=== PATIENT | male | born 1935 | race Caucasian/White ===

== ENCOUNTER 2017-01-31 03:10 | Emergency (ER) | payer MEDICAID, MEDICARE ==
[2017-01-31] MEDS ORDERED: ONDANSETRON 4 MG TAB.RAPDIS PO ONE (03:44)
--- NOTE | 2017-01-31 03:48 | ER Document Report ---
ED Blood Sugar Problem - General Chief Complaint: Low Blood Sugar Stated Complaint: BLOOD SUGAR PROBLEM Notes: The patient is a 81-year-old male, past medical history diabetes, presents after his accidentally gave him 20 units of Humalog instead of his usual 4 units of Humalog at midnight. He started to feel nauseous. EMS checked his blood sugar and they were 151, 99 and 148 while transporting him. Patient denies chest pain, shortness of breath, vomiting, diarrhea, constipation, abdominal pain, fevers or urinary symptoms. TRAVEL OUTSIDE OF THE [place] IN LAST 30 DAYS: No - Related Data Allergies/Adverse Reactions: Sulfa (Sulfonamide Antibiotics) Allergy (Unknown, Verified 07/13/15 21:33) Unknown childhood reaction ciprofloxacin [From Cipro] Allergy (Verified 07/13/15 21:33) Vomiting Penicillins Allergy (Verified 07/13/15 21:33) Itch, rash fentanyl [Fentanyl] Adverse Reaction (Verified 07/13/15 21:33) agitation when given in conjunction with Versed midazolam HCl [From Versed] Adverse Reaction (Verified 07/13/15 21:33) agitation when given in conjunction with Fentanyl Past Medical History - General Information source: Patient - Social History Smoking Status: Unknown if Ever Smoked Family History: Reviewed & Not Pertinent - Past Medical History Cardiac Medical History: Reports: Hx Coronary Artery Disease, Hx Heart Attack - NSTEMI 10/25/14, Hx Hypercholesterolemia, Hx Hypertension Neurological Medical History: Reports: Hx Cerebrovascular Accident - x 2, 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, RIGHT sided weakness, Hx Seizures - r/t episodes of hypoglycemia only Endocrine Medical History: Reports: Hx Diabetes Mellitus Type 2, Hx Hypothyroidism Renal/ Medical History: Reports: Hx Benign Prostatic Hyperplasia - requires straight cath for all bladder emptying Malignancy Medical History: GI Medical History: Reports: Hx Gastroesophageal Reflux Disease Musculoskeltal Medical History: Reports Hx Arthritis Psychiatric Medical History: Reports: Hx Depression Traumatic Medical History: Reports: Hx Fractures - LT hip approx 6 years ago Infectious Medical History: Past Surgical History: Reports: Hx Appendectomy, Hx Cholecystectomy, Hx Orthopedic Surgery - x2 hip replacement. - Immunizations Hx Diphtheria, Pertussis, Tetanus Vaccination: Yes Hx Pneumococcal Vaccination: 10/14/14 Review of Systems - Review of Systems Notes: REVIEW OF SYSTEMS: CONSTITUTIONAL: -fevers, -chills EENT: -eye pain, -difficulty swallowing, -nasal congestion CARDIOVASCULAR:-chest pain, -syncope. RESPIRATORY: -cough, -SOB GASTROINTESTINAL: -abdominal pain, +nausea, -vomiting, -diarrhea GENITOURINARY: -dysuria, -hematuria MUSCULOSKELETAL: -back pain, -neck pain SKIN: -rash or skin lesions. HEMATOLOGIC: -easy bruising or bleeding. LYMPHATIC: -swollen, enlarged glands. NEUROLOGICAL: -altered mental status or loss of consciousness, -headache, - neurologic symptoms PSYCHIATRIC: -anxiety, -depression. ALL OTHER SYSTEMS REVIEWED AND NEGATIVE. Physical Exam - Notes Notes: PHYSICAL EXAMINATION: GENERAL: Well-appearing, well-nourished and in no acute distress. HEAD: Atraumatic, normocephalic. EYES: Pupils equal round and reactive to light, extraocular movements intact, sclera anicteric, conjunctiva are normal. ENT: nares patent, oropharynx clear without exudates. Moist mucous membranes. NECK: Normal range of motion, supple without lymphadenopathy LUNGS: Breath sounds clear to auscultation bilaterally and equal. No wheezes rales or rhonchi. HEART: Regular rate and rhythm without murmurs ABDOMEN: Soft, nontender, normoactive bowel sounds. No guarding, no rebound. No masses appreciated. EXTREMITIES: Normal range of motion, no pitting or edema. Left BKA. NEUROLOGICAL: Cranial nerves grossly intact. Normal speech, normal gait. Normal sensory, motor, and reflex exams. PSYCH: Normal mood, normal affect. SKIN: Warm, Dry, normal turgor, no rashes or lesions noted. Course - Re-evaluation Re-evalutation: After Zofran, patient given food. Repeat Accu-Cheks checked during half-life of Humalog and patient did not become hypoglycemic. Will discharge him home - Laboratory Laboratory results interpreted by me: 01/31/17 01/31/17 03:23 04:41 POC Glucose 118 H 123 H Discharge - Discharge Clinical Impression: Overdose of insulin Qualifiers: Encounter type: initial encounter Injury intent: accidental or unintentional Qualified Code(s): T38.3X1A - Poisoning by insulin and oral hypoglycemic [ antidiabetic] drugs, accidental (unintentional), initial encounter Condition: Stable Disposition: HOME, SELF-CARE Additional Instructions: Overdose You have taken more medication than you should have. After your evaluation and care, it is felt that your overdose is not likely to be harmful or of any significant consequences to you and you are being discharged. In the future, you should be careful not to take more medications than what is prescribed for you. Although your overdose does not seem to be of any danger to you at this time, if you develop any unusual or unexpected symptoms after your discharge, you should return to the Emergency Department immediately for re-evaluation.
[2017-01-31 05:58] VITALS: BP 164/69
== END 2017-01-31 06:27 | disposition home or self-care (01) ==
LOC: ER 03:10
DX: T38.3X1A Poisoning by insulin and oral hypoglycemic [antidiabetic] drugs, accidental (unintentional), initial encounter (principal); R11.0 Nausea; E11.9 Type 2 diabetes mellitus without complications; Z79.4 Long term (current) use of insulin; I25.10 Atherosclerotic heart disease of native coronary artery without angina pectoris; I25.2 Old myocardial infarction; I10 Essential (primary) hypertension; Z86.73 Personal history of transient ischemic attack (TIA), and cerebral infarction without residual deficits; Z88.2 Allergy status to sulfonamides; Z88.1 Allergy status to other antibiotic agents; Z88.0 Allergy status to penicillin; Z89.512 Acquired absence of left leg below knee
CPT/HCPCS: 99283; 82962; A9270; S0119

== ENCOUNTER → 2017-04-15 | Outpatient (CLI) | payer MEDICARE ==
--- NOTE | 2017-04-17 07:35 | XCELERA REPORT ---
[address] [address] Lower Extremity Arterial Evaluation Name: NELSON BHAT Age: 82 yrs Gender: Male : 1935 Patient Status: Outpatient Patient Location: Study Date: 04/15/2017 03:31 PM Procedure: A color flow and duplex scan of the lower extremity arteries was performed on the left with velocity and waveform anaylsis. Reason For Study: ULCER LEFT FOOT Ordering Physician: KIM KENNEDY Performed By: Azam Putnam Measurements and Calculations Right Left TIMING ADJUSTER PSV 103.1 cm/sec Prox PFA PSV -160.1 cm/sec Dist SFA PSV -92.3 cm/sec Dist Pop A PSV 71.9 cm/sec Prox TYE PSV 38.0 cm/sec Mid OPTOMETRIC TECHNOLOGIST PSV 59.7 cm/sec George Pedis PSV 21.0 cm/sec Left Side Arterial Evaluation Normal velocity and triphasic waveforms noted from the Common Femoral artery to the Popliteal artery. Occlusion with no flow distally,in Anterior and Posterior Tibial arteries. Little distal flow except for monophasic with moderately preserved velocity in the Dorsalis Pedis. Occlusion as noted. Ankle Brachial index was not done. Interpretation Summary Severe hemodynamically significant lesions in the left lower extremity only, on duplex imaging, at rest. : KIM KENNEDY > Kim Kennedy
== END ==
LOC: SP 15:16
PROVIDERS: ATTEND Surgery
DX: L97.522 Non-pressure chronic ulcer of other part of left foot with fat layer exposed (principal)
CPT/HCPCS: 93926

== ENCOUNTER → 2017-05-16 | Outpatient (CLI) | payer MEDICARE ==
[2017-05-16 14:49] LABS: ABSOLUTE EOSINOPHILS # (AUTO) 0.1 10^3/uL (0.0-0.6); ABSOLUTE LYMPHOCYTES (AUTO) 1.7 10^3/uL (0.5-4.7); ABSOLUTE MONOCYTES (AUTO) 0.4 10^3/uL (0.1-1.4); ABSOLUTE NEUT (AUTO) 2.4 10^3/uL (1.7-8.2); BASOPHILS % (AUTO) 0.7 % (0-2); EOSINOPHILS % (AUTO) 2.2 % (0-6); HEMATOCRIT 31.3 % (37.9-51.0); HGB HCT DIFFERENCE 1.7; LYMPHOCYTES % (AUTO) 36.4 % (13-45); MEAN CORPUSCULAR HEMOGLOBIN 31.5 pg (27.0-33.4); MEAN CORPUSCULAR HGB CONC 35.1 g/dL (32.0-36.0); MEAN CORPUSCULAR VOLUME 90 fl (80-97); MONOCYTES % (AUTO) 8.2 % (3-13); RED BLOOD COUNT 3.49 10^6/uL (4.35-5.55); RED CELL DISTRIBUTION WIDTH 13.1 % (11.5-14.0); SEGMENTED NEUTROPHILS % (AUTO) 52.5 % (42-78); WHITE BLOOD COUNT 4.5 10^3/uL (4.0-10.5)
[2017-05-16 15:12] LABS: ALANINE AMINOTRANSFERASE 19 U/L (21-72); ALBUMIN 3.7 g/dL (3.5-5.0); ALKALINE PHOSPHATASE 75 U/L (38-126); ANION GAP 8 (5-19); ASPARTATE AMINO TRANSFERASE 20 U/L (17-59); BILIRUBIN,DIRECT 0.4 mg/dL (0.0-0.4); BILIRUBIN,TOTAL 0.5 mg/dL (0.2-1.3); BLOOD UREA NITROGEN 23 mg/dL (7-20); CALCIUM 9.9 mg/dL (8.4-10.2); CARBON DIOXIDE 31 mmol/L (22-30); CHLORIDE 101 mmol/L (98-107); CHOLESTEROL 124.65 mg/dL (0-200); CREATININE RESULT 1.82 mg/dL (0.52-1.25); Direct HDL 39 mg/dL (>40); GLUCOSE 166 mg/dL (75-110); POTASSIUM 4.4 mmol/L (3.6-5.0); SODIUM 140.4 mmol/L (137-145); TOTAL PROTEIN 6.7 g/dL (6.3-8.2); TRIGLYCERIDES 99 mg/dL (<150)
[2017-05-16 15:24] LABS: DIRECT LDL 66 mg/dL (<100)
[2017-05-16 15:41] LABS: THYROID STIMULATING HORMONE 2.42 uIU/mL (0.47-4.68)
[2017-05-18 10:57] LABS: VITAMIN D 25-HYDROXY 32.2 ng/mL (30.0-100.0)
== END ==
LOC: OD 13:44
PROVIDERS: ATTEND Internal Medicine Nephrology
DX: N18.3 Chronic kidney disease, stage 3 (moderate) (principal); E11.65 Type 2 diabetes mellitus with hyperglycemia; D63.8 Anemia in other chronic diseases classified elsewhere; E78.2 Mixed hyperlipidemia
CPT/HCPCS: 36415; 80053; 80061; 82306; 83036; 83970; 84439; 84443; 85025

== ENCOUNTER 2017-06-28 13:16 | Emergency (ER) | payer MEDICARE ==
[2017-06-28] MEDS ORDERED: LIDOCAINE 2% URO-JET 5 ML KIT MM ONE (13:38)
[2017-06-28 14:19] LABS: APPEARANCE,URINE CLOUDY; BILIRUBIN,URINE NEGATIVE (NEGATIVE); GLUCOSE, URINE >=500 mg/dL (NEGATIVE); KETONES,URINE NEGATIVE (NEGATIVE); LEUKOCYTE ESTERASE,URINE LARGE (NEGATIVE); NITRITE,URINE NEGATIVE (NEGATIVE); PROTEIN,URINE 100 mg/dL (NEGATIVE); UROBILINOGEN,URINE NEGATIVE mg/dL (<2.0)
[2017-06-28] MEDS ORDERED: CEPHALEXIN 500 MG CAPSULE PO ONE (15:25)
--- NOTE | 2017-06-28 15:27 | ER Document Report ---
ED General - General Chief Complaint: Penile Pain Stated Complaint: GROIN PAIN Time Seen by Provider: 06/28/17 13:28 TRAVEL OUTSIDE OF THE [place] IN LAST 30 DAYS: No - HPI Patient complains to provider of: Difficulty in urinating Notes: Patient coming in for difficulty urinating. Patient states urinated this morning however has not been able to urinate since that time. Patient states suprapubic pain patient states he feels the urge to urinate however cannot. Denies any recent Fajardo catheter instrumentation denies any fevers chills nausea vomiting patient resting calmly upon my evaluation. - Related Data Allergies/Adverse Reactions: Sulfa (Sulfonamide Antibiotics) Allergy (Unknown, Verified 07/13/15 21:33) Unknown childhood reaction ciprofloxacin [From Cipro] Allergy (Verified 07/13/15 21:33) Vomiting Penicillins Allergy (Verified 07/13/15 21:33) Itch, rash fentanyl [Fentanyl] Adverse Reaction (Verified 07/13/15 21:33) agitation when given in conjunction with Versed midazolam HCl [From Versed] Adverse Reaction (Verified 07/13/15 21:33) agitation when given in conjunction with Fentanyl Past Medical History - Social History Smoking Status: Never Smoker Chew tobacco use (# tins/day): No Frequency of alcohol use: None Drug Abuse: None Family History: Reviewed & Not Pertinent Patient has suicidal ideation: No Patient has homicidal ideation: No - Past Medical History Cardiac Medical History: Reports: Hx Coronary Artery Disease, Hx Heart Attack - NSTEMI 10/25/14, Hx Hypercholesterolemia, Hx Hypertension Neurological Medical History: Reports: Hx Cerebrovascular Accident - x 2, 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 Denies: Hx Peritoneal Dialysis Malignancy Medical History: GI Medical History: Reports: Hx Gastroesophageal Reflux Disease Musculoskeltal Medical History: Reports Hx Arthritis Psychiatric Medical History: Reports: Hx Depression Traumatic Medical History: Reports: Hx Fractures - LT hip approx 6 years ago Infectious Medical History: Past Surgical History: Reports: Hx Appendectomy, Hx Cholecystectomy, Hx Orthopedic Surgery - x2 hip replacement. - Immunizations Hx Diphtheria, Pertussis, Tetanus Vaccination: Yes Hx Pneumococcal Vaccination: 10/14/14 Review of Systems - Review of Systems Constitutional: No symptoms reported EENT: No symptoms reported Cardiovascular: No symptoms reported Respiratory: No symptoms reported Gastrointestinal: No symptoms reported Genitourinary: Retention Male Genitourinary: No symptoms reported Musculoskeletal: No symptoms reported Skin: No symptoms reported Hematologic/Lymphatic: No symptoms reported Neurological/Psychological: No symptoms reported -: Yes All other systems reviewed and negative Physical Exam - Vital signs Vitals: Temp Pulse Resp BP Pulse Ox 97.9 F 78 18 176/90 H 98 06/28/17 13:56 06/28/17 13:56 06/28/17 13:56 06/28/17 13:56 06/28/17 13:56 Interpretation: Normal - General General appearance: Appears well, Alert - HEENT Head: Normocephalic, Atraumatic Eyes: Normal Pupils: PERRL - Respiratory Respiratory status: No respiratory distress Chest status: Nontender Breath sounds: Normal Chest palpation: Normal - Cardiovascular Rhythm: Regular Heart sounds: Normal auscultation Murmur: No - Abdominal Inspection: Normal Distension: No distension Bowel sounds: Normal Tenderness: Nontender Organomegaly: No organomegaly - Genitourinary Inspection: Normal Tenderness: Nontender Cremasteric reflex: Normal Scrotum: Normal - Back Back: Normal, Nontender - Extremities General upper extremity: Normal inspection, Nontender, Normal color, Normal ROM , Normal temperature General lower extremity: Normal inspection, Nontender, Normal color, Normal ROM , Normal temperature, Normal weight bearing. No: Dereje's sign - Neurological Neuro grossly intact: Yes Cognition: Normal Orientation: AAOx4 Ivan Coma Scale Eye Opening: Spontaneous [place] Coma Scale Verbal: Oriented Ivan Coma Scale Motor: Obeys Commands [place] Coma Scale Total: 15 Speech: Normal Motor strength normal: LUE, RUE, LLE, RLE Sensory: Normal - Psychological Associated symptoms: Normal affect, Normal mood - Skin Skin Temperature: Warm Skin Moisture: Dry Skin Color: Normal Course - Re-evaluation Re-evalutation: 06/28/17 18:03 Urinalysis does show signs of infection. We will continue with the Fajardo catheter due to retention will discharge patient home follow-up with his PCP and urology. - Vital Signs Vital signs: Temp Pulse Resp BP Pulse Ox 97.7 F 85 18 175/76 H 99 06/28/17 17:37 06/28/17 17:37 06/28/17 17:37 06/28/17 17:37 06/28/17 14:21 - Laboratory Laboratory results interpreted by me: 06/28/17 06/28/17 14:00 17:15 POC Glucose 159 H Urine Protein 100 H Urine Glucose (UA) >=500 H Urine Blood SMALL H Ur Leukocyte Esterase LARGE H Discharge - Discharge Clinical Impression: Urinary retention UTI (urinary tract infection) Qualifiers: Urinary tract infection type: site unspecified Hematuria presence: without hematuria Qualified Code(s): N39.0 - Urinary tract infection, site not specified Condition: Good Disposition: HOME, SELF-CARE Instructions: Cephalexin ([facility]), Fajardo Catheter Care ([facility]), Urinary Tract Infection ([facility]) Additional Instructions: Follow-up with your primary care physician. Return to ER if symptoms worsen. Prescriptions: Cephalexin Monohydrate [Keflex 500 mg Capsule] 500 mg PO Q6H 10 Days capsule
[2017-06-28 17:38] VITALS: BP 175/76
== END 2017-06-28 17:38 | disposition home or self-care (01) ==
LOC: ER 13:16
DX: N39.0 Urinary tract infection, site not specified (principal); R33.9 Retention of urine, unspecified; N48.89 Other specified disorders of penis; R10.30 Lower abdominal pain, unspecified
CPT/HCPCS: 99283; 87086; 82962; 81001; A9270

== ENCOUNTER 2017-07-01 13:35 | Emergency (ER) | payer MEDICARE ==
[2017-07-01 14:00] VITALS: BP 133/62
--- NOTE | 2017-07-01 14:36 | ER Document Report ---
ED General - General Chief Complaint: Problem with Urinary Catheter Stated Complaint: CATHETER PROBLEM Time Seen by Provider: 07/01/17 14:22 TRAVEL OUTSIDE OF THE [place] IN LAST 30 DAYS: No - HPI Notes: Patient is an 82-year-old male who presents the ED for urinary catheter removal per patient request. Patient states that he was placed on Keflex and given a urinary catheter 3 days ago for urinary frequency and possible retention. Patient states that he is still eating and drinking without any difficulties. He continues take the antibiotic without any problems. He has not noticed any blood in his urine. Patient believes that he can have the catheter out he will be okay. Patient did not have a urinary catheter prior. Patient is scheduled to see a urologist in 2-3 weeks. No other concerns or complaints at this time. Denies any headache, fever, URI, sore throat, chest pain, palpitations, syncope, cough, shortness of breath, wheeze, dyspnea, abdominal pain, nausea/ vomiting/diarrhea, hematuria, or rash. - Related Data Allergies/Adverse Reactions: Sulfa (Sulfonamide Antibiotics) Allergy (Unknown, Verified 07/01/17 13:57) Unknown childhood reaction ciprofloxacin [From Cipro] Allergy (Verified 07/01/17 13:57) Vomiting Penicillins Allergy (Verified 07/01/17 13:57) Itch, rash fentanyl [Fentanyl] Adverse Reaction (Verified 07/01/17 13:57) agitation when given in conjunction with Versed midazolam HCl [From Versed] Adverse Reaction (Verified 07/01/17 13:57) agitation when given in conjunction with Fentanyl Past Medical History - Social History Smoking Status: Unknown if Ever Smoked Family History: Reviewed & Not Pertinent Patient has suicidal ideation: No - Past Medical History Cardiac Medical History: Reports: Hx Coronary Artery Disease, Hx Heart Attack - NSTEMI 10/25/14, Hx Hypercholesterolemia, Hx Hypertension Neurological Medical History: Reports: Hx Cerebrovascular Accident - x 2, 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 Denies: Hx Peritoneal Dialysis Malignancy Medical History: GI Medical History: Reports: Hx Gastroesophageal Reflux Disease Musculoskeltal Medical History: Reports Hx Arthritis Psychiatric Medical History: Reports: Hx Depression Traumatic Medical History: Reports: Hx Fractures - LT hip approx 6 years ago Infectious Medical History: Past Surgical History: Reports: Hx Appendectomy, Hx Cholecystectomy, Hx Orthopedic Surgery - x2 hip replacement. - Immunizations Hx Diphtheria, Pertussis, Tetanus Vaccination: Yes Hx Pneumococcal Vaccination: 10/14/14 Review of Systems - Review of Systems Notes: REVIEW OF SYSTEMS: CONSTITUTIONAL : Denies fever, chills, or sweats. Denies recent illness. EENT: Denies eye, ear, throat, or mouth pain or symptoms. Denies nasal or sinus congestion or discharge. Denies throat, tongue, or mouth swelling or difficulty swallowing. CARDIOVASCULAR: Denies chest pain. Denies palpitations or racing or irregular heart beat. Denies ankle edema. RESPIRATORY: Denies cough, cold, or chest congestion. Denies shortness of breath, difficulty breathing, or wheezing. GASTROINTESTINAL: Denies abdominal pain or distention. Denies nausea, vomiting , or diarrhea. Denies blood in vomitus, stools, or per rectum. Denies black, tarry stools. Denies constipation. GENITOURINARY: see hpi MUSCULOSKELETAL: Denies back or neck pain or stiffness. Denies joint pain or swelling. SKIN: Denies rash, lesions or sores. NEUROLOGICAL: Denies confusion or altered mental status. Denies passing out or loss of consciousness. Denies dizziness or lightheadedness. Denies headache. Denies weakness or paralysis or loss of use of either side. Denies problems with gait or speech. Denies sensory loss, numbness, or tingling. ALL OTHER SYSTEMS REVIEWED AND NEGATIVE. Dictation was performed using [employer] voice recognition software Physical Exam - Vital signs Vitals: Temp Pulse BP Pulse Ox 98.0 F 66 133/62 H 99 07/01/17 13:56 07/01/17 13:56 07/01/17 13:56 07/01/17 13:56 Notes: PHYSICAL EXAMINATION: GENERAL: Well-appearing, well-nourished and in no acute distress. LUNGS: Breath sounds clear to auscultation bilaterally and equal. No wheezes rales or rhonchi. HEART: Regular rate and rhythm without murmurs, rubs, gallops. ABDOMEN: Soft, nontender, nondistended abdomen. No guarding, no rebound. No masses appreciated. Normal bowel sounds present. No CVA tenderness bilaterally. Extremities: No cyanosis, clubbing, or edema b/l. Peripheral pulses 2+. Capillary refill less than 3 seconds. PSYCH: Normal mood, normal affect. SKIN: Warm, Dry, normal turgor, no rashes or lesions noted. Course - Re-evaluation Re-evalutation: 07/01/17 14:[address] Hopkins who is in agreement with discharge/plan: Patient is an afebrile, well-hydrated, 82-year-old male who presents the ED for urinary catheter removal. Vitals are stable. PE otherwise unremarkable. Patient is still taking Keflex. Urine culture was negative. At this time we will pull the urinary catheter. Patient to monitor symptoms closely at home and if having any trouble urinating is to return for reinsertion of urinary catheter. Risks and benefits are understood by and patient. Recheck with your PCM this week. Keep consult with urology as scheduled. Return to the ED with any worsening/concerning symptoms otherwise as reviewed in discharge. Patient/ are in agreement. - Vital Signs Vital signs: Temp Pulse Resp BP Pulse Ox 98.0 F 66 133/62 H 99 07/01/17 13:56 07/01/17 13:56 07/01/17 13:56 07/01/17 13:56 Discharge - Discharge Clinical Impression: Encounter for Fajardo catheter removal Condition: Stable Disposition: HOME, SELF-CARE Additional Instructions: Maintain adequate fluid and food intake Tylenol/ibuprofen as needed Continue your antibiotics Make sure you are able to urinate within 6 hours Recheck with your PCM this week keep your scheduled appointment with urology Return to the ED with any worsening symptoms and/or development of fever, headache, chest pain, palpitations, syncope, shortness of breath, trouble breathing, abdominal pain, n/v/d, blood in stool/urine, loss of control of bowel /bladder, urinary retention, urinary frequency, or other worsening symptoms that are concerning to you. Forms: Elevated Blood Pressure Referrals: [facility] [Provider Group] - Follow up as needed
== END 2017-07-01 15:02 | disposition home or self-care (01) ==
LOC: ER 13:35
DX: Z46.6 Encounter for fitting and adjustment of urinary device (principal); R35.0 Frequency of micturition; E11.9 Type 2 diabetes mellitus without complications; I25.10 Atherosclerotic heart disease of native coronary artery without angina pectoris; I25.2 Old myocardial infarction; I10 Essential (primary) hypertension; Z88.2 Allergy status to sulfonamides; Z88.1 Allergy status to other antibiotic agents; Z88.0 Allergy status to penicillin
CPT/HCPCS: 99283

== ENCOUNTER 2017-10-06 14:29 | Emergency (ER) | payer MEDICARE ==
--- NOTE | 2017-10-06 15:26 | ER Document Report ---
ED Medical Screen (RME) - General Chief Complaint: Wound Infection Stated Complaint: ULCER Time Seen by Provider: 10/06/17 15:13 Mode of Arrival: Ambulatory Information source: Patient Notes: 82-year-old diabetic male presents with complaints of ulcerations of the left heel over the past 4 days I have greeted and performed a rapid initial assessment of this patient. A comprehensive ED assessment and evaluation of the patient, analysis of test results and completion of the medical decision making process will be conducted by additional ED providers. PHYSICAL EXAMINATION: GENERAL: Well-appearing, well-nourished and in no acute distress. HEAD: Atraumatic, normocephalic. EYES: Pupils equal round extraocular movements intact, conjunctiva are normal. ENT: Nares patent NECK: Normal range of motion LUNGS: No respiratory distress Musculoskeletal: Ulceration left lateral heel NEUROLOGICAL: Normal speech, normal gait. PSYCH: Normal mood, normal affect. SKIN: Warm, Dry, normal turgor, no rashes or lesions noted. TRAVEL OUTSIDE OF THE [place] IN LAST 30 DAYS: No - Related Data Allergies/Adverse Reactions: Sulfa (Sulfonamide Antibiotics) Allergy (Unknown, Verified 10/06/17 14:31) Unknown childhood reaction ciprofloxacin [From Cipro] Allergy (Verified 10/06/17 14:31) Vomiting Penicillins Allergy (Verified 10/06/17 14:31) Itch, rash fentanyl [Fentanyl] Adverse Reaction (Verified 10/06/17 14:31) agitation when given in conjunction with Versed midazolam HCl [From Versed] Adverse Reaction (Verified 10/06/17 14:31) agitation when given in conjunction with Fentanyl Past Medical History - Past Medical History Cardiac Medical History: Reports: Hx Coronary Artery Disease, Hx Heart Attack - NSTEMI 10/25/14, Hx Hypercholesterolemia, Hx Hypertension Neurological Medical History: Reports: Hx Cerebrovascular Accident - x 2, 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 Denies: Hx Peritoneal Dialysis Malignancy Medical History: GI Medical History: Reports: Hx Gastroesophageal Reflux Disease. Denies: Hx Pancreatitis Musculoskeltal Medical History: Reports Hx Arthritis Psychiatric Medical History: Reports: Hx Depression Traumatic Medical History: Reports: Hx Fractures - LT hip approx 6 years ago Infectious Medical History: Past Surgical History: Reports: Hx Appendectomy, Hx Cholecystectomy, Hx Orthopedic Surgery - x2 hip replacement. - Immunizations Hx Diphtheria, Pertussis, Tetanus Vaccination: Yes Physical Exam - Vital signs Vitals: Temp Pulse Resp BP Pulse Ox 97.9 F 70 19 125/47 L 99 10/06/17 14:36 10/06/17 14:36 10/06/17 14:36 10/06/17 14:36 10/06/17 14:36 Course - Vital Signs Vital signs: Temp Pulse Resp BP Pulse Ox 97.9 F 70 19 125/47 L 99 10/06/17 14:36 10/06/17 14:36 10/06/17 14:36 10/06/17 14:36 10/06/17 14:36
--- NOTE | 2017-10-06 15:56 | RADIOLOGY REPORT (SQ) ---
EXAM DESCRIPTION: FOOT LEFT COMPLETE COMPLETED DATE/TIME: 10/06/2017 3:47 pm REASON FOR STUDY: ulcer left lateral ankle COMPARISON: 04/17/2012 NUMBER OF VIEWS: Three views. TECHNIQUE: AP, lateral and oblique radiographic images acquired of the left foot. LIMITATIONS: None. FINDINGS: MINERALIZATION: Osteopenia. BONES: No acute fracture or dislocation. No worrisome bone lesions. Stable degree calcaneal spurrin g. JOINTS: Mild diffuse osteoarthritis. SOFT TISSUES: Vascular calcifications. OTHER: No other significant finding. IMPRESSION: NO RADIOGRAPHIC EVIDENCE OF ACUTE INJURY. CHRONIC CHANGES ABOVE. TECHNICAL DOCUMENTATION: JOB ID: [id number] [employer]- All Rights Reserved
[2017-10-06] MEDS ORDERED: CLINDAMYCIN HCL 150 MG CAPSULE PO ONE (16:37)
--- NOTE | 2017-10-06 17:10 | ER Document Report ---
ED General - General Chief Complaint: Wound Infection Stated Complaint: ULCER Time Seen by Provider: 10/06/17 15:13 Mode of Arrival: Ambulatory TRAVEL OUTSIDE OF THE [place].S. IN LAST 30 DAYS: No - HPI Patient complains to provider of: Left foot ulcer Notes: Patient coming in for evaluation left foot ulcer. Patient states ongoing for the last 4 days has been caring for it with a dressing and Neosporin. States surrounding redness. 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 Denies any fever chills nausea vomiting diarrhea. - Related Data Allergies/Adverse Reactions: Sulfa (Sulfonamide Antibiotics) Allergy (Unknown, Verified 10/06/17 14:31) Unknown childhood reaction ciprofloxacin [From Cipro] Allergy (Verified 10/06/17 14:31) Vomiting Penicillins Allergy (Verified 10/06/17 14:31) Itch, rash fentanyl [Fentanyl] Adverse Reaction (Verified 10/06/17 14:31) agitation when given in conjunction with Versed midazolam HCl [From Versed] Adverse Reaction (Verified 10/06/17 14:31) agitation when given in conjunction with Fentanyl Past Medical History - General Information source: Patient - Social History Smoking Status: Former Smoker Chew tobacco use (# tins/day): No Frequency of alcohol use: None Drug Abuse: None Family History: Reviewed & Not Pertinent Patient has suicidal ideation: No Patient has homicidal ideation: No - Past Medical History Cardiac Medical History: Reports: Hx Coronary Artery Disease, Hx Heart Attack - NSTEMI 10/25/14, Hx Hypercholesterolemia, Hx Hypertension Neurological Medical History: Reports: Hx Cerebrovascular Accident - x 2, 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 Denies: Hx Peritoneal Dialysis Malignancy Medical History: GI Medical History: Reports: Hx Gastroesophageal Reflux Disease. Denies: Hx Pancreatitis Musculoskeltal Medical History: Reports Hx Arthritis Psychiatric Medical History: Reports: Hx Depression Traumatic Medical History: Reports: Hx Fractures - LT hip approx 6 years ago Infectious Medical History: Past Surgical History: Reports: Hx Appendectomy, Hx Cholecystectomy, Hx Orthopedic Surgery - x2 hip replacement. - Immunizations Hx Diphtheria, Pertussis, Tetanus Vaccination: Yes Hx Pneumococcal Vaccination: 10/14/14 Review of Systems - Review of Systems Constitutional: No symptoms reported EENT: No symptoms reported Cardiovascular: No symptoms reported Respiratory: No symptoms reported Gastrointestinal: No symptoms reported Genitourinary: No symptoms reported Male Genitourinary: No symptoms reported Musculoskeletal: No symptoms reported Skin: Other - Foot ulcer Hematologic/Lymphatic: No symptoms reported Neurological/Psychological: No symptoms reported Physical Exam - Vital signs Vitals: Temp Pulse Resp BP Pulse Ox 97.9 F 70 19 125/47 L 99 10/06/17 14:36 10/06/17 14:36 10/06/17 14:36 10/06/17 14:36 10/06/17 14:36 Interpretation: Normal - General General appearance: Appears well, Alert - HEENT Head: Normocephalic, Atraumatic Eyes: Normal Pupils: PERRL - Respiratory Respiratory status: No respiratory distress Chest status: Nontender Breath sounds: Normal Chest palpation: Normal - Cardiovascular Rhythm: Regular Heart sounds: Normal auscultation Murmur: No - Abdominal Inspection: Normal Distension: No distension Bowel sounds: Normal Tenderness: Nontender Organomegaly: No organomegaly - Back Back: Normal, Nontender - Extremities General upper extremity: Normal inspection, Nontender, Normal color, Normal ROM , Normal temperature General lower extremity: Other - Patient with right AKA patient with a left ulcer to the lateral portion of the heel approximately 3 cm x 3 cm with surrounding erythema that is concerning for stability process. There is no purulent drainage. Stage I-2 - Neurological Neuro grossly intact: Yes Cognition: Normal Orientation: AAOx4 Whitehouse Coma Scale Eye Opening: Spontaneous Whitehouse Coma Scale Verbal: Oriented Whitehouse Coma Scale Motor: Obeys Commands Ivan Coma Scale Total: 15 Speech: Normal Motor strength normal: LUE, RUE, LLE, RLE Sensory: Normal - Psychological Associated symptoms: Normal affect, Normal mood - Skin Skin Temperature: Warm Skin Moisture: Dry Skin Color: Normal Course - Re-evaluation Re-evalutation: 10/06/17 21:21 Due to the patient's allergies to penicillin and sulfa will start patient on clindamycin. Patient was encouraged to take probiotics and eat yogurt. Patient is also encouraged follow-up for wound check in the next 48-72 hours. Bulky dressing was placed encouraged the to change dressings approximately twice a day. I also have our certified social workers in health care contact wound care and contact the patient to establish follow-up. - Vital Signs Vital signs: Temp Pulse Resp BP Pulse Ox 97.8 F 66 18 131/67 H 95 10/06/17 17:20 10/06/17 17:20 10/06/17 17:20 10/06/17 17:20 10/06/17 17:20 Discharge - Discharge Clinical Impression: Diabetic wound, Wound infection Condition: Good Disposition: HOME, SELF-CARE Instructions: Wound Infection ([facility]) Additional Instructions: Please change dressings twice a day. He may place a triple antibiotic ointment on the wound. Return to ER if symptoms worsen. Follow-up with your primary care physician. I highly recommend following up with wound care as well please take antibiotics as prescribed. I will have our certified social workers in health care contact you and wound care to make sure we can follow-up and establish you an appointment. Prescriptions: Clindamycin HCl [Cleocin 150 mg Capsule] 150 mg PO Q6 #40 capsule Referrals: Wound Care [Provider Group] - Follow up as needed
[2017-10-06 17:26] VITALS: BP 131/67
== END 2017-10-06 17:27 | disposition home or self-care (01) ==
LOC: ER 14:29
DX: E11.621 Type 2 diabetes mellitus with foot ulcer (principal); Z87.891 Personal history of nicotine dependence
CPT/HCPCS: 99283; 73630; A9270

== ENCOUNTER → 2017-11-13 | Outpatient (CLI) | payer MEDICARE ==
[2017-11-13 16:11] LABS: ABSOLUTE EOSINOPHILS # (AUTO) 0.1 10^3/uL (0.0-0.6); ABSOLUTE LYMPHOCYTES (AUTO) 2.5 10^3/uL (0.5-4.7); ABSOLUTE MONOCYTES (AUTO) 0.6 10^3/uL (0.1-1.4); ABSOLUTE NEUT (AUTO) 4.3 10^3/uL (1.7-8.2); BASOPHILS % (AUTO) 0.4 % (0-2); EOSINOPHILS % (AUTO) 1.6 % (0-6); HEMATOCRIT 34.7 % (37.9-51.0); HEMOGLOBIN 11.9 g/dL (13.5-17.0); LYMPHOCYTES % (AUTO) 33.1 % (13-45); MEAN CORPUSCULAR HEMOGLOBIN 30.6 pg (27.0-33.4); MEAN CORPUSCULAR HGB CONC 34.3 g/dL (32.0-36.0); MEAN CORPUSCULAR VOLUME 89 fl (80-97); PLATELET COUNT 222 10^3/uL (150-450); RED BLOOD COUNT 3.89 10^6/uL (4.35-5.55); RED CELL DISTRIBUTION WIDTH 12.8 % (11.5-14.0); SEGMENTED NEUTROPHILS % (AUTO) 56.9 % (42-78); TOTAL CELLS COUNTED % (AUTO) 100 %; WHITE BLOOD COUNT 7.6 10^3/uL (4.0-10.5)
[2017-11-13 16:30] LABS: ALANINE AMINOTRANSFERASE 23 U/L (21-72); ALBUMIN 4.1 g/dL (3.5-5.0); ALKALINE PHOSPHATASE 70 U/L (38-126); ANION GAP 8 (5-19); ASPARTATE AMINO TRANSFERASE 18 U/L (17-59); BILIRUBIN,DIRECT 0.5 mg/dL (0.0-0.4); BILIRUBIN,TOTAL 0.5 mg/dL (0.2-1.3); BLOOD UREA NITROGEN 29 mg/dL (7-20); CALCIUM 10.5 mg/dL (8.4-10.2); CARBON DIOXIDE 28 mmol/L (22-30); CHLORIDE 99 mmol/L (98-107); GLUCOSE 241 mg/dL (75-110); POTASSIUM 4.9 mmol/L (3.6-5.0); SODIUM 135.4 mmol/L (137-145); TOTAL PROTEIN 6.9 g/dL (6.3-8.2)
== END ==
LOC: WC 15:18
PROVIDERS: ATTEND Surgery
DX: E11.621 Type 2 diabetes mellitus with foot ulcer (principal); L97.422 Non-pressure chronic ulcer of left heel and midfoot with fat layer exposed
CPT/HCPCS: 36415; 80053; 85025

== ENCOUNTER → 2017-12-04 | Outpatient (CLI) | payer MEDICARE ==
[2017-12-04 12:42] LABS: ABSOLUTE EOSINOPHILS # (AUTO) 0.1 10^3/uL (0.0-0.6); ABSOLUTE MONOCYTES (AUTO) 0.5 10^3/uL (0.1-1.4); BASOPHILS % (AUTO) 0.4 % (0-2); EOSINOPHILS % (AUTO) 1.4 % (0-6); HEMATOCRIT 34.9 % (37.9-51.0); HEMOGLOBIN 12.1 g/dL (13.5-17.0); MEAN CORPUSCULAR HEMOGLOBIN 30.6 pg (27.0-33.4); MEAN CORPUSCULAR HGB CONC 34.6 g/dL (32.0-36.0); MEAN CORPUSCULAR VOLUME 89 fl (80-97); MONOCYTES % (AUTO) 7.1 % (3-13); PLATELET COUNT 197 10^3/uL (150-450); RED BLOOD COUNT 3.94 10^6/uL (4.35-5.55); SEGMENTED NEUTROPHILS % (AUTO) 65.1 % (42-78); TOTAL CELLS COUNTED % (AUTO) 100 %; WHITE BLOOD COUNT 7.7 10^3/uL (4.0-10.5)
[2017-12-04 12:59] LABS: ANION GAP 9 (5-19); BLOOD UREA NITROGEN 28 mg/dL (7-20); CARBON DIOXIDE 30 mmol/L (22-30); CHLORIDE 101 mmol/L (98-107); GLUCOSE 123 mg/dL (75-110); POTASSIUM 5.1 mmol/L (3.6-5.0); SODIUM 140.4 mmol/L (137-145)
[2017-12-06 14:12] LABS: APPEARANCE,URINE CLEAR; BILIRUBIN,URINE NEGATIVE (NEGATIVE); COLOR,URINE YELLOW; GLUCOSE, URINE >=500 mg/dL (NEGATIVE); KETONES,URINE NEGATIVE (NEGATIVE); LEUKOCYTE ESTERASE,URINE NEGATIVE (NEGATIVE); NITRITE,URINE NEGATIVE (NEGATIVE); PROTEIN,URINE 30 mg/dL (NEGATIVE); URINE SPECIFIC GRAVITY 1.014; UROBILINOGEN,URINE NEGATIVE mg/dL (<2.0)
[2017-12-06 14:39] LABS: UR PRO/CREAT RATIO RESULT 0.3 mg/mg (0.0-0.2); URINE CREATININE 98.7 mg/dL (22-328); URINE PROTEIN 30.3 mg/dL (<12)
== END ==
LOC: OD 11:17
PROVIDERS: ATTEND Internal Medicine Nephrology
DX: E11.22 Type 2 diabetes mellitus with diabetic chronic kidney disease (principal); E11.65 Type 2 diabetes mellitus with hyperglycemia; N18.3 Chronic kidney disease, stage 3 (moderate); D63.8 Anemia in other chronic diseases classified elsewhere; R80.9 Proteinuria, unspecified
CPT/HCPCS: 36415; 80048; 81001; 82570; 83036; 84156; 85025

== ENCOUNTER 2017-12-06 18:38 | Emergency (ER) | payer MEDICARE ==
[2017-12-06] MEDS ORDERED: LIDOCAINE 2% URO-JET 5 ML KIT MM ONE (20:03)
--- NOTE | 2017-12-06 20:05 | ER Document Report ---
ED GI/ - General Chief Complaint: Urinary Retention Stated Complaint: TROUBLE URINATING Time Seen by Provider: 12/06/17 19:49 Notes: Patient is an 82-year-old male that comes emergency department for chief complaint of being unable to urinate. Patient has known history of BPH, he frequently has to have self catheterization performed at home (his significant other does this for him), however she states that earlier today she was unable to successfully perform a catheterization. Patient states he has a fullness and discomfort in his groin area (he points to the suprapubic area), however he denies nausea vomiting, fever chills, flank pain. He has a urologist, Dr. Santiago, at [facility]. TRAVEL OUTSIDE OF THE U.S. IN LAST 30 DAYS: No - Related Data Allergies/Adverse Reactions: Sulfa (Sulfonamide Antibiotics) Allergy (Unknown, Verified 12/06/17 18:39) Unknown childhood reaction ciprofloxacin [From Cipro] Allergy (Verified 12/06/17 18:39) Vomiting Penicillins Allergy (Verified 12/06/17 18:39) Itch, rash fentanyl [Fentanyl] Adverse Reaction (Verified 12/06/17 18:39) agitation when given in conjunction with Versed midazolam HCl [From Versed] Adverse Reaction (Verified 12/06/17 18:39) agitation when given in conjunction with Fentanyl Past Medical History - General Information source: Patient, Relative - Social History Smoking Status: Never Smoker Chew tobacco use (# tins/day): No Frequency of alcohol use: None Drug Abuse: None Lives with: Family Family History: Reviewed & Not Pertinent Patient has suicidal ideation: No Patient has homicidal ideation: No - Past Medical History Cardiac Medical History: Reports: Hx Coronary Artery Disease, Hx Heart Attack - NSTEMI 10/25/14, Hx Hypercholesterolemia, Hx Hypertension Neurological Medical History: Reports: Hx Cerebrovascular Accident - x 2, 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 Denies: Hx Peritoneal Dialysis Malignancy Medical History: GI Medical History: Reports: Hx Gastroesophageal Reflux Disease. Denies: Hx Pancreatitis Musculoskeltal Medical History: Reports Hx Arthritis Psychiatric Medical History: Reports: Hx Depression Traumatic Medical History: Reports: Hx Fractures - LT hip approx 6 years ago Infectious Medical History: Past Surgical History: Reports: Hx Appendectomy, Hx Cholecystectomy, Hx Orthopedic Surgery - x2 hip replacement. - Immunizations Hx Diphtheria, Pertussis, Tetanus Vaccination: Yes Hx Pneumococcal Vaccination: 10/14/14 Review of Systems - Review of Systems Constitutional: No symptoms reported EENT: No symptoms reported Cardiovascular: No symptoms reported Respiratory: No symptoms reported Gastrointestinal: No symptoms reported Genitourinary: See HPI Male Genitourinary: No symptoms reported Musculoskeletal: No symptoms reported Skin: No symptoms reported Hematologic/Lymphatic: No symptoms reported Neurological/Psychological: No symptoms reported Physical Exam - Vital signs Vitals: Temp Pulse Resp BP Pulse Ox 97.9 F 77 16 156/71 H 97 12/06/17 18:44 12/06/17 18:44 12/06/17 18:44 12/06/17 18:44 12/06/17 18:44 Interpretation: Normal - General General appearance: Appears well In distress: None - HEENT Head: Normocephalic, Atraumatic Eyes: Normal Pupils: PERRL - Respiratory Respiratory status: No respiratory distress Chest status: Nontender Breath sounds: Normal Chest palpation: Normal - Cardiovascular Rhythm: Regular Heart sounds: Normal auscultation Murmur: No - Abdominal Inspection: Normal Distension: No distension Bowel sounds: Normal Tenderness: Tender - Mild suprapubic tenderness, otherwise unremarkable abdominal exam, no significant distention Organomegaly: No organomegaly - Back Back: Normal, Nontender. No: Tender, CVA tenderness - Extremities General upper extremity: Normal inspection, Nontender, Normal color, Normal ROM , Normal temperature General lower extremity: Normal inspection, Nontender, Normal color, Normal ROM , Normal temperature, Normal weight bearing. No: Dereje's sign - Neurological Neuro grossly intact: Yes Cognition: Normal Orientation: AAOx4 Ivan Coma Scale Eye Opening: Spontaneous Woody Coma Scale Verbal: Oriented Ivan Coma Scale Motor: Obeys Commands Ivan Coma Scale Total: 15 Speech: Normal Motor strength normal: LUE, RUE, LLE, RLE Sensory: Normal - Psychological Associated symptoms: Normal affect, Normal mood - Skin Skin Temperature: Warm Skin Moisture: Dry Skin Color: Normal Course - Re-evaluation Re-evalutation: I performed a quick bedside ultrasound, ultrasound does show distended urinary bladder. Discussed with patient and , offered straight cath versus Fajardo catheterization with leg bag. They state they have been having a lot of trouble with this, concerned that they will have more trouble at home, request a leg bag. This was performed, about 600 cc of initial drainage was obtained, patient tolerated procedure without any difficulty or bleeding. Patient has urology follow-up, he goes to the local office, states he does not have a appointment until the , provided him with the [place] office to have closer follow-up. Discussed follow-up, return precautions with patient and significant other. They state understanding and agreement. - Vital Signs Vital signs: Temp Pulse Resp BP Pulse Ox 98.3 F 78 16 157/64 H 96 12/06/17 21:39 12/06/17 21:39 12/06/17 21:39 12/06/17 21:39 12/06/17 21:39 - Laboratory Laboratory results interpreted by me: 12/06/17 20:50 Urine Glucose (UA) >=500 H Urine Blood SMALL H Discharge - Discharge Clinical Impression: Urinary retention BPH (benign prostatic hyperplasia) Qualifiers: Lower urinary tract symptom presence: symptoms present Lower urinary tract symptom detail: unspecified Qualified Code(s): N40.1 - Benign prostatic hyperplasia with lower urinary tract symptoms Condition: Stable Disposition: HOME, SELF-CARE Additional Instructions: We have a urine culture growing in our lab. We will contact you for any concerning results. Leave the Fajardo bag in place for now, please call urology and perform a close follow-up for additional evaluation and management. Return to emergency department for any concerning symptoms including abdominal pain, vomiting, temperature of 100.4 or greater, or any other concerning symptoms. [facility] Urologist in [place], [place] Address: [address] [place] [id number] [facility] in [place], [place] Address: [address] , [place] [id number] Referrals: KIM RAMIREZ MD [Primary Care Provider] - Follow up as needed
[2017-12-06 21:09] LABS: APPEARANCE,URINE CLEAR; BILIRUBIN,URINE NEGATIVE (NEGATIVE); COLOR,URINE STRAW; GLUCOSE, URINE >=500 mg/dL (NEGATIVE); KETONES,URINE NEGATIVE (NEGATIVE); LEUKOCYTE ESTERASE,URINE NEGATIVE (NEGATIVE); NITRITE,URINE NEGATIVE (NEGATIVE); PROTEIN,URINE NEGATIVE (NEGATIVE); URINE SPECIFIC GRAVITY 1.015; UROBILINOGEN,URINE NEGATIVE mg/dL (<2.0)
[2017-12-06 21:52] VITALS: BP 157/64
== END 2017-12-06 21:52 | disposition home or self-care (01) ==
LOC: ER 18:38
DX: N40.1 Benign prostatic hyperplasia with lower urinary tract symptoms (principal); R33.9 Retention of urine, unspecified; R35.0 Frequency of micturition
CPT/HCPCS: 99284; 51702; 87086; 81001; A9270; J3490

== ENCOUNTER 2018-01-22 05:13 | Inpatient (IN) | payer MEDICARE ==
[2018-01-22] MEDS ORDERED: ONDANSETRON HCL INJ/PF 4 MG/2 ML SDV IV ONE (05:29)
--- NOTE | 2018-01-22 05:37 | ER Document Report ---
Doctor's Note Notes: 01/22/18 05:36 I performed a quick triage evaluation the patient. Patient is a pleasant 82- year-old male who presents with complaint of episode of hypoglycemia. This apparently has happened in the past. She has been changed to a new insulin. The paramedics his gave him 25 units of Humulin because his blood sugar was the upper 200s. After this the patient became poorly responsive and had almost like a seizure-like episode. When paramedics arrived his blood sugar was very low. They gave him several doses of D10. He also had an 88-appearing bladder jelly sandwich. They then brought him to the ER. Patient currently denies any pain. He looks well. He has some mild nausea. He denies any recent fevers or infections. He has no other complaints at this time. I have ordered baseline labs as well as ordered to do every hour Accu-Cheks as well as to give the patient some food. Currently his blood sugar is 146.
[2018-01-22 05:57] LABS: ABSOLUTE EOSINOPHILS # (AUTO) 0.1 10^3/uL (0.0-0.6); ABSOLUTE LYMPHOCYTES (AUTO) 1.6 10^3/uL (0.5-4.7); ABSOLUTE MONOCYTES (AUTO) 0.4 10^3/uL (0.1-1.4); BASOPHILS % (AUTO) 0.5 % (0-2); EOSINOPHILS % (AUTO) 1.2 % (0-6); HEMATOCRIT 39.2 % (37.9-51.0); HEMOGLOBIN 12.9 g/dL (13.5-17.0); MEAN CORPUSCULAR HEMOGLOBIN 29.5 pg (27.0-33.4); MEAN CORPUSCULAR VOLUME 89 fl (80-97); MONOCYTES % (AUTO) 5.1 % (3-13); PLATELET COUNT 273 10^3/uL (150-450); RED BLOOD COUNT 4.39 10^6/uL (4.35-5.55); RED CELL DISTRIBUTION WIDTH 13.9 % (11.5-14.0); SEGMENTED NEUTROPHILS % (AUTO) 70.2 % (42-78); TOTAL CELLS COUNTED % (AUTO) 100 %; WHITE BLOOD COUNT 7.1 10^3/uL (4.0-10.5)
[2018-01-22 06:18] LABS: ANION GAP 13 (5-19); BLOOD UREA NITROGEN 23 mg/dL (7-20); CALCIUM 10.2 mg/dL (8.4-10.2); CARBON DIOXIDE 25 mmol/L (22-30); CHLORIDE 106 mmol/L (98-107); GLUCOSE 127 mg/dL (75-110); POTASSIUM 3.9 mmol/L (3.6-5.0); SODIUM 143.6 mmol/L (137-145)
--- NOTE | 2018-01-22 06:43 | ER Document Report ---
ED General - General Chief Complaint: Low Blood Sugar Stated Complaint: BLOOD SUGAR PROBLEM Time Seen by Provider: 01/22/18 05:28 Mode of Arrival: Medic Information source: Patient, Emergency Med Personnel Notes: 82-year-old diabetic male on Humulin presents with hypoglycemia seizure-like episode. gave patient 25 units of Humulin 7030 before bedtime but his blood sugar was noted to be over 200, at around 2 AM patient had seizure-like episode blood sugar was noted to be 18 he was fed blood sugar went up to 75 and dropped down to 30 1/2 an hour later, he was fed again blood sugar 84 and decreased from 75 to 51 over another hour., EMS arrived they provided the patient with 15 g of oral glucose peanut butter and jelly sandwiches and 250 mL' s of D10, blood sugar improved and then came down again another 250 mL bolus of D10 was given. Patient fed in the emergency department again TRAVEL OUTSIDE OF THE [place].S[place] IN LAST 30 DAYS: No - HPI Onset: Just prior to arrival Onset/Duration: Sudden Quality of pain: No pain Severity: Mild Pain Level: Denies Associated symptoms: Weakness, Other Exacerbated by: Other Relieved by: Food Similar symptoms previously: Yes Recently seen / treated by doctor: Yes - Dr dolan 1 month ago possible med change - Related Data Allergies/Adverse Reactions: Sulfa (Sulfonamide Antibiotics) Allergy (Unknown, Verified 01/22/18 05:17) Unknown childhood reaction ciprofloxacin [From Cipro] Allergy (Verified 01/22/18 05:17) Vomiting Penicillins Allergy (Verified 01/22/18 05:17) Itch, rash fentanyl [Fentanyl] Adverse Reaction (Verified 01/22/18 05:17) agitation when given in conjunction with Versed midazolam HCl [From Versed] Adverse Reaction (Verified 01/22/18 05:17) agitation when given in conjunction with Fentanyl Past Medical History - Social History Smoking Status: Never Smoker Cigarette use (# per day): No Chew tobacco use (# tins/day): No Smoking Education Provided: No Family History: Reviewed & Not Pertinent - Past Medical History Cardiac Medical History: Reports: Hx Coronary Artery Disease, Hx Heart Attack - NSTEMI 10/25/14, Hx Hypercholesterolemia, Hx Hypertension Neurological Medical History: Reports: Hx Cerebrovascular Accident - x 2, 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 Denies: Hx Peritoneal Dialysis Malignancy Medical History: GI Medical History: Reports: Hx Gastroesophageal Reflux Disease. Denies: Hx Pancreatitis Musculoskeltal Medical History: Reports Hx Arthritis Psychiatric Medical History: Reports: Hx Depression Traumatic Medical History: Reports: Hx Fractures - LT hip approx 6 years ago Infectious Medical History: Past Surgical History: Reports: Hx Appendectomy, Hx Cholecystectomy, Hx Orthopedic Surgery - x2 hip replacement. - Immunizations Hx Diphtheria, Pertussis, Tetanus Vaccination: Yes Hx Pneumococcal Vaccination: 10/14/14 Review of Systems - Review of Systems Notes: REVIEW OF SYSTEMS: CONSTITUTIONAL : Denies fever, chills, or sweats. Denies recent illness. EENT: Denies eye, ear, throat, or mouth pain or symptoms. Denies nasal or sinus congestion or discharge. Denies throat, tongue, or mouth swelling or difficulty swallowing. CARDIOVASCULAR: Denies chest pain. Denies palpitations or racing or irregular heart beat. Denies ankle edema. RESPIRATORY: Denies cough, cold, or chest congestion. Denies shortness of breath, difficulty breathing, or wheezing. GASTROINTESTINAL: Denies abdominal pain or distention. Denies nausea, vomiting , or diarrhea. Denies blood in vomitus, stools, or per rectum. Denies black, tarry stools. Denies constipation. GENITOURINARY: Denies difficulty urinating, painful urination, burning, frequency, blood in urine, or discharge. MUSCULOSKELETAL: Denies back or neck pain or stiffness. Denies joint pain or swelling. SKIN: Denies rash, lesions or sores. HEMATOLOGIC : Denies easy bruising or bleeding. LYMPHATIC: Denies swollen, enlarged glands. NEUROLOGICAL: Admits to confusion seizure-like episode PSYCHIATRIC: Denies anxiety or stress. Denies depression, suicidal ideation, or homicidal ideation. ALL OTHER SYSTEMS REVIEWED AND NEGATIVE. Dictation was performed using [employer] voice recognition software PHYSICAL EXAMINATION: GENERAL: Well-appearing, well-nourished and in no acute distress. HEAD: Atraumatic, normocephalic. EYES: Pupils equal round and reactive to light, extraocular movements intact, sclera anicteric, conjunctiva are normal. ENT: Nares patent, oropharynx clear without exudates. Moist mucous membranes. NECK: Normal range of motion, supple without lymphadenopathy LUNGS: Breath sounds clear to auscultation bilaterally and equal. No wheezes rales or rhonchi. HEART: Regular rate and rhythm without murmurs ABDOMEN: Soft, nontender, nondistended abdomen. No guarding, no rebound. No masses appreciated. Musculoskeletal: Right BKA NEUROLOGICAL: Cranial nerves grossly intact. Normal speech, normal gait. Normal sensory, motor exams PSYCH: Normal mood, normal affect. SKIN: Left foot ulcer Physical Exam - Vital signs Vitals: Temp 97.6 F 01/22/18 05:20 Course - Re-evaluation Re-evalutation: 01/22/18 06:43 Patient's blood sugar had improved in the emergency department initially however on recheck it is now down to the 90s, I will continue to watch but I expect admission given how quickly it drops 01/22/18 07:44 Pts blood sugar is down ot 80s after eating 01/22/18 07:56 Still awaiting callback from Dr. Dolan - Vital Signs Vital signs: Temp Pulse Resp BP Pulse Ox 97.6 F 23 H 171/87 H 96 01/22/18 05:20 01/22/18 08:01 01/22/18 08:01 01/22/18 08:01 - Laboratory Result Diagrams: 01/22/18 05:40 01/22/18 05:40 Laboratory results interpreted by me: 01/22/18 01/22/18 01/22/18 05:27 05:40 05:40 Hgb 12.9 L BUN 23 H Creatinine 1.77 H Est GFR ( Amer) 45 L Est GFR (Non-Af Amer) 37 L Glucose 127 H POC Glucose 146 H Critical Care Note - Critical Care Note Total time excluding time spent on procedures (mins): 38 Comments: 38 minutes of critical care time spent in direct contact evaluating and reevaluating the patient, treating symptoms, reviewing labs and studies and speaking with family and consultants excluding any procedures Discharge - Discharge Clinical Impression: Hypoglycemia HTN (hypertension) Qualifiers: Hypertension type: essential hypertension Qualified Code(s): I10 - Essential ( primary) hypertension Diabetes mellitus type 2 with complications Qualifiers: Diabetes mellitus skilled nursing insulin use: with long term care pharmacist use Qualified Code(s): E11.8 - Type 2 diabetes mellitus with unspecified complications; Z79.4 - salvage determiner (current) use of insulin; Z79.4 - salvage determiner (current) use of insulin; Z79.4 - longterm (current) use of insulin; Z79.4 - salvage determiner (current) use of insulin Condition: Fair Disposition: ADMITTED INPATIENT Admitting Provider: Hospitalist Unit Admitted: [facility]
--- NOTE | 2018-01-22 07:31 | EKG REPORT ---
SEVERITY:- ABNORMAL ECG - SINUS RHYTHM LEFT BUNDLE BRANCH BLOCK : Confirmed by: Marvin Castle MD 22-Jan-2018 07:31:27
[2018-01-22] MEDS ORDERED: DEXTROSE 5%-NORMAL SALINE 1,000 ML IV ONE ×2 (07:44→08:36)
[2018-01-22] MEDS ORDERED: IPRATROPIUM/ALBUTEROL 0.5-2.5 MG/3 ML AMPUL NEB PRN (10:38)
[2018-01-22] MEDS ORDERED: ACETAMINOPHEN 325 MG TABLET PO PRN (10:38)
--- NOTE | 2018-01-22 11:06 | PDOC H&P ---
History of Present Illness Admission Date/PCP: 01/22/18 09:00 Patient complains of: Hypoglycemia History of Present Illness: NELSON BHAT is a 82 year old male history of chronic kidney disease, diabetes mellitus, on insulin. Patient lives with the . Last night the gave 25 minutes of insulin 70/30 for a sugar of about 200. Apparently he uses this insulin as needed. Overnight he had a seizure episode and blood sugar was found to be 18. In the ED patient was treated with 500 bolus of D10, given 15 g of glucose and blood sugar continue to fluctuate and currently 80. Patient was referred to hospitalist service for further evaluation and treatment. When I saw the patient he was awake, no complaints of chest pain or shortness of breath or palpitations. He denies fever or chills. He has not had cough or dysuria or polyuria. 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 Past Medical History Cardiac Medical History: Reports: Coronary Artery Disease, Myocardial Infarction - NSTEMI 10/25/14, Hyperlipidema, Hypertension Neurological Medical History: Reports: Seizures - r/t episodes of hypoglycemia only Endocrine Medical History: Reports: Diabetes Mellitus Type 2, Hypothyroidism Renal/ Medical History: Malignancy Medical History: GI Medical History: Reports: Gastroesophageal Reflux Disease Musculoskeltal Medical History: Reports: Arthritis Psychiatric Medical History: Reports: Depression Hematology: Reports: Anemia Denies: Hemophilia, Sickle Cell Disease Infectious Medical History: Past Surgical History Past Surgical History: Reports: Appendectomy, Cholecystectomy, Orthopedic Surgery - x2 hip replacement. Social History Smoking Status: Never Smoker Frequency of Alcohol Use: None Hx Recreational Drug Use: No Hx Prescription Drug Abuse: No - Advance Directive Resuscitation Status: Full Code Family History Family History: Reviewed & Not Pertinent Parental Family History Reviewed: Yes Children Family History Reviewed: Yes Sibling(s) Family History Reviewed.: Yes Medication/Allergy Home Medications: Bimatoprost [Lumigan] 1 drop OU QHS 01/22/18 Clopidogrel Bisulfate [Plavix 75 mg Tablet] 75 mg PO DAILY 01/22/18 Donepezil HCl [Aricept] 10 mg PO QHS 01/22/18 Dorzolamide HCl/Timolol Maleat [Dorzolamide-Timolol Eye Drops] 1 drop OD BID 08/31 Ergocalciferol (Vitamin D2) [Drisdol 50,000 Unit (1.25MG) Capsule] 50,000 unit PO .WEEKLY 01/22/18 Fenofibric Acid (Choline) [Trilipix] 45 mg PO DAILY 01/22/18 Finasteride [Proscar] 5 mg PO DAILY 01/22/18 Gabapentin [Neurontin 100 mg Capsule] 100 mg PO QHS 01/22/18 Insulin NPH Hum/Reg Insulin Hm [Humulin 70-30 Vial] 50 unit SQ BID 01/22/18 Levothyroxine Sodium [Synthroid] 150 mcg PO Q6AM 01/22/18 Omeprazole 20 mg PO DAILY 01/22/18 Tamsulosin HCl [Flomax] 0.4 mg PO DAILY 01/22/18 Tramadol HCl [Ultram] 50 mg PO Q12HP PRN 01/22/18 Allergies/Adverse Reactions: Sulfa (Sulfonamide Antibiotics) Allergy (Unknown, Verified 01/22/18 05:17) Unknown childhood reaction ciprofloxacin [From Cipro] Allergy (Verified 01/22/18 05:17) Vomiting Penicillins Allergy (Verified 01/22/18 05:17) Itch, rash fentanyl [Fentanyl] Adverse Reaction (Verified 01/22/18 05:17) agitation when given in conjunction with Versed midazolam HCl [From Versed] Adverse Reaction (Verified 01/22/18 05:17) agitation when given in conjunction with Fentanyl Review of Systems Review of Systems: CONSTITUTIONAL : Fever, chills -- No; unexpalined fatigue -- No EENT: Denies eye, ear, throat, or mouth pain or symptoms. Denies nasal or sinus congestion or discharge. Denies throat, tongue, or mouth swelling or difficulty swallowing. CARDIOVASCULAR: Denies chest pain. No racing heart RESPIRATORY: Denies cough, no shortness of breath, difficulty breathing. GASTROINTESTINAL: Denies abdominal pain or distention. Denies nausea, vomiting , or diarrhea. No rectal bleeding. GENITOURINARY: Urinary symptoms -- no. MUSCULOSKELETAL: No acute weakness SKIN: Denies rash, lesions or sores. HEMATOLOGIC : Denies easy bruising or bleeding. LYMPHATIC: Denies swollen, enlarged glands. NEUROLOGICAL: New weakness, headaches, slured speach - No PSYCHIATRIC: Changes anxiety or stress, depression, suicidal ideation, or homicidal ideation -- No ALL OTHER SYSTEMS REVIEWED AND NEGATIVE. Physical Exam Vital Signs: Temp Pulse Resp BP Pulse Ox 97.6 F 16 156/59 H 97 01/22/18 05:20 01/22/18 09:01 01/22/18 09:01 01/22/18 09:01 GENERAL: Well-developed, no acute distress HEENT: Normocephalic/atraumatic NECK supple, no JVD CARDIOVASCULAR: RRR, normal S1-S2 LUNGS: CTA bilaterally ABDOMEN: Soft, NT, NL bowel sounds EXTREMITIES: Status post right BKA chronic ulcer left foot without erythema or discharge, no lower extremity no edema, clubbing, cyanosis NEUROLOGICAL: Alert, oriented x 3, no acute weakness Results Laboratory Results: CBC significant for white blood cell 7.1 hemoglobin 12.9 hematocrit 39 platelets 273; Chem-7 significant for creatinine 1.77 which is stable. Assessment & Plan - Diagnosis (1) Hypoglycemia Is this a current diagnosis for this admission?: Yes Plan: Will admit to IMCU and continue D5 at 100 mL/h for now. Patient awake unable to eat, will allow regular diet for now. Will check chest x-ray and UA to rule out infectious etiology. Right foot ulcer looks good. (2) Chronic kidney disease, stage III (moderate) Is this a current diagnosis for this admission?: Yes Plan: Stable, follow-up Chem-7 in a.m. (3) Diabetes mellitus type 2 with complications Qualifiers: Diabetes mellitus residential insulin use: with keno terminal operator use Qualified Code( s): E11.8 - Type 2 diabetes mellitus with unspecified complications; Z79.4 - oysterman (current) use of insulin; Z79.4 - oysterman (current) use of insulin; Z79.4 - retirement (current) use of insulin; Z79.4 - oysterman (current) use of insulin Is this a current diagnosis for this admission?: Yes Plan: Hold insulin for now. D5 fluids as an hypoglycemia. Education of patient on for appropriate use of insulin. (5) Coronary artery disease Is this a current diagnosis for this admission?: Yes Plan: Stable. - Inpatient Certification Medical Necessity: Significant Comorbidiites Make Outpatient Treatment Too Risky , Need Close Monitoring Due to Risk of Patient Decompensation, Need For IV Fluids
[2018-01-22] MEDS ORDERED: ENOXAPARIN SODIUM INJ 30 MG/0.3 ML DISP.SYRIN SUBCUT ONE ×2 (11:30→18:30)
--- NOTE | 2018-01-22 12:15 | RADIOLOGY REPORT (SQ) ---
EXAM DESCRIPTION: CHEST SINGLE VIEW COMPLETED DATE/TIME: 01/22/2018 12:04 pm REASON FOR STUDY: Hypoglycemia COMPARISON: AP chest 08/18/2015, 08/16/2015, 07/22/2015 EXAM PARAMETERS: NUMBER OF VIEWS: One view. TECHNIQUE: Single frontal radiographic view of the chest acquired. RADIATION DOSE: NA LIMITATIONS: None. FINDINGS: LUNGS AND PLEURA: No opacities, masses or pneumothorax. No pleural effusion. MEDIASTINUM AND HILAR STRUCTURES: No masses. Contour normal. HEART AND VASCULAR STRUCTURES: Heart normal in size. Normal vasculature. BONES: Bulky osteophytes/ heterotopic bone along the coracoclavicular ligament region and undersurfac e right clavicle. This is unchanged HARDWARE: None in the chest. OTHER: No other significant finding. IMPRESSION: NO ACUTE RADIOGRAPHIC FINDING IN THE CHEST. TECHNICAL DOCUMENTATION: JOB ID: [id number] [employer]- All Rights Reserved Reading location - IP/workstation name: [email or web address]
[2018-01-22] MEDS ORDERED: DEXTROSE 5%-WATER 1000 ML 1,000 ML IV PRN (16:45)
[2018-01-22] MEDS ORDERED: DEXTROSE 50%-WATER SYRINGE 25 GM/50 ML DOSE IV PRN (20:40)
[2018-01-22] MEDS ORDERED: DEXTROSE 40% GEL 15 GM TUBE PO PRN (20:40)
[2018-01-22] MEDS ORDERED: DEXTROSE 50%-WATER SYRINGE 12.5 GM/25 ML DOSE IV PRN (20:40)
[2018-01-22] MEDS ORDERED: DEXTROSE 40% GEL 15 GM TUBE X 2 PO PRN (20:40)
[2018-01-22] MEDS ORDERED: GLUCAGON,HUMAN RECOMB 1 MG INJ IM PRN (20:40)
[2018-01-22] MEDS: INSULIN LISPRO 100 UNIT/ML 3 ML VIAL SUBCUT PRN (21:11)
[2018-01-23 05:10] LABS: ABSOLUTE BASOPHILS # (AUTO) 0.1 10^3/uL (0.0-0.2); ABSOLUTE EOSINOPHILS # (AUTO) 0.2 10^3/uL (0.0-0.6); ABSOLUTE LYMPHOCYTES (AUTO) 2.4 10^3/uL (0.5-4.7); ABSOLUTE MONOCYTES (AUTO) 0.7 10^3/uL (0.1-1.4); ABSOLUTE NEUT (AUTO) 10.8 10^3/uL (1.7-8.2); BASOPHILS % (AUTO) 0.5 % (0-2); EOSINOPHILS % (AUTO) 1.2 % (0-6); HEMATOCRIT 33.1 % (37.9-51.0); LYMPHOCYTES % (AUTO) 16.7 % (13-45); MEAN CORPUSCULAR HEMOGLOBIN 29.5 pg (27.0-33.4); MEAN CORPUSCULAR HGB CONC 33.2 g/dL (32.0-36.0); MEAN CORPUSCULAR VOLUME 89 fl (80-97); MONOCYTES % (AUTO) 5.1 % (3-13); PLATELET COUNT 218 10^3/uL (150-450); RED BLOOD COUNT 3.73 10^6/uL (4.35-5.55); RED CELL DISTRIBUTION WIDTH 13.7 % (11.5-14.0); SEGMENTED NEUTROPHILS % (AUTO) 76.5 % (42-78); TOTAL CELLS COUNTED % (AUTO) 100 %; WHITE BLOOD COUNT 14.1 10^3/uL (4.0-10.5)
[2018-01-23 05:38] LABS: ANION GAP 10 (5-19); BLOOD UREA NITROGEN 21 mg/dL (7-20); CALCIUM 9.4 mg/dL (8.4-10.2); CARBON DIOXIDE 25 mmol/L (22-30); CHLORIDE 101 mmol/L (98-107); GLUCOSE 268 mg/dL (75-110); POTASSIUM 4.5 mmol/L (3.6-5.0); SODIUM 135.9 mmol/L (137-145)
[2018-01-23 06:14] LABS: APPEARANCE,URINE SLIGHTLY-CLOUDY; BILIRUBIN,URINE NEGATIVE (NEGATIVE); COLOR,URINE YELLOW; GLUCOSE, URINE >=500 mg/dL (NEGATIVE); KETONES,URINE NEGATIVE (NEGATIVE); LEUKOCYTE ESTERASE,URINE TRACE (NEGATIVE); NITRITE,URINE NEGATIVE (NEGATIVE); PROTEIN,URINE 30 mg/dL (NEGATIVE); URINE SPECIFIC GRAVITY 1.014; UROBILINOGEN,URINE NEGATIVE mg/dL (<2.0)
[2018-01-23] MEDS: INSULIN LISPRO 100 UNIT/ML 3 ML VIAL SUBCUT PRN ×4 (08:02→21:36)
[2018-01-23] MEDS: ENOXAPARIN SODIUM INJ 30 MG/0.3 ML DISP.SYRIN SUBCUT SCH (09:29)
--- NOTE | 2018-01-23 17:35 | PDOC PROGRESS REPORT ---
Subjective Progress Note for:: 01/23/18 Subjective:: Feeling better, no recurrent seizure. No chest pain or shortness of breath or palpitations. No fever or chills. Daughter at bedside. Reason For Visit: HYPOGLYCEMIA CKD DM Physical Exam Vital Signs: Temp Pulse Resp BP Pulse Ox 98.3 F 72 18 143/62 H 99 01/23/18 16:39 01/23/18 16:39 01/23/18 16:39 01/23/18 16:39 01/23/18 16:39 Intake & Output 01/22/18 01/23/18 01/24/18 06:59 06:59 06:59 Intake Total 787 355 Output Total 1000 300 Balance -213 55 Weight 85 kg GEN: NAD, well-developed, well-nourished CV: RRR, NL S1S2 LUNGS: CTA bilaterally ABDOMEN Soft, NT, +BS EXTERMITIES: No e/c/c NEURO: Alert, oriented 3, no acute weakness Results Laboratory Results: 01/23/18 04:32 01/23/18 04:32 01/23/18 01/23/18 01/23/18 04:32 04:32 05:54 WBC 14.1 H RBC 3.73 L Hgb 11.0 L Hct 33.1 L MCV 89 MCH 29.5 MCHC 33.2 RDW 13.7 Plt Count 218 Seg Neutrophils % 76.5 Lymphocytes % 16.7 Monocytes % 5.1 Eosinophils % 1.2 Basophils % 0.5 Absolute Neutrophils 10.8 H Absolute Lymphocytes 2.4 Absolute Monocytes 0.7 Absolute Eosinophils 0.2 Absolute Basophils 0.1 Sodium 135.9 L Potassium 4.5 Chloride 101 Carbon Dioxide 25 Anion Gap 10 BUN 21 H Creatinine 1.83 H Est GFR ( Amer) 43 L Est GFR (Non-Af Amer) 36 L Glucose 268 H Calcium 9.4 Urine Color YELLOW Urine Appearance SLIGHTLY-CLOUDY Urine pH 6.0 Ur Specific [place] 1.014 Urine Protein 30 H Urine Glucose (UA) >=500 H Urine Ketones NEGATIVE Urine Blood SMALL H Urine Nitrite NEGATIVE Ur Leukocyte Esterase TRACE H Urine WBC (Auto) 10 Urine RBC (Auto) 4 Impressions: Chest X-Ray 01/22/18 10:46 IMPRESSION: NO ACUTE RADIOGRAPHIC FINDING IN THE CHEST. Assessment & Plan - Diagnosis (1) Hypoglycemia Is this a current diagnosis for this admission?: Yes (2) Chronic kidney disease, stage III (moderate) Is this a current diagnosis for this admission?: Yes (3) Diabetes mellitus type 2 with complications Qualifiers: Diabetes mellitus mcc insulin use: with mcc use Qualified Code( s): E11.8 - Type 2 diabetes mellitus with unspecified complications; Z79.4 - skilled nursing (current) use of insulin; Z79.4 - intermediate frame tender (current) use of insulin; Z79.4 - intermediate frame tender (current) use of insulin; Z79.4 - skilled nursing (current) use of insulin Is this a current diagnosis for this admission?: Yes (5) Coronary artery disease Is this a current diagnosis for this admission?: Yes - Plan Summary Plan Summary: (1) Hypoglycemia Is this a current diagnosis for this admission?: Yes Plan: Will continue to monitor. Patient is D5W. Patient remains awake and able to eat, will continue regular diet for now. -Chest x-ray negative for infection. UA with possible infection, will check urine culture. Right foot ulcer looks good. (2) Chronic kidney disease, stage III (moderate) Is this a current diagnosis for this admission?: Yes Plan: Stable, follow-up Chem-7 in a.m. 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 We will add lantus 10 Unit nightly. Continued education of patient and family on appropriate use of insulin. (5) Coronary artery disease Is this a current diagnosis for this admission?: Yes Plan: Stable.
[2018-01-23] MEDS ORDERED: INSULIN GLARGINE,HUM.REC.ANLOG 300 UNIT/3 ML INSULN.PEN SUBCUT SCH (22:00)
[2018-01-24 04:56] LABS: ABSOLUTE EOSINOPHILS # (AUTO) 0.1 10^3/uL (0.0-0.6); ABSOLUTE LYMPHOCYTES (AUTO) 2.2 10^3/uL (0.5-4.7); ABSOLUTE MONOCYTES (AUTO) 0.9 10^3/uL (0.1-1.4); BASOPHILS % (AUTO) 0.4 % (0-2); EOSINOPHILS % (AUTO) 1.3 % (0-6); HEMATOCRIT 33.6 % (37.9-51.0); HEMOGLOBIN 11.4 g/dL (13.5-17.0); LYMPHOCYTES % (AUTO) 19.8 % (13-45); MEAN CORPUSCULAR HEMOGLOBIN 29.4 pg (27.0-33.4); MEAN CORPUSCULAR HGB CONC 33.9 g/dL (32.0-36.0); MEAN CORPUSCULAR VOLUME 87 fl (80-97); MONOCYTES % (AUTO) 7.7 % (3-13); PLATELET COUNT 229 10^3/uL (150-450); RED BLOOD COUNT 3.87 10^6/uL (4.35-5.55); RED CELL DISTRIBUTION WIDTH 13.3 % (11.5-14.0); SEGMENTED NEUTROPHILS % (AUTO) 70.8 % (42-78); TOTAL CELLS COUNTED % (AUTO) 100 %; WHITE BLOOD COUNT 11.3 10^3/uL (4.0-10.5)
[2018-01-24 05:16] LABS: ANION GAP 9 (5-19); BLOOD UREA NITROGEN 22 mg/dL (7-20); CALCIUM 9.8 mg/dL (8.4-10.2); CARBON DIOXIDE 24 mmol/L (22-30); CHLORIDE 101 mmol/L (98-107); GLUCOSE 217 mg/dL (75-110); POTASSIUM 4.2 mmol/L (3.6-5.0); SODIUM 133.7 mmol/L (137-145)
[2018-01-24] MEDS: ENOXAPARIN SODIUM INJ 30 MG/0.3 ML DISP.SYRIN SUBCUT SCH (10:06)
[2018-01-24] MEDS: INSULIN LISPRO 100 UNIT/ML 3 ML VIAL SUBCUT PRN ×4 (10:06→21:48)
[2018-01-24] MEDS ORDERED: FENOFIBRIC ACID 45 MG PO SCH (11:30)
[2018-01-24] MEDS ORDERED: FINASTERIDE 5 MG TABLET PO SCH (12:00)
[2018-01-24] MEDS ORDERED: ERGOCALCIFEROL (VITAMIN D2) 50000 UNIT (1.25 MG) CAPSULE PO SCH (12:00)
[2018-01-24] MEDS ORDERED: CLOPIDOGREL BISULFATE 75 MG TABLET PO SCH (12:00)
[2018-01-24] MEDS ORDERED: TAMSULOSIN HCL 0.4 MG CAP.SR.24H PO SCH ×2 (12:00→18:00)
[2018-01-24] MEDS ORDERED: LEVOTHYROXINE SODIUM 0.15 MG TABLET PO ONE (12:00)
[2018-01-24] MEDS: TRAMADOL HCL 50 MG TABLET PO PRN ×2 (12:25→21:37)
--- NOTE | 2018-01-24 15:11 | PDOC PROGRESS REPORT ---
Subjective Progress Note for:: 01/24/18 Subjective:: Feeling better, no recurrent seizure. at bedside. states they were placed on Humulin 70/30 because they could not afford Lantus. We will check with patientspharmacy, and Levemire is $45 per month and she believes they can afford this. Patient currently on Lantus, treat for change to Levemir. No fever or chills. Reason For Visit: HYPOGLYCEMIA CKD DM Physical Exam Vital Signs: Temp Pulse Resp BP Pulse Ox 97.7 F 77 20 119/50 L 96 01/24/18 11:15 01/24/18 11:15 01/24/18 11:15 01/24/18 11:15 01/24/18 11:15 Intake & Output 01/23/18 01/24/18 01/25/18 06:59 06:59 06:59 Intake Total 787 1410 695 Output Total 1000 1050 300 Balance -213 360 395 Weight 85 kg 81.9 kg GEN: NAD, well-developed, well-nourished CV: RRR, NL S1S2 LUNGS: CTA bilaterally ABDOMEN Soft, NT, +BS EXTERMITIES: No e/c/c, s/p right BKA, chronic ulcer left foot without erythema or discharge NEURO: Alert, oriented 3, no acute weakness Results Laboratory Results: 01/24/18 04:22 01/24/18 04:22 01/24/18 01/24/18 04:22 04:22 WBC 11.3 H RBC 3.87 L Hgb 11.4 L Hct 33.6 L MCV 87 MCH 29.4 MCHC 33.9 RDW 13.3 Plt Count 229 Seg Neutrophils % 70.8 Lymphocytes % 19.8 Monocytes % 7.7 Eosinophils % 1.3 Basophils % 0.4 Absolute Neutrophils 8.0 Absolute Lymphocytes 2.2 Absolute Monocytes 0.9 Absolute Eosinophils 0.1 Absolute Basophils 0.0 Sodium 133.7 L Potassium 4.2 Chloride 101 Carbon Dioxide 24 Anion Gap 9 BUN 22 H Creatinine 1.83 H Est GFR ( Amer) 43 L Est GFR (Non-Af Amer) 36 L Glucose 217 H Calcium 9.8 Impressions: Chest X-Ray 01/22/18 10:46 IMPRESSION: NO ACUTE RADIOGRAPHIC FINDING IN THE CHEST. Assessment & Plan - Plan Summary Plan Summary: (1) Hypoglycemia Is this a current diagnosis for this admission?: Yes Plan: Will continue to monitor. Patient remains D5W. Patient remains awake and able to eat, will continue diet. -Chest x-ray negative for infection. UA with possible infection, no growth to date on urine culture. Right foot ulcer looks good. (2) Chronic kidney disease, stage III (moderate) Is this a current diagnosis for this admission?: Yes Plan: Stable, follow-up Chem-7 in a.m. (3) Diabetes mellitus type 2 with complications Qualifiers: Diabetes mellitus grocery team member insulin use: with grocery team member use Qualified Code( s): E11.8 - Type 2 diabetes mellitus with unspecified complications; Z79.4 - [facility] (current) use of insulin; Z79.4 - [facility] (current) use of insulin; Z79.4 - [facility] (current) use of insulin; Z79.4 - [facility] (current) use of insulin Is this a current diagnosis for this admission?: Yes Plan: On sliding scale insulin. We will change lantus 10 Unit nightly to Levemir and will increase to 15 unit nightly due to hyperglucemia. Continued education of patient and family on appropriate use of insulin. (5) Coronary artery disease Is this a current diagnosis for this admission?: Yes Plan: Stable.
[2018-01-24] MEDS: DORZOLAMIDE HCL 2%/TIMOLOL MALEAT 0.5% OPH SOLN 10 ML OD SCH (18:38)
[2018-01-24] MEDS ORDERED: INSULIN DETEMIR 100 UNIT/ML 3 ML PEN SUBCUT SCH (22:00)
[2018-01-24] MEDS ORDERED: DONEPEZIL HCL 5 MG TABLET PO SCH (22:00)
[2018-01-24] MEDS ORDERED: BIMATOPROST 0.01% OPH SOLN 2.5 ML/BOTTLE OU SCH (22:00)
[2018-01-24] MEDS ORDERED: (PENDING PHARMACY ID) (Donepezil Hcl [Aricept] 10 MG) PO SCH (22:00)
[2018-01-24] MEDS ORDERED: GABAPENTIN 100 MG CAPSULE PO SCH (22:00)
[2018-01-25 05:10] LABS: ABSOLUTE BASOPHILS # (AUTO) 0.1 10^3/uL (0.0-0.2); ABSOLUTE EOSINOPHILS # (AUTO) 0.2 10^3/uL (0.0-0.6); ABSOLUTE LYMPHOCYTES (AUTO) 2.4 10^3/uL (0.5-4.7); ABSOLUTE MONOCYTES (AUTO) 0.7 10^3/uL (0.1-1.4); ABSOLUTE NEUT (AUTO) 7.4 10^3/uL (1.7-8.2); BASOPHILS % (AUTO) 0.6 % (0-2); EOSINOPHILS % (AUTO) 1.7 % (0-6); HEMATOCRIT 34.6 % (37.9-51.0); HEMOGLOBIN 11.7 g/dL (13.5-17.0); LYMPHOCYTES % (AUTO) 22.1 % (13-45); MEAN CORPUSCULAR HEMOGLOBIN 29.6 pg (27.0-33.4); MEAN CORPUSCULAR HGB CONC 33.9 g/dL (32.0-36.0); MEAN CORPUSCULAR VOLUME 88 fl (80-97); MONOCYTES % (AUTO) 6.6 % (3-13); PLATELET COUNT 244 10^3/uL (150-450); RED BLOOD COUNT 3.96 10^6/uL (4.35-5.55); RED CELL DISTRIBUTION WIDTH 13.6 % (11.5-14.0); TOTAL CELLS COUNTED % (AUTO) 100 %; WHITE BLOOD COUNT 10.7 10^3/uL (4.0-10.5)
[2018-01-25 05:28] LABS: ANION GAP 11 (5-19); BLOOD UREA NITROGEN 32 mg/dL (7-20); CALCIUM 10.1 mg/dL (8.4-10.2); CARBON DIOXIDE 25 mmol/L (22-30); CHLORIDE 99 mmol/L (98-107); GLUCOSE 289 mg/dL (75-110); POTASSIUM 4.6 mmol/L (3.6-5.0); SODIUM 135.2 mmol/L (137-145)
[2018-01-25] MEDS ORDERED: LANSOPRAZOLE 15 MG TAB.RAP.DR PO SCH (06:00)
[2018-01-25] MEDS ORDERED: LEVOTHYROXINE SODIUM 0.15 MG TABLET PO SCH (06:00)
[2018-01-25] MEDS: DORZOLAMIDE HCL 2%/TIMOLOL MALEAT 0.5% OPH SOLN 10 ML OD SCH (09:41)
[2018-01-25] MEDS: ENOXAPARIN SODIUM INJ 30 MG/0.3 ML DISP.SYRIN SUBCUT SCH (09:42)
[2018-01-25] MEDS: INSULIN LISPRO 100 UNIT/ML 3 ML VIAL SUBCUT PRN (09:47)
[2018-01-25] MEDS ORDERED: FENOFIBRATE NANOCRYSTALLIZED 48 MG TABLET PO SCH (10:00)
[2018-01-25 10:32] VITALS: BP 156/44
--- NOTE | 2018-01-25 14:15 | PDOC DISCHARGE SUMMARY ---
General - Admit/Disc Date/PCP Admission Date/Primary Care Provider: 01/22/18 09:00 Discharge Date: 01/25/18 - Additional Information Resuscitation Status: Full Code Discharge Diet: Diabetic Discharge Activity: Activity As Tolerated Prescriptions: Insulin Detemir [Levemir Insulin 100 units/mL] 20 unit SUBCUT QHS 30 Days insuln.pen Insulin Lispro [Humalog Insulin (Lispro) 100 unit/mL] 0 - 12 unit SUBCUT ACHSP PRN 30 Days unit PRN Reason: Home Medications: Bimatoprost [Lumigan] 1 drop OU QHS 01/22/18 Clopidogrel Bisulfate [Plavix 75 mg Tablet] 75 mg PO DAILY 01/22/18 Donepezil HCl [Aricept] 10 mg PO QHS 01/22/18 Dorzolamide HCl/Timolol Maleat [Dorzolamide-Timolol Eye Drops] 1 drop OD BID 08/31 Ergocalciferol (Vitamin D2) [Drisdol 50,000 unit (1.25MG) Capsule] 50,000 unit PO .WEEKLY 01/22/18 Fenofibric Acid (Choline) [Trilipix] 45 mg PO DAILY 01/22/18 Finasteride [Proscar] 5 mg PO DAILY 01/22/18 Gabapentin [Neurontin 100 mg Capsule] 100 mg PO QHS 01/22/18 Levothyroxine Sodium [Synthroid] 150 mcg PO Q6AM 01/22/18 Omeprazole 20 mg PO DAILY 01/22/18 Tamsulosin HCl [Flomax] 0.4 mg PO DAILY 01/22/18 Tramadol HCl [Ultram] 50 mg PO Q12HP PRN 01/22/18 Insulin Detemir [Levemir Insulin 100 units/mL] 20 unit SUBCUT QHS 30 Days insuln.pen 01/25/18 Insulin Lispro [Humalog Insulin (Lispro) 100 unit/mL] 0 - 12 unit SUBCUT ACHSP PRN 30 Days unit 01/25/18 History of Present Illness History of Present Illness: Patient presented as in HPI below: "NELSON BHAT is a 82 year old male history of chronic kidney disease, diabetes mellitus, on insulin. Patient lives with the . Last night the gave 25 minutes of insulin 70/30 for a sugar of about 200. Apparently he uses this insulin as needed. Overnight he had a seizure episode and blood sugar was found to be 18. In the ED patient was treated with 500 bolus of D10, given 15 g of glucose and blood sugar continue to fluctuate and currently 80. Patient was referred to hospitalist service for further evaluation and treatment. When I saw the patient he was awake, no complaints of chest pain or shortness of breath or palpitations. He denies fever or chills. He has not had cough or dysuria or polyuria. 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" Hospital Course Hospital Course: (1) Hypoglycemia Is this a current diagnosis for this admission?: Yes Plan: Patient was treated with D5W IV fluid. He remained awake and able to eat. His blood sugars has improved and he has since been restarted on insulin and doing well. -Chest x-ray was negative for infection. UA with possible infection, no growth on urine culture, so UTI is ruled out. He has chronic right foot ulcer which looks good, he follows up with wound clinic. (2) Chronic kidney disease, stage III (moderate) Is this a current diagnosis for this admission?: Yes Plan: Stable. 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 We checked with patient's pharmacy, and Levemire was $45 per month. believes they can afford this. Patient started on Levemir and he is tolerating. He is currently on 50 mg nightly, with sliding scale of Humalog. Patient was educated on appropriate use and dosing off insulin. (5) Coronary artery disease Is this a current diagnosis for this admission?: Yes Plan: Stable. Physical Exam Vital Signs: Temp Pulse Resp BP Pulse Ox 98.2 F 63 16 156/44 H 96 01/25/18 10:29 01/25/18 10:29 01/25/18 10:29 01/25/18 10:29 01/25/18 10:29 Intake & Output 01/24/18 01/25/18 01/26/18 06:59 06:59 06:59 Intake Total 1410 1294 118 Output Total 1050 1750 Balance 360 -456 118 Weight 81.9 kg 79.7 kg GEN: NAD, well-developed, well-nourished CV: RRR, NL S1S2 LUNGS: CTA bilaterally ABDOMEN Soft, NT, +BS EXTERMITIES: No e/c/c, s/p right BKA, chronic ulcer left foot without erythema or discharge NEURO: Alert, oriented 3, no acute weakness Results Laboratory Results: 01/25/18 04:39 01/25/18 04:39 01/25/18 01/25/18 04:39 04:39 WBC 10.7 H RBC 3.96 L Hgb 11.7 L Hct 34.6 L MCV 88 MCH 29.6 MCHC 33.9 RDW 13.6 Plt Count 244 Seg Neutrophils % 69.0 Lymphocytes % 22.1 Monocytes % 6.6 Eosinophils % 1.7 Basophils % 0.6 Absolute Neutrophils 7.4 Absolute Lymphocytes 2.4 Absolute Monocytes 0.7 Absolute Eosinophils 0.2 Absolute Basophils 0.1 Sodium 135.2 L Potassium 4.6 Chloride 99 Carbon Dioxide 25 Anion Gap 11 BUN 32 H Creatinine 1.89 H Est GFR ( Amer) 42 L Est GFR (Non-Af Amer) 34 L Glucose 289 H Calcium 10.1 Impressions: Chest X-Ray 01/22/18 10:46 IMPRESSION: NO ACUTE RADIOGRAPHIC FINDING IN THE CHEST. Qualifiers - * PATEINT BEING DISCHARGED WITH ANY OF THE FOLLOWING DIAGNOSIS?: No Plan Time Spent: Greater than 30 Minutes
== END 2018-01-25 12:48 | disposition home health service (06) | DRG 639 ==
LOC: ER 05:13 → EH 09:00 → 3W 15:17
PROVIDERS: ADMIT Family Medicine; ATTEND Family Medicine
DX: E11.649 Type 2 diabetes mellitus with hypoglycemia without coma (principal); E11.22 Type 2 diabetes mellitus with diabetic chronic kidney disease; E11.621 Type 2 diabetes mellitus with foot ulcer; L97.529 Non-pressure chronic ulcer of other part of left foot with unspecified severity; I12.9 Hypertensive chronic kidney disease with stage 1 through stage 4 chronic kidney disease, or unspecified chronic kidney disease; N18.3 Chronic kidney disease, stage 3 (moderate); E03.9 Hypothyroidism, unspecified; I25.10 Atherosclerotic heart disease of native coronary artery without angina pectoris; E78.00 Pure hypercholesterolemia, unspecified; I25.2 Old myocardial infarction; Z89.511 Acquired absence of right leg below knee; Z86.73 Personal history of transient ischemic attack (TIA), and cerebral infarction without residual deficits; Z79.01 Long term (current) use of anticoagulants; Z79.4 Long term (current) use of insulin; Z79.899 Other long term (current) drug therapy
CPT/HCPCS: 36415; 71045; 80048; 81001; 82962; 83036; 85025; 87086; 87088; 93005; 93010; 96361; 96374; 99291; J1650; J1815; J2405; J3490

== ENCOUNTER 2018-02-07 01:25 | Emergency (ER) | payer MEDICARE ==
[2018-02-07] MEDS ORDERED: NORMAL SALINE 1000 ML 1,000 ML IV ONE (01:54)
--- NOTE | 2018-02-07 02:00 | ER Document Report ---
ED Blood Sugar Problem - General Chief Complaint: High Blood Sugar Stated Complaint: BLOOD SUGAR PROBLEM Time Seen by Provider: 02/07/18 01:35 Notes: Patient is an 82 year old male that comes to the ED for chief complaint of elevated blood sugar. He states that he took his sugar tonight it was reading high, he took his 20 units of Levemir and then rechecked later and was still reading high, after this he became concerned and called EMS. He states he has felt slightly weak today but denies any chest pain, shortness of breath, dizziness, nausea or vomiting, abdominal pain, or any other complaints. He states he feels fine at this time. Past medical history of insulin-dependent diabetes, right BKA, chronic left diabetic foot ulcer, [place]. He lives at home with his family. TRAVEL OUTSIDE OF THE [place] IN LAST 30 DAYS: No - Related Data Allergies/Adverse Reactions: Sulfa (Sulfonamide Antibiotics) Allergy (Unknown, Verified 01/22/18 05:17) Unknown childhood reaction ciprofloxacin [From Cipro] Allergy (Verified 01/22/18 05:17) Vomiting Penicillins Allergy (Verified 01/22/18 05:17) Itch, rash fentanyl [Fentanyl] Adverse Reaction (Verified 01/22/18 05:17) agitation when given in conjunction with Versed midazolam HCl [From Versed] Adverse Reaction (Verified 01/22/18 05:17) agitation when given in conjunction with Fentanyl Past Medical History - General Information source: Patient - Social History Smoking Status: Former Smoker Frequency of alcohol use: None Drug Abuse: None Lives with: Family Family History: Reviewed & Not Pertinent - Past Medical History Cardiac Medical History: Reports: Hx Coronary Artery Disease, Hx Heart Attack - NSTEMI 10/25/14, Hx Hypercholesterolemia, Hx Hypertension Neurological Medical History: Reports: Hx Cerebrovascular Accident - x 2, 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 Denies: Hx Peritoneal Dialysis Malignancy Medical History: GI Medical History: Reports: Hx Gastroesophageal Reflux Disease. Denies: Hx Pancreatitis Musculoskeltal Medical History: Reports Hx Arthritis Psychiatric Medical History: Reports: Hx Depression Traumatic Medical History: Reports: Hx Fractures - LT hip approx 6 years ago Infectious Medical History: Past Surgical History: Reports: Hx Appendectomy, Hx Cholecystectomy, Hx Orthopedic Surgery - x2 hip replacement. - Immunizations Hx Diphtheria, Pertussis, Tetanus Vaccination: Yes Hx Pneumococcal Vaccination: 10/14/14 Review of Systems - Review of Systems Constitutional: See HPI EENT: No symptoms reported Cardiovascular: No symptoms reported Respiratory: No symptoms reported Gastrointestinal: No symptoms reported Genitourinary: No symptoms reported Male Genitourinary: No symptoms reported Musculoskeletal: No symptoms reported Skin: No symptoms reported Hematologic/Lymphatic: No symptoms reported Neurological/Psychological: No symptoms reported Physical Exam - Vital signs Vitals: Temp Resp BP Pulse Ox 98.2 F 16 106/59 L 99 02/07/18 02:07 02/07/18 02:07 02/07/18 02:07 02/07/18 02:07 - General General appearance: Appears well In distress: None - HEENT Head: Normocephalic, Atraumatic Eyes: Normal Extraocular movements intact: Yes Eyelashes: Normal Pupils: PERRL Mouth/Lips: Normal Mucous membranes: Normal Pharynx: Normal Neck: Normal - Respiratory Respiratory status: No respiratory distress Breath sounds: Normal. No: Decreased air movement, Wheezing - Cardiovascular Rhythm: Regular Heart sounds: Normal auscultation, S1 appreciated, S2 appreciated - Abdominal Inspection: Normal Tenderness: Nontender. No: Tender, Guarding - Back Back: Normal, Nontender. No: Tender - Extremities General upper extremity: Normal inspection, Nontender, Normal ROM, Normal strength General lower extremity: Other - Right BKA, left foot ulcer noted as well, area has only minimal erythema, no foul smell, no tenderness, no discolored discharge , no spreading cellulitis, unremarkable lower extremity exam otherwise - Neurological Neuro grossly intact: Yes Cognition: Normal Orientation: AAOx4 Ivan Coma Scale Eye Opening: Spontaneous Ivan Coma Scale Verbal: Oriented Puposky Coma Scale Motor: Obeys Commands Puposky Coma Scale Total: 15 Speech: Normal Cranial nerves: Normal Cerebellar coordination: Normal Motor strength normal: LUE, RUE, LLE, RLE Additional motor exam normals: Equal gun number Sensory: Normal - Skin Skin Temperature: Warm Skin Moisture: Dry Skin Color: Normal Course - Re-evaluation Re-evalutation: Patient well-appearing, alert, soft abdomen, clear lungs, unremarkable vital signs. Patient oriented and is not confused, normal neurological exam. Fajardo unremarkable on exam, left foot ulcer does not appear to be infected. CBC unremarkable, chemistry shows hyperglycemia with no acidosis, venous blood gas unremarkable, urinalysis consistent with urinary tract infection. Culture placed. Medicated, give IV fluids, blood sugar was down trended, patient started on antibiotics for urinary tract infection. Because patient has unremarkable vital signs, is not acidotic, is oriented, does not have a fever, and is very well-appearing discussed home treatment, follow-up, and return precautions. Patient is very satisfied with this, states he would like to go home, states he understands follow-up and return precautions. - Vital Signs Vital signs: Temp Pulse Resp BP Pulse Ox 98.4 F 14 115/59 L 97 02/07/18 05:13 02/07/18 06:01 02/07/18 06:00 02/07/18 06:01 - Laboratory Result Diagrams: 02/07/18 01:08 02/07/18 01:08 Laboratory results interpreted by me: 02/07/18 02/07/18 02/07/18 01:08 01:08 03:05 RBC 4.18 L Hgb 12.5 L BUN 38 H Creatinine 2.36 H Est GFR ( Amer) 32 L Est GFR (Non-Af Amer) 27 L Glucose 591 H* POC Glucose ALT 12 L Urine Glucose (UA) >=500 H Urine Blood MODERATE H Ur Leukocyte Esterase MODERATE H 02/07/18 02/07/18 02/07/18 03:59 05:01 06:05 RBC Hgb BUN Creatinine Est GFR ( Amer) Est GFR (Non-Af Amer) Glucose POC Glucose 396 H 343 H 239 H ALT Urine Glucose (UA) Urine Blood Ur Leukocyte Esterase Discharge - Discharge Clinical Impression: Hyperglycemia, Weakness Urinary tract infection Qualifiers: Urinary tract infection type: site unspecified Hematuria presence: without hematuria Qualified Code(s): N39.0 - Urinary tract infection, site not specified Condition: Stable Disposition: HOME, SELF-CARE Additional Instructions: Your workup shows elevated blood sugar but does not show an additional concerning finding with your blood chemistries. You also have a urinary tract infection, this could be why your blood sugars have been elevating. Take Keflex antibiotic as prescribed, follow-up with your primary care provider within the next 2-3 days, return if you worsen including vomiting, fever, abdominal pain, confusion, or any other concerning or worsening symptoms. Prescriptions: Cephalexin Monohydrate [Keflex 500 mg Capsule] 500 mg PO BID #14 capsule Referrals: BAYLEE FERNANDEZ MD [Primary Care Provider] - Follow up as needed
[2018-02-07 02:08] LABS: ABSOLUTE MONOCYTES (AUTO) 0.4 10^3/uL (0.1-1.4); ABSOLUTE NEUT (AUTO) 5.4 10^3/uL (1.7-8.2); BASOPHILS % (AUTO) 0.6 % (0-2); EOSINOPHILS % (AUTO) 0.6 % (0-6); HEMATOCRIT 37.9 % (37.9-51.0); HEMOGLOBIN 12.5 g/dL (13.5-17.0); LYMPHOCYTES % (AUTO) 25.2 % (13-45); MEAN CORPUSCULAR VOLUME 91 fl (80-97); MONOCYTES % (AUTO) 5.1 % (3-13); PLATELET COUNT 241 10^3/uL (150-450); RED BLOOD COUNT 4.18 10^6/uL (4.35-5.55); RED CELL DISTRIBUTION WIDTH 13.5 % (11.5-14.0); SEGMENTED NEUTROPHILS % (AUTO) 68.5 % (42-78); TOTAL CELLS COUNTED % (AUTO) 100 %; WHITE BLOOD COUNT 7.9 10^3/uL (4.0-10.5)
[2018-02-07 02:13] LABS: ALANINE AMINOTRANSFERASE 12 U/L (21-72); ALBUMIN 4.1 g/dL (3.5-5.0); ALKALINE PHOSPHATASE 86 U/L (38-126); ANION GAP 12 (5-19); ASPARTATE AMINO TRANSFERASE 25 U/L (17-59); BILIRUBIN,DIRECT 0.3 mg/dL (0.0-0.4); BILIRUBIN,TOTAL 0.3 mg/dL (0.2-1.3); BLOOD UREA NITROGEN 38 mg/dL (7-20); CALCIUM 9.8 mg/dL (8.4-10.2); CARBON DIOXIDE 28 mmol/L (22-30); CHLORIDE 99 mmol/L (98-107); POTASSIUM 4.8 mmol/L (3.6-5.0); SODIUM 139.4 mmol/L (137-145); TOTAL PROTEIN 7.7 g/dL (6.3-8.2)
[2018-02-07 02:27] LABS: GLUCOSE 591 mg/dL (75-110)
[2018-02-07 02:42] LABS: VENOUS BLOOD BASE EXCESS -4.1 mmol/L; VENOUS BLOOD HCO3 20.8 mmol/L (20-32); VENOUS BLOOD PCO2 37.6 mmHg (35-63); VENOUS BLOOD PH 7.36 (7.30-7.42)
[2018-02-07] MEDS ORDERED: INSULIN REG, HUMAN 100 UNIT/ML 3 ML VIAL (PYX) SUBCUT ONE (03:26)
[2018-02-07 03:36] LABS: APPEARANCE,URINE SLIGHTLY-CLOUDY; BILIRUBIN,URINE NEGATIVE (NEGATIVE); COLOR,URINE YELLOW; GLUCOSE, URINE >=500 mg/dL (NEGATIVE); KETONES,URINE NEGATIVE (NEGATIVE); LEUKOCYTE ESTERASE,URINE MODERATE (NEGATIVE); NITRITE,URINE NEGATIVE (NEGATIVE); PROTEIN,URINE NEGATIVE (NEGATIVE); URINE SPECIFIC GRAVITY 1.022; UROBILINOGEN,URINE NEGATIVE mg/dL (<2.0)
[2018-02-07] MEDS ORDERED: CEPHALEXIN 500 MG CAPSULE PO ONE (03:44)
[2018-02-07 08:45] VITALS: BP 113/56
== END 2018-02-07 08:51 | disposition home or self-care (01) ==
LOC: ER 01:25
DX: E11.65 Type 2 diabetes mellitus with hyperglycemia (principal); R53.1 Weakness; N39.0 Urinary tract infection, site not specified; Z88.2 Allergy status to sulfonamides; Z88.0 Allergy status to penicillin; Z88.3 Allergy status to other anti-infective agents; Z89.511 Acquired absence of right leg below knee; I25.2 Old myocardial infarction; Z79.4 Long term (current) use of insulin; Z90.49 Acquired absence of other specified parts of digestive tract; Z96.643 Presence of artificial hip joint, bilateral
CPT/HCPCS: 99285; 96360; 36415; 87086; 82962; 85025; 87088; 80053; 81001; 82803; A9270 ×2; J7030; J1815

== ENCOUNTER → 2018-02-14 | Outpatient (CLI) | payer MEDICARE ==
[2018-02-14 14:37] LABS: AMORPHOUS SEDIMENT,URINE TRACE /HPF; APPEARANCE,URINE SLIGHTLY-CLOUDY; BILIRUBIN,URINE NEGATIVE (NEGATIVE); COLOR,URINE YELLOW; GLUCOSE, URINE NEGATIVE (NEGATIVE); KETONES,URINE NEGATIVE (NEGATIVE); LEUKOCYTE ESTERASE,URINE MODERATE (NEGATIVE); NITRITE,URINE NEGATIVE (NEGATIVE); PROTEIN,URINE 30 mg/dL (NEGATIVE); URINE SPECIFIC GRAVITY 1.014; UROBILINOGEN,URINE NEGATIVE mg/dL (<2.0)
== END ==
LOC: PNR 11:39
PROVIDERS: ATTEND Family Medicine
DX: N39.0 Urinary tract infection, site not specified (principal)
CPT/HCPCS: 81001; 87086; 87088

== ENCOUNTER 2018-04-18 18:35 | Inpatient (IN) | payer MEDICARE ==
[2018-04-18] MEDS ORDERED: RINGERS SOLUTION,LACTATED 1,000 ML IV ONE (20:00)
--- NOTE | 2018-04-18 20:02 | ER Document Report ---
ED General - General Chief Complaint: General Weakness Stated Complaint: WEAKNESS Time Seen by Provider: 04/18/18 18:44 Notes: Patient is an 83-year-old male with a past medical history of hypertension, hyperlipidemia, uia-myoxlem-fznkzgqqn diabetes, dementia, presents with his family with concerns of 4-5 days of progressively worsening confusion as well as refusal to get out of the bed. The patient apparently has stated repeatedly that he wants to be left alone so that he can . Family states that this is quite atypical for him and they are concerned that there is something wrong. He has not seen his general doctor regarding today's concerns. Nothing has been noted to improve or worsen his symptoms since onset. The patient himself is quite confused, denies any acute complaints. History is otherwise limited secondary to the patient's dementia and confusion. TRAVEL OUTSIDE OF THE [place] IN LAST 30 DAYS: No - Related Data Allergies/Adverse Reactions: Sulfa (Sulfonamide Antibiotics) Allergy (Unknown, Verified 04/06/18 11:46) Unknown childhood reaction ciprofloxacin [From Cipro] Allergy (Verified 04/06/18 11:46) Vomiting Penicillins Allergy (Verified 04/06/18 11:46) Itch, rash fentanyl [Fentanyl] Adverse Reaction (Verified 04/06/18 11:46) agitation when given in conjunction with Versed midazolam HCl [From Versed] Adverse Reaction (Verified 04/06/18 11:46) agitation when given in conjunction with Fentanyl Past Medical History - General Information source: Relative - Social History Smoking Status: Never Smoker Frequency of alcohol use: None Drug Abuse: None Lives with: Family Family History: Reviewed & Not Pertinent Patient has suicidal ideation: No Patient has homicidal ideation: No - Past Medical History Cardiac Medical History: Reports: Hx Coronary Artery Disease, Hx Heart Attack - NSTEMI 10/25/14, Hx Hypercholesterolemia, Hx Hypertension Neurological Medical History: Reports: Hx Cerebrovascular Accident - x 2, 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 Denies: Hx Peritoneal Dialysis Malignancy Medical History: GI Medical History: Reports: Hx Gastroesophageal Reflux Disease. Denies: Hx Pancreatitis Musculoskeltal Medical History: Reports Hx Arthritis Psychiatric Medical History: Reports: Hx Depression Traumatic Medical History: Reports: Hx Fractures - LT hip approx 6 years ago Infectious Medical History: Past Surgical History: Reports: Hx Appendectomy, Hx Cholecystectomy, Hx Orthopedic Surgery - x2 hip replacement. - Immunizations Hx Diphtheria, Pertussis, Tetanus Vaccination: Yes Hx Pneumococcal Vaccination: 10/14/14 Review of Systems - Review of Systems -: Yes ROS unobtainable due to patient's medical condition Physical Exam - Vital signs Vitals: Temp Pulse BP Pulse Ox 98.7 F 77 117/60 97 04/18/18 18:38 04/18/18 18:38 04/18/18 18:38 04/18/18 18:38 Interpretation: Normal Notes: PHYSICAL EXAMINATION: GENERAL: Frail, somewhat lethargic but responds to verbal stimuli after multiple attempts HEAD: Atraumatic, normocephalic. EYES: Pupils equal round and reactive to light, extraocular movements intact, sclera anicteric, conjunctiva are normal. ENT: nares patent, oropharynx clear without exudates. Dry mucous membranes. NECK: Normal range of motion, supple without lymphadenopathy LUNGS: Breath sounds clear to auscultation bilaterally and equal. No wheezes rales or rhonchi. HEART: Regular rate and rhythm without murmurs ABDOMEN: Soft, nontender, normoactive bowel sounds. No guarding, no rebound. No masses appreciated. EXTREMITIES: no pitting or edema. No cyanosis. NEUROLOGICAL: No focal neurological deficits. Moves all extremities spontaneously and on command. PSYCH: Lethargic, oriented only to person SKIN: Warm, Dry, normal turgor, no rashes or lesions noted. Course - Re-evaluation Re-evalutation: 04/18/18 20:00 Patient presents with failure to thrive, refusing to get out of bed, eat or drink for the past 4 days. The patient himself is profoundly demented, oriented only to person and family at the bedside but does not know year, month or location which family states he is not generally his baseline mental status. The patient appears lethargic, somewhat cachectic, obviously frail. Examination is notable for a chronic wound to the left great toe as well as a chronic heel ulcer to the left heel neither of which appear to be overtly infected. The remainder of the exam is notable for very dry oral mucosa, lethargy in speaking, and disorientation. The patient does carry a diagnosis of dementia and is on donepezil. Considerations include an occult infection that could be causing his rapid deterioration versus rapid progression of his baseline dementia. I have discussed the family, we are in agreement with proceeding with basic laboratories, IV fluids and reassessment. 04/18/18 22:42 Laboratories do show findings consistent with acute pyelonephritis. Patient has been treated with IV ceftriaxone and IV fluids. Family has noted some improvement in his alertness although no he continues to be profoundly confused. I have discussed with the hospitalist Dr. Jason Santiago who has accepted the patient for admission. - Vital Signs Vital signs: Temp Pulse Resp BP Pulse Ox 98.8 F 78 20 142/59 H 98 04/19/18 03:40 04/19/18 03:40 04/19/18 03:40 04/19/18 03:40 04/19/18 03:40 - Laboratory Result Diagrams: 04/19/18 03:25 04/19/18 03:25 Laboratory results interpreted by me: 04/18/18 04/18/18 04/18/18 21:16 21:16 21:45 WBC 11.5 H RBC 4.14 L Hgb 12.7 L Hct 37.4 L Absolute Neutrophils 8.8 H BUN 34 H Creatinine 1.98 H Est GFR ( Amer) 39 L Est GFR (Non-Af Amer) 33 L Glucose 177 H Direct Bilirubin 0.5 H Urine Protein 30 H Urine Glucose (UA) 50 H Urine Blood SMALL H Urine Nitrite POSITIVE H Ur Leukocyte Esterase LARGE H - Diagnostic Test Radiology reviewed: Image reviewed, Reports reviewed Radiology results interpreted by me: 04/19/18 04:36 Chest x-ray: No acute infiltrate or pneumothorax Discharge - Discharge Clinical Impression: Pyelonephritis Altered mental status Qualifiers: Altered mental status type: delirium Qualified Code(s): R41.0 - Disorientation , unspecified Condition: Fair Disposition: ADMITTED INPATIENT Admitting Provider: Hospitalist Unit Admitted: Medical Floor
--- NOTE | 2018-04-18 20:48 | RADIOLOGY REPORT (SQ) ---
EXAM DESCRIPTION: CHEST SINGLE VIEW COMPLETED DATE/TIME: 04/18/2018 8:29 pm REASON FOR STUDY: ams, cough COMPARISON: 01/22/2018 EXAM PARAMETERS: NUMBER OF VIEWS: One view. TECHNIQUE: Single frontal radiographic view of the chest acquired. RADIATION DOSE: NA LIMITATIONS: None. FINDINGS: LUNGS AND PLEURA: No acute opacities, masses or pneumothorax. No pleural effusion. MEDIASTINUM AND HILAR STRUCTURES: No masses. Contour normal. HEART AND VASCULAR STRUCTURES: Heart normal in size. Normal vasculature. BONES: No acute findings. HARDWARE: None in the chest. OTHER: No other significant finding. IMPRESSION: NO ACUTE RADIOGRAPHIC FINDING IN THE CHEST. TECHNICAL DOCUMENTATION: JOB ID: [id number] [place]-72 2010 [employer]- All Rights Reserved Reading location - IP/workstation name: [facility]
[2018-04-18 21:30] LABS: ABSOLUTE BASOPHILS # (AUTO) 0.1 10^3/uL (0.0-0.2); ABSOLUTE EOSINOPHILS # (AUTO) 0.2 10^3/uL (0.0-0.6); ABSOLUTE LYMPHOCYTES (AUTO) 1.8 10^3/uL (0.5-4.7); ABSOLUTE MONOCYTES (AUTO) 0.6 10^3/uL (0.1-1.4); ABSOLUTE NEUT (AUTO) 8.8 10^3/uL (1.7-8.2); BASOPHILS % (AUTO) 0.5 % (0-2); EOSINOPHILS % (AUTO) 1.7 % (0-6); HEMATOCRIT 37.4 % (37.9-51.0); HEMOGLOBIN 12.7 g/dL (13.5-17.0); LYMPHOCYTES % (AUTO) 15.8 % (13-45); MEAN CORPUSCULAR HEMOGLOBIN 30.8 pg (27.0-33.4); MEAN CORPUSCULAR VOLUME 90 fl (80-97); MONOCYTES % (AUTO) 5.5 % (3-13); PLATELET COUNT 264 10^3/uL (150-450); RED BLOOD COUNT 4.14 10^6/uL (4.35-5.55); RED CELL DISTRIBUTION WIDTH 13.8 % (11.5-14.0); SEGMENTED NEUTROPHILS % (AUTO) 76.5 % (42-78); TOTAL CELLS COUNTED % (AUTO) 100 %; WHITE BLOOD COUNT 11.5 10^3/uL (4.0-10.5)
[2018-04-18 21:48] LABS: ALANINE AMINOTRANSFERASE 24 U/L (21-72); ALBUMIN 3.8 g/dL (3.5-5.0); ALKALINE PHOSPHATASE 66 U/L (38-126); ANION GAP 11 (5-19); ASPARTATE AMINO TRANSFERASE 28 U/L (17-59); BILIRUBIN,DIRECT 0.5 mg/dL (0.0-0.4); BLOOD UREA NITROGEN 34 mg/dL (7-20); CALCIUM 10.2 mg/dL (8.4-10.2); CARBON DIOXIDE 25 mmol/L (22-30); CHLORIDE 106 mmol/L (98-107); CREATINE KINASE 65 U/L (55-170); GLUCOSE 177 mg/dL (75-110); POTASSIUM 4.7 mmol/L (3.6-5.0); TOTAL PROTEIN 7.3 g/dL (6.3-8.2)
[2018-04-18 22:10] LABS: APPEARANCE,URINE CLOUDY; BILIRUBIN,URINE NEGATIVE (NEGATIVE); COLOR,URINE YELLOW; GLUCOSE, URINE 50 mg/dL (NEGATIVE); KETONES,URINE NEGATIVE (NEGATIVE); LEUKOCYTE ESTERASE,URINE LARGE (NEGATIVE); NITRITE,URINE POSITIVE (NEGATIVE); PROTEIN,URINE 30 mg/dL (NEGATIVE); URINE SPECIFIC GRAVITY 1.017; UROBILINOGEN,URINE NEGATIVE mg/dL (<2.0)
[2018-04-18 22:14] LABS: VENOUS BLOOD BASE EXCESS -1.3 mmol/L; VENOUS BLOOD HCO3 24.4 mmol/L (20-32); VENOUS BLOOD PCO2 45.2 mmHg (35-63); VENOUS BLOOD PH 7.35 (7.30-7.42)
[2018-04-18] MEDS ORDERED: CEFTRIAXONE INJ 1000 MG VIAL IV ONE (22:41)
[2018-04-18] MEDS ORDERED: MAG HYDROX/AL HYDROX/SIMETH SUSP 30 ML UDCUP PO PRN (22:45)
[2018-04-18] MEDS ORDERED: LACTULOSE SYRUP 20 GM/30 ML UDCUP PO ONE (22:45)
[2018-04-18] MEDS ORDERED: IPRATROPIUM/ALBUTEROL 0.5-2.5 MG/3 ML AMPUL NEB PRN (22:45)
[2018-04-18 23:29] LABS: PHOSPHORUS 3.3 mg/dL (2.5-4.5)
[2018-04-19] MEDS: 1/2 NORMAL SALINE 1,000 ML IV SCH ×2 (01:36→08:45)
[2018-04-19 03:34] LABS: ABSOLUTE BASOPHILS # (AUTO) 0.1 10^3/uL (0.0-0.2); ABSOLUTE EOSINOPHILS # (AUTO) 0.1 10^3/uL (0.0-0.6); ABSOLUTE LYMPHOCYTES (AUTO) 1.6 10^3/uL (0.5-4.7); ABSOLUTE MONOCYTES (AUTO) 0.5 10^3/uL (0.1-1.4); ABSOLUTE NEUT (AUTO) 7.4 10^3/uL (1.7-8.2); BASOPHILS % (AUTO) 0.9 % (0-2); EOSINOPHILS % (AUTO) 1.2 % (0-6); HEMATOCRIT 35.3 % (37.9-51.0); HEMOGLOBIN 12.1 g/dL (13.5-17.0); LYMPHOCYTES % (AUTO) 16.4 % (13-45); MEAN CORPUSCULAR HEMOGLOBIN 30.9 pg (27.0-33.4); MEAN CORPUSCULAR HGB CONC 34.1 g/dL (32.0-36.0); MEAN CORPUSCULAR VOLUME 91 fl (80-97); MONOCYTES % (AUTO) 5.2 % (3-13); PLATELET COUNT 227 10^3/uL (150-450); SEGMENTED NEUTROPHILS % (AUTO) 76.3 % (42-78); TOTAL CELLS COUNTED % (AUTO) 100 %; WHITE BLOOD COUNT 9.7 10^3/uL (4.0-10.5)
[2018-04-19 03:52] LABS: ANION GAP 13 (5-19); BLOOD UREA NITROGEN 30 mg/dL (7-20); CALCIUM 9.8 mg/dL (8.4-10.2); CARBON DIOXIDE 24 mmol/L (22-30); CHLORIDE 104 mmol/L (98-107); CREATINE KINASE 68 U/L (55-170); GLUCOSE 328 mg/dL (75-110); POTASSIUM 4.6 mmol/L (3.6-5.0); SODIUM 141.4 mmol/L (137-145)
[2018-04-19 04:04] LABS: CREATINE KINASE MB 1.6 ng/mL (<4.55); TROPONIN I 0.026 ng/mL
--- NOTE | 2018-04-19 06:38 | PDOC H&P ---
History of Present Illness Admission Date/PCP: 04/18/18 22:49 SABRINA NASH DO Patient complains of: Weakness History of Present Illness: NELSON BHAT is a 83 year old male with a past medical history of diabetes, stage III chronic kidney disease, hypertension, peripheral vascular disease, right AKA, chronic left foot ulcer, dementia with delirium. Patient recently returned from residential to the home setting within the week where he has refused p.o. intake and become generally weak. His elderly and frail has been unable to meet his care needs in an independent setting. He is brought to the emergency room for evaluation. He is found to have leukocytosis, urinary tract infection and referred to the hospitalist for admission. Past Medical History Cardiac Medical History: Reports: Coronary Artery Disease, Myocardial Infarction - NSTEMI 10/25/14, Hyperlipidema, Hypertension Neurological Medical History: Reports: Seizures - r/t episodes of hypoglycemia only Endocrine Medical History: Reports: Diabetes Mellitus Type 2, Hypothyroidism Renal/ Medical History: Reports: Chronic Kidney Disease Malignancy Medical History: GI Medical History: Reports: Gastroesophageal Reflux Disease Musculoskeltal Medical History: Reports: Arthritis Psychiatric Medical History: Reports: Depression Hematology: Reports: Anemia Denies: Hemophilia, Sickle Cell Disease Infectious Medical History: Past Surgical History Past Surgical History: Reports: Appendectomy, Cholecystectomy, Orthopedic Surgery - x2 hip replacement. Social History Information Source: POA - Power of [employer], Emergency Med Personnel, [facility] Records Lives with: Family Smoking Status: Never Smoker Frequency of Alcohol Use: None Hx Recreational Drug Use: No Drugs: None Hx Prescription Drug Abuse: No - Advance Directive Resuscitation Status: Full Code Family History Family History: Other - Patient unable to recall Parental Family History Reviewed: No - Patient unable to recall Children Family History Reviewed: No - Unable to recall Sibling(s) Family History Reviewed.: No - Unable to recall Medication/Allergy Home Medications: Bimatoprost [Lumigan] 1 drop OU QHS 01/22/18 Clopidogrel Bisulfate [Plavix 75 mg Tablet] 75 mg PO DAILY 01/22/18 Donepezil HCl [Aricept] 10 mg PO QHS 01/22/18 Dorzolamide HCl/Timolol Maleat [Dorzolamide-Timolol Eye Drops] 1 drop OD BID 08/31 Ergocalciferol (Vitamin D2) [Drisdol 50,000 unit (1.25MG) Capsule] 50,000 unit PO .WEEKLY 01/22/18 Fenofibric Acid (Choline) [Trilipix] 45 mg PO DAILY 01/22/18 Finasteride [Proscar] 5 mg PO DAILY 01/22/18 Gabapentin [Neurontin 100 mg Capsule] 100 mg PO QHS 01/22/18 Levothyroxine Sodium [Synthroid] 150 mcg PO Q6AM 01/22/18 Omeprazole 20 mg PO DAILY 01/22/18 Tamsulosin HCl [Flomax] 0.4 mg PO DAILY 01/22/18 Tramadol HCl [Ultram] 50 mg PO Q12HP PRN 01/22/18 Insulin Detemir [Levemir Insulin 100 units/mL] 20 unit SUBCUT QHS 30 Days insuln.pen 01/25/18 Insulin Lispro [Humalog Insulin (Lispro) 100 unit/mL] 0 - 12 unit SUBCUT ACHSP PRN 30 Days unit 01/25/18 Cephalexin Monohydrate [Keflex 500 mg Capsule] 500 mg PO BID #14 capsule Cephalexin Monohydrate [Keflex 500 mg Capsule] 500 mg PO Q6H 7 Days #28 capsule 04/06/18 Ondansetron [Zofran Odt 4 mg Tablet] 4 mg PO Q4HP PRN #12 tab.rapdis 04/06/18 Allergies/Adverse Reactions: Sulfa (Sulfonamide Antibiotics) Allergy (Unknown, Verified 04/06/18 11:46) Unknown childhood reaction ciprofloxacin [From Cipro] Allergy (Verified 04/06/18 11:46) Vomiting Penicillins Allergy (Verified 04/06/18 11:46) Itch, rash fentanyl [Fentanyl] Adverse Reaction (Verified 04/06/18 11:46) agitation when given in conjunction with Versed midazolam HCl [From Versed] Adverse Reaction (Verified 04/06/18 11:46) agitation when given in conjunction with Fentanyl Review of Systems ROS unobtainable: Due to mental status - Dementia Physical Exam Vital Signs: Temp Pulse Resp BP Pulse Ox 98.8 F 78 20 142/59 H 98 04/19/18 03:40 04/19/18 03:40 04/19/18 03:40 04/19/18 03:40 04/19/18 03:40 Intake & Output 07/02/2804/18/18 04/19/18 11:59 11:59 11:59 Weight 71.9 kg General appearance: PRESENT: cooperative, mild distress. ABSENT: obese, severe distress Head exam: PRESENT: atraumatic, normocephalic Eye exam: PRESENT: conjunctiva pink, EOMI, PERRLA. ABSENT: scleral icterus Ear exam: PRESENT: normal external ear exam Mouth exam: PRESENT: dry mucosa, tongue midline Neck exam: ABSENT: carotid bruit, JVD, lymphadenopathy, thyromegaly Respiratory exam: PRESENT: clear to auscultation casey. ABSENT: rales, rhonchi, wheezes Cardiovascular exam: PRESENT: RRR. ABSENT: diastolic murmur, rubs, systolic murmur Pulses: PRESENT: normal dorsalis pedis pul Vascular exam: PRESENT: normal capillary refill GI/Abdominal exam: PRESENT: normal bowel sounds, soft. ABSENT: distended, guarding, mass, organolmegaly, rebound, tenderness Rectal exam: PRESENT: deferred Extremities exam: PRESENT: full ROM, pedal edema, tenderness, +1 edema. ABSENT : clubbing Musculoskeletal exam: ABSENT: ambulatory, deformity, dislocation Neurological exam: PRESENT: alert, altered, awake, oriented to person, CN II- XII grossly intact. ABSENT: oriented to place Psychiatric exam: PRESENT: flat affect. ABSENT: agitated Skin exam: PRESENT: pallor, warm. ABSENT: jaundice, normal color, petechiae Results Laboratory Results: 04/19/18 03:25 04/19/18 03:25 04/19/18 04/19/18 03:25 03:25 WBC 9.7 RBC 3.90 L Hgb 12.1 L Hct 35.3 L MCV 91 MCH 30.9 MCHC 34.1 RDW 14.0 Plt Count 227 Seg Neutrophils % 76.3 Lymphocytes % 16.4 Monocytes % 5.2 Eosinophils % 1.2 Basophils % 0.9 Absolute Neutrophils 7.4 Absolute Lymphocytes 1.6 Absolute Monocytes 0.5 Absolute Eosinophils 0.1 Absolute Basophils 0.1 Sodium 141.4 Potassium 4.6 Chloride 104 Carbon Dioxide 24 Anion Gap 13 BUN 30 H Creatinine 1.97 H Est GFR ( Amer) 40 L Est GFR (Non-Af Amer) 33 L Glucose 328 H Calcium 9.8 04/19/18 04/19/18 03:25 03:25 Creatine Kinase 68 CK-MB (CK-2) 1.60 Troponin I 0.026 Impressions: Chest X-Ray 04/18/18 19:59 IMPRESSION: NO ACUTE RADIOGRAPHIC FINDING IN THE CHEST. Assessment & Plan - Diagnosis (1) Pyelonephritis Is this a current diagnosis for this admission?: Yes Plan: Empiric antibiotics, follow-up CBC and urine culture (2) Altered mental status Qualifiers: Altered mental status type: delirium Qualified Code(s): R41.0 - Disorientation, unspecified Is this a current diagnosis for this admission?: Yes Plan: Dementia with exacerbation likely secondary to infection. Supportive care, severe debility will likely require residential placement. (3) Chronic kidney disease, stage III (moderate) Is this a current diagnosis for this admission?: Yes Plan: At baseline avoid nephrotoxic meds and doses - Time Time Spent: 50 to 70 Minutes - Inpatient Certification Medical Necessity: Need Close Monitoring Due to Risk of Patient Decompensation
[2018-04-19] MEDS: HEPARIN SOD (PORCINE) 5,000 UNIT/ML 1 ML SYRINGE SUBCUT SCH ×3 (08:28→21:43)
[2018-04-19] MEDS: CLOPIDOGREL BISULFATE 75 MG TABLET PO SCH (08:46)
[2018-04-19] MEDS: TAMSULOSIN HCL 0.4 MG CAP.SR.24H PO SCH (08:47)
[2018-04-19] MEDS: DOCUSATE SODIUM 100 MG CAPSULE PO SCH ×2 (08:47→18:03)
[2018-04-19] MEDS: FINASTERIDE 5 MG TABLET PO SCH (08:47)
[2018-04-19 10:18] LABS: CREATINE KINASE MB 1.77 ng/mL (<4.55); TROPONIN I 0.029 ng/mL
[2018-04-19] MEDS: ACETAMINOPHEN 325 MG TABLET PO PRN (12:42)
[2018-04-19] MEDS ORDERED: GLUCAGON,HUMAN RECOMB 1 MG INJ IM PRN (12:58)
[2018-04-19] MEDS ORDERED: DEXTROSE 40% GEL 15 GM TUBE PO PRN ×2 (12:58)
[2018-04-19] MEDS ORDERED: DEXTROSE 50%-WATER 25 GM/50 ML DISP.SYRIN IV PRN ×2 (12:58)
[2018-04-19 16:45] LABS: TROPONIN I 0.029 ng/mL
[2018-04-19] MEDS ORDERED: INSULIN LISPRO 100 UNIT/ML 3 ML VIAL SUBCUT ONE (17:20)
[2018-04-19] MEDS ORDERED: NORMAL SALINE 1000 ML 1,000 ML IV PRN (17:22)
--- NOTE | 2018-04-19 17:26 | PDOC PROGRESS REPORT ---
Subjective Progress Note for:: 04/19/18 Subjective:: The patient is a 83-year-old male with past medical history of diabetes, stage III chronic kidney disease, hypertension, peripheral vascular disease, right AKA , chronic left foot ulcer, dementia with delirium who was admitted overnight 04/18 for pyelonephritis. The patient is seen on morning rounds. He is found resting in bed comfortably on room air having just completed his breakfast. He is alert and oriented to person, place, situation and the year 2015, but does reorient quickly. He confirms that he has had increased fatigue, generalized weakness, loss of interest in normal habits, and poor appetite. He denies SI/HI, but does confirm that he has had some "trouble with depression over the last couple of years" and is agreeable to trial of antidepressant. He denies fever, chills, chest pain, palpitations, dyspnea, abdominal pain, nausea vomiting diarrhea. The patient reports that he has an indwelling catheter and is prone to frequent urinary tract infections. He denies supra pubic tenderness, flank pain, dysuria, hematuria. He has no questions or concerns at this time. Reason For Visit: ARF, UTI ENCEPHALOPATHY Physical Exam Vital Signs: Temp Pulse Resp BP Pulse Ox 98.4 F 89 16 116/75 98 04/19/18 15:22 04/19/18 15:38 04/19/18 15:38 04/19/18 15:22 04/19/18 15:38 Intake & Output 04/18/18 04/19/18 04/20/18 06:59 06:59 06:59 Intake Total 450 Output Total 800 Balance -350 Weight 71.9 kg General appearance: PRESENT: no acute distress, cooperative, well-developed, well-nourished Head exam: PRESENT: atraumatic, normocephalic Eye exam: PRESENT: conjunctiva pink, EOMI, PERRLA. ABSENT: scleral icterus Ear exam: PRESENT: normal external ear exam Mouth exam: PRESENT: moist, tongue midline Neck exam: ABSENT: carotid bruit, JVD, lymphadenopathy, thyromegaly Respiratory exam: PRESENT: clear to auscultation casey, symmetrical, unlabored. ABSENT: rales, rhonchi, wheezes Cardiovascular exam: PRESENT: RRR, +S1, +S2. ABSENT: diastolic murmur, rubs, systolic murmur Pulses: PRESENT: normal dorsalis pedis pul Vascular exam: PRESENT: normal capillary refill GI/Abdominal exam: PRESENT: normal bowel sounds, soft. ABSENT: distended, guarding, mass, organolmegaly, rebound, tenderness Rectal exam: PRESENT: deferred Extremities exam: PRESENT: full ROM. ABSENT: calf tenderness, clubbing, pedal edema Neurological exam: PRESENT: alert, awake, oriented to person, oriented to place , oriented to situation, CN II-XII grossly intact. ABSENT: oriented to time, motor sensory deficit Psychiatric exam: PRESENT: appropriate affect, normal mood. ABSENT: homicidal ideation, suicidal ideation Skin exam: PRESENT: dry, intact, warm. ABSENT: cyanosis, rash Results Laboratory Results: 04/19/18 03:25 04/19/18 03:25 04/19/18 04/19/18 03:25 03:25 WBC 9.7 RBC 3.90 L Hgb 12.1 L Hct 35.3 L MCV 91 MCH 30.9 MCHC 34.1 RDW 14.0 Plt Count 227 Seg Neutrophils % 76.3 Lymphocytes % 16.4 Monocytes % 5.2 Eosinophils % 1.2 Basophils % 0.9 Absolute Neutrophils 7.4 Absolute Lymphocytes 1.6 Absolute Monocytes 0.5 Absolute Eosinophils 0.1 Absolute Basophils 0.1 Sodium 141.4 Potassium 4.6 Chloride 104 Carbon Dioxide 24 Anion Gap 13 BUN 30 H Creatinine 1.97 H Est GFR ( Amer) 40 L Est GFR (Non-Af Amer) 33 L Glucose 328 H Calcium 9.8 04/19/18 04/19/18 04/19/18 03:25 03:25 09:17 Creatine Kinase 68 61 CK-MB (CK-2) 1.60 Troponin I 0.026 04/19/18 04/19/18 04/19/18 09:17 15:15 15:15 Creatine Kinase 79 CK-MB (CK-2) 1.77 2.00 Troponin I 0.029 0.029 Impressions: Chest X-Ray 04/18/18 19:59 IMPRESSION: NO ACUTE RADIOGRAPHIC FINDING IN THE CHEST. Assessment & Plan - Diagnosis (1) Pyelonephritis Is this a current diagnosis for this admission?: Yes Plan: Urinalysis revealed blood, nitrites, leukoesterase, WBCs, and bacteria. Preliminary urinary culture demonstrates gram-negative rods. Urinary culture is pending. The patient is placed on Rocephin. He is provided IV fluids. Fajardo catheter is replaced. (2) Altered mental status Qualifiers: Altered mental status type: delirium Qualified Code(s): R41.0 - Disorientation, unspecified Is this a current diagnosis for this admission?: Yes Plan: Resolved; patient appears to be at baseline. Secondary to acute infection, dehydration, and dementia. The patient was provided empiric antibiotics and IV fluids as above. Providing supportive care and for patient safety. Resume the patient's home dosed Aricept. (3) Urinary retention Is this a current diagnosis for this admission?: Yes Plan: Patient with chronic Fajardo catheter; states that has been greater than a month since the catheter has been exchanged. Scant bleeding noted at urethra. Fajardo catheter exchanged today. Continuing his home dose Proscar and tamsulosin. Monitor urinary output. (4) Diabetes mellitus Qualifiers: Diabetes mellitus type: type 2 Diabetes mellitus custodial insulin use: with custodial use Diabetes mellitus complication status: with kidney complications Diabetes mellitus complication detail: with chronic kidney disease Chronic kidney disease stage: stage 3 (moderate) Qualified Code(s): E11.22 - Type 2 diabetes mellitus with diabetic chronic kidney disease; N18.3 - Chronic kidney disease, stage 3 (moderate); N18.3 - Chronic kidney disease, stage 3 (moderate); N18.3 - Chronic kidney disease, stage 3 (moderate); Z79.4 - terminal operations manager (current) use of insulin; Z79.4 - jail (current) use of insulin; Z79.4 - jail (current) use of insulin; Z79.4 - terminal operations manager (current) use of insulin Is this a current diagnosis for this admission?: Yes Plan: The patient is placed on a consistent carb diet. Accu-Cheks before meals and at bedtime with Humalog for sliding scale coverage. Continue the patient's home dose to 70/30. (5) Depression Qualifiers: Depression Type: unspecified Qualified Code(s): F32.9 - Major depressive disorder, single episode, unspecified Is this a current diagnosis for this admission?: Yes Plan: Patient endorses several years of depression; evidenced by loss of interest in habits and social functions, decreased appetite, poor sleep, and ambivalence toward health and end of life. Patient denies SI/HI, but does state that he "welcomes the end when it comes knocking." He is agreeable to trial of antidepressant. We will start the patient on low-dose Remeron; may help with depression, sleep, and poor appetite. Consider psych consultation. (6) Chronic kidney disease, stage III (moderate) Is this a current diagnosis for this admission?: Yes Plan: Gentle IV fluids. Encourage p.o. fluids. Avoid nephrotoxic medications. (7) DNR (do not resuscitate) Is this a current diagnosis for this admission?: Yes Plan: The patient confirms that he is a DNR. - Time Time Spent with patient: 25-34 minutes Medications reviewed and adjusted accordingly: Yes Anticipated discharge: SNF - Probable long-term placement. Within: within 48 hours - Inpatient Certification Based on my medical assessment, after consideration of the patient's comorbidities, presenting symptoms, or acuity I expect that the services needed warrant INPATIENT care.: Yes I certify that my determination is in accordance with my understanding of Medicare's requirements for reasonable and necessary INPATIENT services [42 CFR 412.3e].: Yes Medical Necessity: Need For IV Fluids, Need for IV Antibiotics
[2018-04-19] MEDS: HUM INSULIN NPH/REG INSULIN HM 100 UNIT/1 ML 3 ML SUBCUT SCH (21:43)
[2018-04-19] MEDS: GABAPENTIN 100 MG CAPSULE PO SCH (21:44)
[2018-04-19] MEDS: DONEPEZIL HCL 5 MG TABLET PO SCH (21:45)
[2018-04-19] MEDS: MIRTAZAPINE 15 MG TABLET PO SCH (21:45)
[2018-04-19] MEDS: TRAMADOL HCL 50 MG TABLET PO SCH (21:45)
[2018-04-19] MEDS ORDERED: CEFTRIAXONE INJ 1000 MG VIAL ONE (21:50)
[2018-04-19] MEDS ORDERED: CEFTRIAXONE 1 GM/D5W RTU 1 GM/50 ML RTUPB IV SCH (22:00)
[2018-04-19] MEDS ORDERED: (PENDING PHARMACY ID) (Donepezil Hcl [Aricept] 10 MG) PO SCH (22:00)
[2018-04-20] MEDS: LEVOTHYROXINE SODIUM 0.15 MG TABLET PO SCH (06:02)
[2018-04-20] MEDS: HEPARIN SOD (PORCINE) 5,000 UNIT/ML 1 ML SYRINGE SUBCUT SCH ×3 (06:02→21:48)
[2018-04-20 06:43] LABS: HEMATOCRIT 31.4 % (37.9-51.0); HEMOGLOBIN 10.9 g/dL (13.5-17.0); MEAN CORPUSCULAR HEMOGLOBIN 30.9 pg (27.0-33.4); MEAN CORPUSCULAR HGB CONC 34.7 g/dL (32.0-36.0); MEAN CORPUSCULAR VOLUME 89 fl (80-97); PLATELET COUNT 212 10^3/uL (150-450); RED BLOOD COUNT 3.53 10^6/uL (4.35-5.55); RED CELL DISTRIBUTION WIDTH 13.3 % (11.5-14.0); WHITE BLOOD COUNT 8.1 10^3/uL (4.0-10.5)
[2018-04-20 07:10] LABS: ANION GAP 10 (5-19); BLOOD UREA NITROGEN 23 mg/dL (7-20); CALCIUM 9.5 mg/dL (8.4-10.2); CARBON DIOXIDE 25 mmol/L (22-30); CHLORIDE 108 mmol/L (98-107); GLUCOSE 41 mg/dL (75-110); POTASSIUM 4.3 mmol/L (3.6-5.0); SODIUM 143.2 mmol/L (137-145)
[2018-04-20 08:15] LABS: ABSOLUTE RETICS # 0.036 10^6/uL (0.028-0.122); RETICULOCYTE COUNT (AUTO) 1.03 % (0.66-2.85)
[2018-04-20 08:34] LABS: IRON(TIBC) 16.9 ug/dL (49-181)
[2018-04-20 09:42] LABS: FOLATE 9.62 ng/mL (>2.76)
[2018-04-20] MEDS: TRAMADOL HCL 50 MG TABLET PO SCH ×2 (09:54→21:48)
[2018-04-20] MEDS: FINASTERIDE 5 MG TABLET PO SCH (09:54)
[2018-04-20] MEDS: DOCUSATE SODIUM 100 MG CAPSULE PO SCH ×2 (09:54→17:03)
[2018-04-20] MEDS: FENOFIBRATE NANOCRYSTALLIZED 48 MG TABLET PO SCH (09:54)
[2018-04-20] MEDS: CLOPIDOGREL BISULFATE 75 MG TABLET PO SCH (09:54)
[2018-04-20] MEDS: TAMSULOSIN HCL 0.4 MG CAP.SR.24H PO SCH (09:54)
[2018-04-20] MEDS ORDERED: FENOFIBRIC ACID 45 MG PO SCH (10:00)
[2018-04-20] MEDS: HUM INSULIN NPH/REG INSULIN HM 100 UNIT/1 ML 3 ML SUBCUT SCH ×2 (10:34→22:38)
--- NOTE | 2018-04-20 15:10 | PDOC PROGRESS REPORT ---
Subjective Progress Note for:: 04/20/18 Subjective:: The patient is a 83-year-old male with past medical history of diabetes, stage III chronic kidney disease, hypertension, peripheral vascular disease, right AKA , chronic left foot ulcer, dementia with delirium who was admitted overnight 04/18 for pyelonephritis. The patient is seen on morning rounds. He is found resting in bed comfortably on room air. He is alert and oriented x4 today. He reports that he slept well overnight and had a good appetite this morning; completed 100% of his breakfast. He denies fever, chills, chest pain, palpitations, dyspnea, abdominal pain, nausea vomiting diarrhea. He denies supra pubic tenderness, flank pain, dysuria , hematuria. He has no questions or concerns at this time. No concerns per nursing. Reason For Visit: ARF, UTI ENCEPHALOPATHY Physical Exam Vital Signs: Temp Pulse Resp BP Pulse Ox 98.8 F 68 18 152/54 H 98 04/20/18 12:00 04/20/18 12:00 04/20/18 12:00 04/20/18 12:00 04/20/18 12:00 Intake & Output 04/19/18 04/20/18 04/21/18 06:59 06:59 06:59 Intake Total 4296 Output Total 1625 Balance 2671 Weight 71.9 kg 75.8 kg General appearance: PRESENT: no acute distress, cooperative, well-developed, well-nourished Head exam: PRESENT: atraumatic, normocephalic Eye exam: PRESENT: conjunctiva pink, EOMI, PERRLA. ABSENT: scleral icterus Ear exam: PRESENT: normal external ear exam Mouth exam: PRESENT: moist, tongue midline Neck exam: ABSENT: carotid bruit, JVD, lymphadenopathy, thyromegaly Respiratory exam: PRESENT: clear to auscultation casey, symmetrical, unlabored. ABSENT: rales, rhonchi, wheezes Cardiovascular exam: PRESENT: RRR, +S1, +S2. ABSENT: diastolic murmur, rubs, systolic murmur Pulses: PRESENT: normal dorsalis pedis pul Vascular exam: PRESENT: normal capillary refill GI/Abdominal exam: PRESENT: normal bowel sounds, soft. ABSENT: distended, guarding, mass, organolmegaly, rebound, tenderness Rectal exam: PRESENT: deferred Extremities exam: PRESENT: full ROM, other - Right AKA. ABSENT: calf tenderness , clubbing, pedal edema Neurological exam: PRESENT: alert, awake, oriented to person, oriented to place , oriented to time, oriented to situation, CN II-XII grossly intact. ABSENT: motor sensory deficit Psychiatric exam: PRESENT: appropriate affect, normal mood. ABSENT: homicidal ideation, suicidal ideation Skin exam: PRESENT: dry, warm, other - Chronic left foot wound, toenail previously removed from left great toe. Left toe is slightly edematous. No erythema or drainage present.. ABSENT: cyanosis, rash Results Laboratory Results: 04/20/18 05:38 04/20/18 05:38 04/20/18 04/20/18 04/20/18 05:38 05:38 05:38 WBC 8.1 RBC 3.53 L Hgb 10.9 L Hct 31.4 L MCV 89 MCH 30.9 MCHC 34.7 RDW 13.3 Plt Count 212 Retic Count (auto) 1.03 Absolute Retic 0.036 Sodium 143.2 Potassium 4.3 Chloride 108 H Carbon Dioxide 25 Anion Gap 10 BUN 23 H Creatinine 1.49 H Est GFR ( Amer) 55 L Est GFR (Non-Af Amer) 45 L Glucose 41 L Calcium 9.5 Iron TIBC % Saturation Ferritin Vitamin B12 Folate 04/20/18 05:38 WBC RBC Hgb Hct MCV MCH MCHC RDW Plt Count Retic Count (auto) Absolute Retic Sodium Potassium Chloride Carbon Dioxide Anion Gap BUN Creatinine Est GFR ( Amer) Est GFR (Non-Af Amer) Glucose Calcium Iron 16.9 L TIBC 222 L % Saturation 8 Ferritin 240.00 Vitamin B12 633.0 Folate 9.62 04/19/18 04/19/18 04/19/18 03:25 03:25 09:17 Creatine Kinase 68 61 CK-MB (CK-2) 1.60 Troponin I 0.026 04/19/18 04/19/18 04/19/18 09:17 15:15 15:15 Creatine Kinase 79 CK-MB (CK-2) 1.77 2.00 Troponin I 0.029 0.029 Impressions: Chest X-Ray 04/18/18 19:59 IMPRESSION: NO ACUTE RADIOGRAPHIC FINDING IN THE CHEST. Assessment & Plan - Diagnosis (1) Pyelonephritis Is this a current diagnosis for this admission?: Yes Plan: Improved; leukocytosis has resolved, patient is afebrile, good appetite, mental status returned to baseline. Urinalysis revealed blood, nitrites, leukoesterase, WBCs, and bacteria. Preliminary urinary culture demonstrates gram-negative rods. Continue Rocephin. He is provided IV fluids. Fajrado catheter is replaced yesterday. (2) Altered mental status Qualifiers: Altered mental status type: delirium Qualified Code(s): R41.0 - Disorientation, unspecified Is this a current diagnosis for this admission?: Yes Plan: Resolved; patient appears to be at baseline. Secondary to acute infection, dehydration, and dementia. The patient was provided empiric antibiotics and IV fluids as above. Providing supportive care and for patient safety. Continue the patient's home dosed Aricept. (3) Urinary retention Is this a current diagnosis for this admission?: Yes Plan: Patient with chronic Fajardo catheter; states that has been greater than a month since the catheter has been exchanged. Scant bleeding noted at urethra prior to exchange. Fajardo catheter exchanged yesterday. Continuing his home dose Proscar and tamsulosin. Continues to have good urinary output. (4) Diabetes mellitus Qualifiers: Diabetes mellitus type: type 2 Diabetes mellitus penitentiary insulin use: with penitentiary use Diabetes mellitus complication status: with kidney complications Diabetes mellitus complication detail: with chronic kidney disease Chronic kidney disease stage: stage 3 (moderate) Qualified Code(s): E11.22 - Type 2 diabetes mellitus with diabetic chronic kidney disease; N18.3 - Chronic kidney disease, stage 3 (moderate); N18.3 - Chronic kidney disease, stage 3 (moderate); N18.3 - Chronic kidney disease, stage 3 (moderate); Z79.4 - director long term care (current) use of insulin; Z79.4 - alf (current) use of insulin; Z79.4 - alf (current) use of insulin; Z79.4 - director long term care (current) use of insulin Is this a current diagnosis for this admission?: Yes Plan: The patient was hyperglycemic in the 300s during the day yesterday followed by a hypoglycemic event overnight; 41 at 530 this morning. The patient is placed on a consistent carb diet; encourage bedtime snack. Accu-Cheks before meals and at bedtime with Humalog for sliding scale coverage. Continue the patient's home dose to 70/30; may require dose reduction if the patient continues to have hypoglycemia. (5) Depression Qualifiers: Depression Type: unspecified Qualified Code(s): F32.9 - Major depressive disorder, single episode, unspecified Is this a current diagnosis for this admission?: Yes Plan: Patient endorses several years of depression; evidenced by loss of interest in habits and social functions, decreased appetite, poor sleep, and ambivalence toward health and end of life. Patient denies SI/HI, but does state that he "welcomes the end when it comes knocking." He is agreeable to trial of antidepressant. Started on low-dose Remeron; may help with depression, sleep, and poor appetite. Consider psych consultation. (6) Chronic kidney disease, stage III (moderate) Is this a current diagnosis for this admission?: Yes Plan: Improved; creatinine at baseline (1.49) with BUN of 23 today. Gentle IV fluids. Encourage p.o. fluids. Avoid nephrotoxic medications. (7) DNR (do not resuscitate) Is this a current diagnosis for this admission?: Yes Plan: The patient confirms that he is a DNR. - Time Time Spent with patient: 15-24 minutes Medications reviewed and adjusted accordingly: Yes Anticipated discharge: SNF Within: within 48 hours
[2018-04-20] MEDS: FERROUS SULFATE 325 MG TABLET PO SCH (17:02)
[2018-04-20] MEDS: INSULIN LISPRO 100 UNIT/ML 3 ML VIAL SUBCUT PRN (17:02)
[2018-04-20] MEDS: CEFTRIAXONE SODIUM 1,000 MG in DEXTROSE 5%-WATER 50 ML IV SCH (21:47)
[2018-04-20] MEDS: MIRTAZAPINE 15 MG TABLET PO SCH (21:48)
[2018-04-20] MEDS: DONEPEZIL HCL 5 MG TABLET PO SCH (21:48)
[2018-04-20] MEDS: GABAPENTIN 100 MG CAPSULE PO SCH (21:48)
[2018-04-21 05:20] LABS: HEMATOCRIT 32.2 % (37.9-51.0); HEMOGLOBIN 11.3 g/dL (13.5-17.0); MEAN CORPUSCULAR HEMOGLOBIN 31.1 pg (27.0-33.4); MEAN CORPUSCULAR VOLUME 89 fl (80-97); PLATELET COUNT 196 10^3/uL (150-450); RED BLOOD COUNT 3.63 10^6/uL (4.35-5.55); RED CELL DISTRIBUTION WIDTH 13.6 % (11.5-14.0); WHITE BLOOD COUNT 7.9 10^3/uL (4.0-10.5)
[2018-04-21 06:00] LABS: ANION GAP 12 (5-19); BLOOD UREA NITROGEN 15 mg/dL (7-20); CALCIUM 9.1 mg/dL (8.4-10.2); CARBON DIOXIDE 23 mmol/L (22-30); CHLORIDE 104 mmol/L (98-107); GLUCOSE 346 mg/dL (75-110); POTASSIUM 4.5 mmol/L (3.6-5.0); SODIUM 138.7 mmol/L (137-145)
[2018-04-21] MEDS: HEPARIN SOD (PORCINE) 5,000 UNIT/ML 1 ML SYRINGE SUBCUT SCH ×2 (06:32→14:21)
[2018-04-21] MEDS: INSULIN LISPRO 100 UNIT/ML 3 ML VIAL SUBCUT PRN ×2 (07:01→11:41)
[2018-04-21] MEDS: LEVOTHYROXINE SODIUM 0.15 MG TABLET PO SCH (07:01)
[2018-04-21] MEDS: TRAMADOL HCL 50 MG TABLET PO SCH (10:04)
[2018-04-21] MEDS: CLOPIDOGREL BISULFATE 75 MG TABLET PO SCH (10:04)
[2018-04-21] MEDS: DOCUSATE SODIUM 100 MG CAPSULE PO SCH ×2 (10:04→17:09)
[2018-04-21] MEDS: FERROUS SULFATE 325 MG TABLET PO SCH ×2 (10:04→17:09)
[2018-04-21] MEDS: HUM INSULIN NPH/REG INSULIN HM 100 UNIT/1 ML 3 ML SUBCUT SCH (10:04)
[2018-04-21] MEDS: FENOFIBRATE NANOCRYSTALLIZED 48 MG TABLET PO SCH (10:05)
[2018-04-21] MEDS: TAMSULOSIN HCL 0.4 MG CAP.SR.24H PO SCH (10:05)
[2018-04-21] MEDS: FINASTERIDE 5 MG TABLET PO SCH (10:05)
--- NOTE | 2018-04-21 14:50 | PDOC PROGRESS REPORT ---
Subjective Progress Note for:: 04/21/18 Subjective:: The patient is a 83-year-old male with past medical history of diabetes, stage III chronic kidney disease, hypertension, peripheral vascular disease, right AKA , chronic left foot ulcer, dementia with delirium who was admitted overnight 04/18 for pyelonephritis. The patient is seen on morning rounds. He is found resting in bed comfortably on room air. He is alert and oriented x4 today. He states he has no new questions or concerns today. He does ask about timing of discharge to home. He reports that he would like to be discharged straight to home but understands that he may need to go to SNF for period of time. He requests that the marine air ground task force planners speak to his to make the decision for him. He denies fever, chills, chest pain, palpitations, dyspnea, abdominal pain, nausea vomiting diarrhea. He denies supra pubic tenderness, flank pain, dysuria , hematuria. No concerns per nursing. Reason For Visit: ARF, UTI ENCEPHALOPATHY Physical Exam Vital Signs: Temp Pulse Resp BP Pulse Ox 98.5 F 76 19 104/47 L 96 04/21/18 12:00 04/21/18 12:00 04/21/18 12:00 04/21/18 12:00 04/21/18 12:00 Intake & Output 04/20/18 04/21/18 04/22/18 06:59 06:59 06:59 Intake Total 4296 5041 Output Total 1625 2900 Balance 2671 2141 Weight 75.8 kg 80.5 kg General appearance: PRESENT: no acute distress, cooperative, well-developed, well-nourished Head exam: PRESENT: atraumatic, normocephalic Eye exam: PRESENT: conjunctiva pink, EOMI, PERRLA. ABSENT: scleral icterus Ear exam: PRESENT: normal external ear exam Mouth exam: PRESENT: moist, tongue midline Neck exam: ABSENT: carotid bruit, JVD, lymphadenopathy, thyromegaly Respiratory exam: PRESENT: clear to auscultation casey, symmetrical, unlabored. ABSENT: rales, rhonchi, wheezes Cardiovascular exam: PRESENT: RRR, +S1, +S2. ABSENT: diastolic murmur, rubs, systolic murmur Pulses: PRESENT: normal dorsalis pedis pul Vascular exam: PRESENT: normal capillary refill GI/Abdominal exam: PRESENT: normal bowel sounds, soft. ABSENT: distended, guarding, mass, organolmegaly, rebound, tenderness Rectal exam: PRESENT: deferred Gentrourinary exam: PRESENT: indwelling catheter Extremities exam: PRESENT: full ROM, other - rt AKA. ABSENT: calf tenderness, clubbing, pedal edema Musculoskeletal exam: ABSENT: ambulatory - At baseline, can assist with chair to wheelchair transfers and self propel in wheelchair. Neurological exam: PRESENT: alert, awake, oriented to person, oriented to place , oriented to time, oriented to situation, CN II-XII grossly intact. ABSENT: motor sensory deficit Psychiatric exam: PRESENT: appropriate affect, normal mood. ABSENT: homicidal ideation, suicidal ideation Skin exam: PRESENT: dry, warm, other - Chronic wound to left great toe; slightly edematous, no erythema, scant serosanguineous drainage.. ABSENT: cyanosis, rash Results Laboratory Results: 04/21/18 04:40 04/21/18 04:40 04/21/18 04/21/18 04:40 04:40 WBC 7.9 RBC 3.63 L Hgb 11.3 L Hct 32.2 L MCV 89 MCH 31.1 MCHC 35.0 RDW 13.6 Plt Count 196 Sodium 138.7 Potassium 4.5 Chloride 104 Carbon Dioxide 23 Anion Gap 12 BUN 15 Creatinine 1.32 H Est GFR ( Amer) > 60 Est GFR (Non-Af Amer) 52 L Glucose 346 H Calcium 9.1 04/19/18 04/19/18 04/19/18 03:25 03:25 09:17 Creatine Kinase 68 61 CK-MB (CK-2) 1.60 Troponin I 0.026 04/19/18 04/19/18 04/19/18 09:17 15:15 15:15 Creatine Kinase 79 CK-MB (CK-2) 1.77 2.00 Troponin I 0.029 0.029 Impressions: Chest X-Ray 04/18/18 19:59 IMPRESSION: NO ACUTE RADIOGRAPHIC FINDING IN THE CHEST. Assessment & Plan - Diagnosis (1) Pyelonephritis Is this a current diagnosis for this admission?: Yes Plan: Improved; leukocytosis has resolved, patient is afebrile, good appetite, mental status returned to baseline. Urinalysis revealed blood, nitrites, leukoesterase, WBCs, and bacteria. Preliminary urinary culture demonstrates gram-negative rods; identification and sensitivities pending.. Continue Rocephin. He is provided IV fluids. Fajardo catheter has been replaced. (2) Altered mental status Qualifiers: Altered mental status type: delirium Qualified Code(s): R41.0 - Disorientation, unspecified Is this a current diagnosis for this admission?: Yes Plan: Resolved; patient appears to be at baseline. Secondary to acute infection, dehydration, and dementia. The patient was provided empiric antibiotics and IV fluids as above. Providing supportive care and for patient safety. Continue the patient's home dosed Aricept. (3) Urinary retention Is this a current diagnosis for this admission?: Yes Plan: Patient with chronic Fajardo catheter; states that has been greater than a month since the catheter has been exchanged. Scant bleeding noted at urethra prior to exchange. Fajardo catheter has been exchanged. Continuing his home dose Proscar and tamsulosin. Continues to have good urinary output. (4) Diabetes mellitus Qualifiers: Diabetes mellitus type: type 2 Diabetes mellitus group home insulin use: with laborer marine terminal use Diabetes mellitus complication status: with kidney complications Diabetes mellitus complication detail: with chronic kidney disease Chronic kidney disease stage: stage 3 (moderate) Qualified Code(s): E11.22 - Type 2 diabetes mellitus with diabetic chronic kidney disease; N18.3 - Chronic kidney disease, stage 3 (moderate); N18.3 - Chronic kidney disease, stage 3 (moderate); N18.3 - Chronic kidney disease, stage 3 (moderate); Z79.4 - manager intermediate (current) use of insulin; Z79.4 - manager intermediate (current) use of insulin; Z79.4 - half-way (current) use of insulin; Z79.4 - half-way (current) use of insulin Is this a current diagnosis for this admission?: Yes Plan: Labile blood sugars secondary to medication administration inconsistencies on day of admission due to late resumption of home insulin regimen. The patient had a hypoglycemic event overnight 04/20-04/21. Hypoglycemia was likely secondary to Humalog correction yesterday afternoon and prior to dinner followed by home dose 70/30 resumed in the evening. Blood sugars were well- controlled yesterday 105-243. However, nursing held yesterday evening's 70/30 due to concern regarding previous night hypoglycemia. Unfortunately, the patient is now hyperglycemic in the 300s. The patient is placed on a consistent carb diet; encourage bedtime snack. Accu-Cheks before meals and at bedtime with Humalog for sliding scale coverage. Continue 70/30; have discussed with nursing, will pass on to not hold evening insulin without first discussing with provider. Anticipate that the patient will have hyperglycemia throughout the day today; hopefully will achieve control by tomorrow with consistent insulin administration. (5) Depression Qualifiers: Depression Type: unspecified Qualified Code(s): F32.9 - Major depressive disorder, single episode, unspecified Is this a current diagnosis for this admission?: Yes Plan: Patient endorses several years of depression; evidenced by loss of interest in habits and social functions, decreased appetite, poor sleep, and ambivalence toward health and end of life. Patient denies SI/HI, but does state that he "welcomes the end when it comes knocking." He is agreeable to trial of antidepressant. Started on low-dose Remeron; may help with depression, sleep, and poor appetite. Doing well, patient denies side effects. Consider psych consultation. (6) Chronic kidney disease, stage III (moderate) Is this a current diagnosis for this admission?: Yes Plan: Improved; creatinine at baseline (1.32) with normal BUN. Encourage p.o. fluids. Avoid nephrotoxic medications. (7) DNR (do not resuscitate) Is this a current diagnosis for this admission?: Yes Plan: The patient confirms that he is a DNR. - Time Time Spent with patient: 15-24 minutes Medications reviewed and adjusted accordingly: Yes Anticipated discharge: SNF Within: within 24 hours
[2018-04-22] MEDS: HEPARIN SOD (PORCINE) 5,000 UNIT/ML 1 ML SYRINGE SUBCUT SCH ×4 (00:16→21:51)
[2018-04-22] MEDS: DONEPEZIL HCL 5 MG TABLET PO SCH (00:29)
[2018-04-22] MEDS: GABAPENTIN 100 MG CAPSULE PO SCH ×2 (00:29→21:51)
[2018-04-22] MEDS: MIRTAZAPINE 15 MG TABLET PO SCH ×2 (00:29→21:51)
[2018-04-22] MEDS: TRAMADOL HCL 50 MG TABLET PO SCH ×3 (00:29→21:51)
[2018-04-22] MEDS: CEFTRIAXONE SODIUM 1,000 MG in DEXTROSE 5%-WATER 50 ML IV SCH (00:29)
[2018-04-22] MEDS: HUM INSULIN NPH/REG INSULIN HM 100 UNIT/1 ML 3 ML SUBCUT SCH ×3 (00:30→21:51)
[2018-04-22] MEDS: LEVOTHYROXINE SODIUM 0.15 MG TABLET PO SCH (05:45)
[2018-04-22] MEDS: FERROUS SULFATE 325 MG TABLET PO SCH ×2 (08:16→16:10)
[2018-04-22] MEDS: INSULIN LISPRO 100 UNIT/ML 3 ML VIAL SUBCUT PRN (08:16)
[2018-04-22] MEDS: FINASTERIDE 5 MG TABLET PO SCH (09:30)
[2018-04-22] MEDS: TAMSULOSIN HCL 0.4 MG CAP.SR.24H PO SCH (09:30)
[2018-04-22] MEDS: DOCUSATE SODIUM 100 MG CAPSULE PO SCH ×2 (09:30→17:11)
[2018-04-22] MEDS: CLOPIDOGREL BISULFATE 75 MG TABLET PO SCH (09:31)
[2018-04-22] MEDS: FENOFIBRATE NANOCRYSTALLIZED 48 MG TABLET PO SCH (09:31)
[2018-04-22] MEDS ORDERED: ONDANSETRON 4 MG TAB.RAPDIS PO PRN (12:58)
[2018-04-22] MEDS ORDERED: CIPROFLOXACIN HCL 500 MG TABLET PO ONE (15:00)
--- NOTE | 2018-04-22 18:37 | PDOC PROGRESS REPORT ---
Subjective Progress Note for:: 04/22/18 Subjective:: The patient is a 83-year-old male with past medical history of diabetes, stage III chronic kidney disease, hypertension, peripheral vascular disease, right AKA , chronic left foot ulcer, dementia with delirium who was admitted overnight 04/18 for pyelonephritis. The patient is seen on morning rounds. He is found resting in bed comfortably on room air. He is alert and oriented to self, place, and most of situation but not the year today. He reports that he is feeling well and has no questions or concerns at this time. He denies fever, chills, chest pain, palpitations, dyspnea, abdominal pain, nausea vomiting diarrhea. He denies supra pubic tenderness, flank pain, dysuria , hematuria. I briefly updated his today, she had no questions or concerns. No concerns per nursing. Patient should be stable for discharge to SNF tomorrow if he tolerates antibiotic overnight without intractable nausea or vomiting. Reason For Visit: ARF, UTI ENCEPHALOPATHY Physical Exam Vital Signs: Temp Pulse Resp BP Pulse Ox 98.8 F 76 16 123/55 L 96 04/22/18 15:45 04/22/18 15:45 04/22/18 15:45 04/22/18 15:45 04/22/18 15:45 Intake & Output 04/21/18 04/22/18 04/23/18 06:59 06:59 06:59 Intake Total 5041 2683 503 Output Total 2900 2450 1375 Balance 2141 233 -872 Weight 80.5 kg 80.5 kg General appearance: PRESENT: no acute distress, cooperative, well-developed, well-nourished Head exam: PRESENT: atraumatic, normocephalic Eye exam: PRESENT: conjunctiva pink, EOMI, PERRLA. ABSENT: scleral icterus Ear exam: PRESENT: normal external ear exam Mouth exam: PRESENT: moist, tongue midline Neck exam: ABSENT: carotid bruit, JVD, lymphadenopathy, thyromegaly Respiratory exam: PRESENT: clear to auscultation casey, symmetrical, unlabored. ABSENT: rales, rhonchi, wheezes Cardiovascular exam: PRESENT: RRR, +S1, +S2. ABSENT: diastolic murmur, rubs, systolic murmur Pulses: PRESENT: normal dorsalis pedis pul Vascular exam: PRESENT: normal capillary refill GI/Abdominal exam: PRESENT: normal bowel sounds, soft. ABSENT: distended, guarding, mass, organolmegaly, rebound, tenderness Rectal exam: PRESENT: deferred Extremities exam: PRESENT: full ROM, other - Right AKA. ABSENT: calf tenderness , clubbing, pedal edema Neurological exam: PRESENT: alert, awake, oriented to person, oriented to place , oriented to situation, CN II-XII grossly intact, other - Baseline mental status. ABSENT: oriented to time, motor sensory deficit Psychiatric exam: PRESENT: appropriate affect, normal mood. ABSENT: homicidal ideation, suicidal ideation Skin exam: PRESENT: dry, intact, warm. ABSENT: cyanosis, rash Results Laboratory Results: 04/21/18 04:40 04/21/18 04:40 04/19/18 04/19/18 04/19/18 03:25 03:25 09:17 Creatine Kinase 68 61 CK-MB (CK-2) 1.60 Troponin I 0.026 04/19/18 04/19/18 04/19/18 09:17 15:15 15:15 Creatine Kinase 79 CK-MB (CK-2) 1.77 2.00 Troponin I 0.029 0.029 Impressions: Chest X-Ray 04/18/18 19:59 IMPRESSION: NO ACUTE RADIOGRAPHIC FINDING IN THE CHEST. Assessment & Plan - Diagnosis (1) Pyelonephritis Is this a current diagnosis for this admission?: Yes Plan: Improved; leukocytosis has resolved, patient is afebrile, good appetite, mental status returned to baseline. Urinalysis revealed blood, nitrites, leukoesterase, WBCs, and bacteria. Urine culture: Pseudomonas aeruginosa The patient has multiple medication/antibiotic allergies. Unfortunately, he cannot recall the reactions he has had. I spoke with his over the phone, and she was also unable to clarify the seriousness of his med reactions. Discussed with pharmacy options other than penicillins and fluoroquinolones; however, Cipro or Levaquin would be the only p.o. option. It is possible that the urinalysis and urine culture have revealed a colonized bacteria given that the patient has a chronic Fajardo catheter. However, on presentation, the patient had leukocytosis and an acute mental status change with only mild acute on chronic kidney injury noted by chemistry. Remaining workup was otherwise negative, therefore I lean towards this being a true bacterial infection. We will trial p.o. ciprofloxacin with as needed Zofran available. First dose to be given tonight, will observe in the hospital to ensure patient is tolerating. Fajardo catheter has been replaced. Should be ready for discharge to SNF tomorrow if he tolerates his oral antibiotic without intractable nausea and vomiting. As he is going to a SNF, he can be discharged with mild nausea as the nursing staff there would be able to manage his symptoms. (2) Altered mental status Qualifiers: Altered mental status type: delirium Qualified Code(s): R41.0 - Disorientation, unspecified Is this a current diagnosis for this admission?: Yes Plan: Resolved; patient appears to be at baseline. Secondary to acute infection, dehydration, and dementia. The patient was provided empiric antibiotics and IV fluids as above. Providing supportive care and for patient safety. Continue the patient's home dosed Aricept. (3) Urinary retention Is this a current diagnosis for this admission?: Yes Plan: Patient with chronic Fajardo catheter; states that has been greater than a month since the catheter has been exchanged. Scant bleeding noted at urethra prior to exchange. Fajardo catheter has been exchanged. Continuing his home dose Proscar and tamsulosin. Continues to have good urinary output. (4) Diabetes mellitus Qualifiers: Diabetes mellitus type: type 2 Diabetes mellitus custodial insulin use: with tank terminal gauger use Diabetes mellitus complication status: with kidney complications Diabetes mellitus complication detail: with chronic kidney disease Chronic kidney disease stage: stage 3 (moderate) Qualified Code(s): E11.22 - Type 2 diabetes mellitus with diabetic chronic kidney disease; N18.3 - Chronic kidney disease, stage 3 (moderate); N18.3 - Chronic kidney disease, stage 3 (moderate); N18.3 - Chronic kidney disease, stage 3 (moderate); Z79.4 - halfway (current) use of insulin; Z79.4 - halfway (current) use of insulin; Z79.4 - halfway (current) use of insulin; Z79.4 - termite helper (current) use of insulin Is this a current diagnosis for this admission?: Yes Plan: Improved blood glucose today. The patient is placed on a consistent carb diet; encourage bedtime snack. Accu-Cheks before meals and at bedtime with Humalog for sliding scale coverage. Continue 70/30 24 units twice daily. (5) Depression Qualifiers: Depression Type: unspecified Qualified Code(s): F32.9 - Major depressive disorder, single episode, unspecified Is this a current diagnosis for this admission?: Yes Plan: Patient endorses several years of depression; evidenced by loss of interest in habits and social functions, decreased appetite, poor sleep, and ambivalence toward health and end of life. Patient denies SI/HI, but does state that he "welcomes the end when it comes knocking." He is agreeable to trial of antidepressant. Started on low-dose Remeron; may help with depression, sleep, and poor appetite. Doing well, patient denies side effects. (6) Chronic kidney disease, stage III (moderate) Is this a current diagnosis for this admission?: Yes Plan: Improved; creatinine at baseline (1.32) with normal BUN. Encourage p.o. fluids. Avoid nephrotoxic medications. (7) DNR (do not resuscitate) Is this a current diagnosis for this admission?: Yes Plan: The patient confirms that he is a DNR. - Time Time Spent with patient: 15-24 minutes Medications reviewed and adjusted accordingly: Yes Anticipated discharge: SNF Within: within 24 hours
[2018-04-22] MEDS ORDERED: METHYL SALICYLATE/MENTHOL BALM 29 GM TP PRN (19:07)
[2018-04-22] MEDS: CIPROFLOXACIN HCL 500 MG TABLET PO SCH (21:51)
[2018-04-23] MEDS: LEVOTHYROXINE SODIUM 0.15 MG TABLET PO SCH (05:42)
[2018-04-23] MEDS: HEPARIN SOD (PORCINE) 5,000 UNIT/ML 1 ML SYRINGE SUBCUT SCH ×2 (05:43→13:18)
[2018-04-23] MEDS: FERROUS SULFATE 325 MG TABLET PO SCH ×2 (07:26→16:33)
[2018-04-23] MEDS ORDERED: HUM INSULIN NPH/REG INSULIN HM 100 UNIT/1 ML 3 ML SUBCUT SCH ×2 (08:00→22:00)
[2018-04-23] MEDS: CIPROFLOXACIN HCL 500 MG TABLET PO SCH (09:30)
[2018-04-23] MEDS: FINASTERIDE 5 MG TABLET PO SCH (09:31)
[2018-04-23] MEDS: CLOPIDOGREL BISULFATE 75 MG TABLET PO SCH (09:31)
[2018-04-23] MEDS: DOCUSATE SODIUM 100 MG CAPSULE PO SCH ×2 (09:32→17:20)
[2018-04-23] MEDS: TRAMADOL HCL 50 MG TABLET PO SCH (09:32)
[2018-04-23] MEDS: TAMSULOSIN HCL 0.4 MG CAP.SR.24H PO SCH (09:32)
--- NOTE | 2018-04-23 13:32 | PDOC TRANSFER SUMMARY ---
General - Admit/Disc Date/PCP Admission Date/Primary Care Provider: 04/18/18 22:49 SABRINA NASH, DO Discharge Date: 04/23/18 - Discharge Diagnosis (1) Pyelonephritis Is this a current diagnosis for this admission?: Yes (2) Altered mental status Is this a current diagnosis for this admission?: Yes (3) Urinary retention Is this a current diagnosis for this admission?: Yes (4) Diabetes mellitus Is this a current diagnosis for this admission?: Yes (5) Depression Is this a current diagnosis for this admission?: Yes (6) Chronic kidney disease, stage III (moderate) Is this a current diagnosis for this admission?: Yes (7) DNR (do not resuscitate) Is this a current diagnosis for this admission?: Yes - Additional Information Resuscitation Status: Do Not Resuscitate Discharge Diet: Cardiac, Diabetic Discharge Activity: Activity As Tolerated Prescriptions: Ciprofloxacin HCl [Cipro 500 mg Tablet] 250 mg PO Q12 #14 tablet Ferrous Sulfate [Feosol 325 mg Tablet] 325 mg PO BID@0800,1700 #60 tablet Hum Insulin NPH/Reg Insulin Hm [Insulin 70-30 (NPH/Reg) 100 unit/mL] 20 unit SUBCUT QHS #1 vial Hum Insulin NPH/Reg Insulin Hm [Insulin 70-30 (NPH/Reg) 100 unit/mL] 24 unit SUBCUT QAM #1 vial Methyl Salicylate/Menthol [Cal[employer]-Live Analgesic [place] 29 gm] 1 applic TP Q2HP PRN # 1 tube PRN Reason: For Pain Mirtazapine [Remeron 15 mg Tablet] 15 mg PO QHS #30 tablet Ondansetron [Zofran Odt 4 mg Tablet] 4 mg PO Q6HP PRN #20 tab.rapdis PRN Reason: Home Medications: Clopidogrel Bisulfate [Plavix 75 mg Tablet] 75 mg PO DAILY 04/19/18 Donepezil HCl [Aricept] 10 mg PO QHS 04/19/18 Ergocalciferol (Vitamin D2) [Vitamin D2] 50,000 unit PO ESQUEDA@1000 04/19/18 Fenofibric Acid (Choline) [Fenofibric Acid] 45 mg PO DAILY 04/19/18 Finasteride [Proscar 5 mg Tablet] 5 mg PO DAILY 04/19/18 Gabapentin [Neurontin 100 mg Capsule] 100 mg PO QHS 04/19/18 Latanoprost [Xalatan 0.005% Oph Soln 2.5 ml] 1 drop OU QHS 04/19/18 Levothyroxine Sodium [Synthroid 0.15 mg Tablet] 0.15 mg PO DAILY 04/19/18 Omeprazole 20 mg PO DAILY 04/19/18 Tamsulosin HCl [Flomax 0.4 mg Cap.sr] 0.4 mg PO DAILY 04/19/18 Tramadol HCl [Ultram 50 mg Tablet] 50 mg PO Q12 04/19/18 Acetaminophen [Tylenol 325 mg Tablet] 650 mg PO Q4HP PRN tablet 04/23/18 Ciprofloxacin HCl [Cipro 500 mg Tablet] 250 mg PO Q12 #14 tablet 04/23/18 Clopidogrel Bisulfate [Plavix 75 mg Tablet] 75 mg PO DAILY tablet 04/23/18 Ferrous Sulfate [Feosol 325 mg Tablet] 325 mg PO BID@0800,1700 #60 tablet Finasteride [Proscar 5 mg Tablet] 5 mg PO DAILY tablet 04/23/18 Hum Insulin NPH/Reg Insulin Hm [Insulin 70-30 (NPH/Reg) 100 unit/mL] 20 unit SUBCUT QHS #1 vial 04/23/18 Hum Insulin NPH/Reg Insulin Hm [Insulin 70-30 (NPH/Reg) 100 unit/mL] 24 unit SUBCUT QAM #1 vial 04/23/18 Methyl Salicylate/Menthol [Calos-Live Analgesic [place] 29 gm] 1 applic TP Q2HP PRN # 1 tube 04/23/18 Mirtazapine [Remeron 15 mg Tablet] 15 mg PO QHS #30 tablet 04/23/18 Ondansetron [Zofran Odt 4 mg Tablet] 4 mg PO Q6HP PRN #20 tab.rapdis 04/23/18 Tamsulosin HCl [Flomax 0.4 mg Cap.sr] 0.4 mg PO DAILY cap.sr.24h 04/23/18 History of Present Illness Admission Date/PCP: 04/18/18 22:49 SABRNIA NASH DO History of Present Illness: Per H&P by Dr. Santiago: NELSON BHAT is a 83 year old male with a past medical history of diabetes, stage III chronic kidney disease, hypertension, peripheral vascular disease, right AKA, chronic left foot ulcer, dementia with delirium. Patient recently returned from detention to the home setting within the week where he has refused p.o. intake and become generally weak. His elderly and frail has been unable to meet his care needs in an independent setting. He is brought to the emergency room for evaluation. He is found to have leukocytosis, urinary tract infection and referred to the hospitalist for admission. Hospital Course Hospital Course: He patient was admitted through the emergency department with complaint of generalized weakness, fatigue, and increased confusion from his baseline approximately 1 week after being discharged home from detention facility. Initial evaluation revealed UTI by urinalysis and acute on chronic kidney injury. He was admitted to the medical floor on continuous cardiac telemetry and supported with IV fluids and empirically placed on IV Rocephin. The patient's mental status rapidly improved and by the following morning he had returned to his baseline of intermittently disoriented to time but otherwise conversationally and socially appropriate. His acute kidney injury corrected to his baseline creatinine of 1.3; his IV fluids were discontinued. At that time, the patient described several months to a year of depression symptoms including loss of interest in normal activities, increased fatigue but poor sleep, loss of interest in appetite, and ambivalence regarding end of life. The patient was agreeable to starting the anti-depressant Remeron, which hopefully will improve his sleep and appetite. He was started on low-dose Remeron 7.5 mg nightly without side effects and subsequently dose was increased to 15 mg nightly. Urine culture revealed Pseudomonas aeruginsa resistant to imipenem and meropenem ; the patient has multiple antibiotic allergies listed. Neither himself or his were able to verify his reactions. Therefore he was placed on ciprofloxacin (allergy is listed as nausea and vomiting) and observed overnight. The patient did not have any symptoms of nausea and did not require antiemetics. His Fajardo catheter was changed shortly after admission. While admitted, the patient did have 2 hypoglycemic episodes at 5:30 am each time; his insulin was subsequently decreased from 70/30 50 units twice daily to 24 units every morning and 20 units nightly. Blood glucose today is stable in the 140s, however, he will require close monitoring and further adjustments of his insulin as his diet certainly will change upon arrival to SNF. He is evaluated by speech therapy and advance to a thin liquid and regular consistency diet. At time of discharge, the patient is in stable condition, at his baseline mental status of alert and oriented to self, place, and situation, And maintaining oxygen saturations on room air. He is tolerating a regular consistency, thin liquid, consistent carb and cardiac diet. He is discharged with a 7 day prescription for ciprofloxacin to complete a 10 day course of therapy and recommended to follow-up with his urologist within 1 month and his primary care provider within 1 week. Physical Exam Vital Signs: Temp Pulse Resp BP Pulse Ox 98.5 F 78 14 114/64 98 04/23/18 11:36 04/23/18 11:36 04/23/18 11:36 04/23/18 11:36 04/23/18 11:36 Intake & Output 04/22/18 04/23/18 04/24/18 06:59 06:59 06:59 Intake Total 2683 1361 Output Total 2450 4450 Balance 233 -3089 Weight 80.5 kg 80.5 kg General appearance: PRESENT: no acute distress, cooperative, well-developed, well-nourished Head exam: PRESENT: atraumatic, normocephalic Eye exam: PRESENT: conjunctiva pink, EOMI, PERRLA. ABSENT: scleral icterus Ear exam: PRESENT: normal external ear exam Mouth exam: PRESENT: moist, tongue midline Neck exam: ABSENT: carotid bruit, JVD, lymphadenopathy, thyromegaly Respiratory exam: PRESENT: clear to auscultation casey, symmetrical, unlabored. ABSENT: rales, rhonchi, wheezes Cardiovascular exam: PRESENT: RRR, +S1, +S2. ABSENT: diastolic murmur, rubs, systolic murmur Pulses: PRESENT: normal dorsalis pedis pul Vascular exam: PRESENT: normal capillary refill GI/Abdominal exam: PRESENT: normal bowel sounds, soft. ABSENT: distended, guarding, mass, organolmegaly, rebound, tenderness Rectal exam: PRESENT: deferred Extremities exam: PRESENT: full ROM, other - History right AKA. ABSENT: calf tenderness, clubbing, pedal edema Neurological exam: PRESENT: alert, awake, oriented to person, oriented to place , oriented to situation, CN II-XII grossly intact. ABSENT: oriented to time, motor sensory deficit Psychiatric exam: PRESENT: appropriate affect, normal mood. ABSENT: homicidal ideation, suicidal ideation Skin exam: PRESENT: dry, intact, warm, other - Chronic wound left great toe; scant serous drainage.. ABSENT: cyanosis, rash Results Laboratory Results: 04/21/18 04:40 04/21/18 04:40 04/19/18 04/19/18 04/19/18 03:25 03:25 09:17 Creatine Kinase 68 61 CK-MB (CK-2) 1.60 Troponin I 0.026 04/19/18 04/19/18 04/19/18 09:17 15:15 15:15 Creatine Kinase 79 CK-MB (CK-2) 1.77 2.00 Troponin I 0.029 0.029 Impressions: Chest X-Ray 04/18/18 19:59 IMPRESSION: NO ACUTE RADIOGRAPHIC FINDING IN THE CHEST. Transfer Plan - Time Spent with Patient Time spent with patient: Less than 30 Minutes Qualifiers - * PATIENT BEING DISCHARGED WITH ANY OF THE FOLLOWING DIAGNOSIS: No Plan Discharge Plan: Discharge to SNF for short-term rehabilitation; may benefit from consideration of transition to long-term care. Time Spent: Less than 30 Minutes
[2018-04-23] MEDS: FENOFIBRATE NANOCRYSTALLIZED 48 MG TABLET PO SCH (15:22)
[2018-04-23 16:39] VITALS: BP 126/61
[2018-04-23] MEDS: ACETAMINOPHEN 325 MG TABLET PO PRN (17:20)
== END 2018-04-23 19:55 | DRG 690 ==
LOC: ER 18:35 → EH 22:49 → 4N 04-19 00:50
PROVIDERS: ADMIT Internal Medicine; ATTEND Internal Medicine
PROC: 3E0F73Z Introduction of Anti-inflammatory into Respiratory Tract, Via Natural or Artificial Opening (ICD-10-PCS; principal; 2018-04-19)
DX: N10 Acute pyelonephritis (principal); F05 Delirium due to known physiological condition; I69.351 Hemiplegia and hemiparesis following cerebral infarction affecting right dominant side; R64 Cachexia; N17.9 Acute kidney failure, unspecified; Z51.5 Encounter for palliative care; N39.0 Urinary tract infection, site not specified; Z66 Do not resuscitate; F32.9 Major depressive disorder, single episode, unspecified; E11.22 Type 2 diabetes mellitus with diabetic chronic kidney disease; N18.3 Chronic kidney disease, stage 3 (moderate); I13.10 Hypertensive heart and chronic kidney disease without heart failure, with stage 1 through stage 4 chronic kidney disease, or unspecified chronic kidney disease; E11.51 Type 2 diabetes mellitus with diabetic peripheral angiopathy without gangrene; E11.621 Type 2 diabetes mellitus with foot ulcer; F03.90 Unspecified dementia, unspecified severity, without behavioral disturbance, psychotic disturbance, mood disturbance, and anxiety; E78.00 Pure hypercholesterolemia, unspecified; B96.5 Pseudomonas (aeruginosa) (mallei) (pseudomallei) as the cause of diseases classified elsewhere; I25.10 Atherosclerotic heart disease of native coronary artery without angina pectoris; D63.1 Anemia in chronic kidney disease; Z96.649 Presence of unspecified artificial hip joint; N40.1 Benign prostatic hyperplasia with lower urinary tract symptoms; E03.9 Hypothyroidism, unspecified; R33.8 Other retention of urine; K21.9 Gastro-esophageal reflux disease without esophagitis; M19.90 Unspecified osteoarthritis, unspecified site; R62.7 Adult failure to thrive; Z68.23 Body mass index [BMI] 23.0-23.9, adult; I25.2 Old myocardial infarction; Z89.611 Acquired absence of right leg above knee; Z90.49 Acquired absence of other specified parts of digestive tract; Z79.4 Long term (current) use of insulin; Z79.899 Other long term (current) drug therapy; Z88.6 Allergy status to analgesic agent; Z88.4 Allergy status to anesthetic agent; Z88.3 Allergy status to other anti-infective agents; Z88.0 Allergy status to penicillin; Z88.2 Allergy status to sulfonamides
CPT/HCPCS: 36415; 71045; 80048; 80053; 81001; 82550; 82553; 82607; 82728; 82746; 82803; 82962; 83540; 83550; 83605; 83735; 84100; 84443; 84484; 85025; 85027; 85045; 87040; 87086; 87088; 87186; 96360; 99285; G8978-GP; G8979-GP; G8987-GO; G8988-GO; G8996-GN; G8997-GN; G8998-GN; J0696; J1644; J1815; J3490; J7030; J7120

== ENCOUNTER → 2018-05-06 | Outpatient (CLI) | payer MEDICARE ==
--- NOTE | 2018-05-07 10:32 | XCELERA REPORT ---
[address] [address] Lower Extremity Venous Evaluation Name: NELSON BHAT Age: 83 yrs Gender: Male : 1935 Patient Status: Outpatient Patient Location: Study Date: 05/06/2018 10:23 AM Procedure: A unilateral duplex scan of the left lower extremity veins was performed. The evaluation included responses to compression and other maneuvers with patient in the supine and standing positions to assess venous insufficiency. Reason For Study: LLE ULCER Ordering Physician: DEIE PEOPLES Performed By: Aleksandr Patterson Left Sided Venous Evaluation Deep venous system evaluation shows patent veins with no obstruction or significant reflux identified. 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 Femoral vein reflux: no reflux. Greater Saphenous vein, Proximal thigh: reflux: no reflux. Greater Saphenous vein, Distal thigh: reflux: no reflux. Greater Saphenous vein, Proximal below knee: reflux: no reflux. No significant Perforators identified. Interpretation Summary No DVT noted. 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 No significant deep or superficial reflux. : EDIE PEOPLES > Mirza Kennedy
--- NOTE | 2018-05-07 12:52 | XCELERA REPORT ---
[address] [address] Lower Extremity Arterial Evaluation Name: NELSON BHAT Age: 83 yrs Gender: Male : 1935 Patient Status: Outpatient Patient Location: Study Date: 05/06/2018 10:04 AM Procedure: A color flow and duplex scan of the lower extremity arteries was performed on the left with velocity and waveform anaylsis. 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 Monophasic with diminished velocity in the Posterior Tibial proximally, almost no flow distally. Monophasic trickle flow in the Anterior Tibial artery. Biphasic with fairly good velocity in the Peroneal artery. 50-99 % stenosis at the infrageniculate vessels. Ankle Brachial index was declined. Interpretation Summary Severe hemodynamically significant lesions in the left lower extremity only, on duplex imaging, at rest. Findings compatible with tissue loss. The Peroneal artery and or collaterals may be mitigating outcome. : EDIE PEOPLES > Mirza Kennedy
== END ==
LOC: SP 09:14
PROVIDERS: ATTEND Nurse Practitioner
DX: E11.621 Type 2 diabetes mellitus with foot ulcer (principal); L97.422 Non-pressure chronic ulcer of left heel and midfoot with fat layer exposed
CPT/HCPCS: 93926; 93970

== ENCOUNTER 2018-06-18 13:29 | Inpatient (IN) | payer MEDICARE ==
[2018-06-18] MEDS ORDERED: NORMAL SALINE 500 ML IV ONE (13:57)
--- NOTE | 2018-06-18 14:03 | ER Document Report ---
ED General - General Chief Complaint: Altered Mental Status Stated Complaint: ALTERED MENTAL STATUS Time Seen by Provider: 06/18/18 13:39 Mode of Arrival: Medic Information source: Patient, Emergency Med Personnel, [facility] Records, Outside Facility Records Notes: 83-year-old male with hypertension, hyperlipidemia, chronic kidney disease, peripheral vascular disease, type 2 diabetes, neurogenic bladder with chronic Fajardo, major depression, previous CVA, NC presents from [facility] with concern for altered mental status. Upon my exam patient is alert and oriented 3. He denies any chest pain, abdominal pain, shortness of breath , dysuria. He states he is cold. TRAVEL OUTSIDE OF THE [place] IN LAST 30 DAYS: No - HPI Onset: Just prior to arrival Onset/Duration: Sudden Quality of pain: No pain Severity: None Associated symptoms: denies: Chest pain, Productive cough, Fever, Headache, Nausea, Vomiting, Shortness of breath Exacerbated by: Denies Relieved by: Denies Similar symptoms previously: Yes Recently seen / treated by doctor: No - Related Data Allergies/Adverse Reactions: Sulfa (Sulfonamide Antibiotics) Allergy (Unknown, Verified 04/06/18 11:46) Unknown childhood reaction ciprofloxacin [From Cipro] Allergy (Verified 04/06/18 11:46) Vomiting Penicillins Allergy (Verified 04/06/18 11:46) Itch, rash fentanyl [Fentanyl] Adverse Reaction (Verified 04/06/18 11:46) agitation when given in conjunction with Versed midazolam HCl [From Versed] Adverse Reaction (Verified 04/06/18 11:46) agitation when given in conjunction with Fentanyl Past Medical History - General Information source: Patient, Emergency Med Personnel, [facility] Records - Social History Smoking Status: Never Smoker Frequency of alcohol use: None Drug Abuse: None Lives with: [facility] Family History: Reviewed & Not Pertinent, Other Patient has suicidal ideation: No Patient has homicidal ideation: No - Past Medical History Cardiac Medical History: Reports: Hx Coronary Artery Disease, Hx Heart Attack - NSTEMI 10/25/14, Hx Hypercholesterolemia, Hx Hypertension Neurological Medical History: Reports: Hx Cerebrovascular Accident - x 2, 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 Denies: Hx Peritoneal Dialysis Malignancy Medical History: GI Medical History: Reports: Hx Gastroesophageal Reflux Disease. Denies: Hx Pancreatitis Musculoskeletal Medical History: Reports Hx Arthritis Psychiatric Medical History: Reports: Hx Depression Traumatic Medical History: Reports: Hx Fractures - LT hip approx 6 years ago Infectious Medical History: Past Surgical History: Reports: Hx Appendectomy, Hx Cholecystectomy, Hx Orthopedic Surgery - x2 hip replacement. - Immunizations Hx Diphtheria, Pertussis, Tetanus Vaccination: Yes Hx Pneumococcal Vaccination: 10/14/14 Review of Systems - Review of Systems Notes: REVIEW OF SYSTEMS: CONSTITUTIONAL : Denies fever, chills, or sweats. Denies recent illness. Denies weight loss, recent hospitalizations. EENT: Denies visual changes, eye pain. Denies nasal or sinus congestion or discharge. Denies sore throat, oral lesions, difficulty swallowing. CARDIOVASCULAR: Denies chest pain. Denies palpitations. Denies lower extremity edema. RESPIRATORY: Denies cough, cold, or chest congestion. Denies shortness of breath, wheezing. GASTROINTESTINAL: Denies abdominal pain or distention. Denies nausea, vomiting , or diarrhea. Denies blood in vomitus, stools, or per rectum. Denies black, tarry stools. Denies constipation. GENITOURINARY: Denies difficulty urinating, painful urination, frequency, blood in urine, MUSCULOSKELETAL: Denies back or neck pain or stiffness. Denies joint pain or swelling. SKIN: Denies rash, lesions or sores. HEMATOLOGIC : Denies easy bruising or bleeding. LYMPHATIC: Denies swollen glands. NEUROLOGICAL: Denies confusion or altered mental status. Denies passing out or loss of consciousness. Denies dizziness or lightheadedness. Denies headache. Denies weakness or paralysis. Denies problems difficulty with ambulation, slurred speech. Denies sensory loss, numbness, or tingling. Denies seizures. PSYCHIATRIC: Denies anxiety or stress. Denies depression, suicidal ideation, or homicidal ideation. Denies visual or auditory hallucinations. Physical Exam - Vital signs Vitals: Temp Pulse BP Pulse Ox 97.6 F 103 H 121/75 95 06/18/18 13:36 06/18/18 13:36 06/18/18 13:36 06/18/18 13:36 Interpretation: Tachycardic. No: Hypotensive, Febrile - Notes Notes: PHYSICAL EXAMINATION: GENERAL: Well-appearing, well-nourished and in no acute distress. HEAD: Atraumatic, normocephalic. EYES: Pupils equal round and reactive to light, extraocular movements intact, sclera anicteric, conjunctiva are normal. ENT: Nares patent, oropharynx clear without exudates. dry mucous membranes. NECK: Normal range of motion, supple without lymphadenopathy LUNGS: Breath sounds clear to auscultation bilaterally and equal. No wheezes rales or rhonchi. HEART: Regular rate and rhythm without murmurs ABDOMEN: Soft, nontender, nondistended abdomen. No guarding, no rebound. No masses appreciated. Musculoskeletal: Right BKA. Left foot wound with dressing and debility NEUROLOGICAL: Cranial nerves grossly intact. Normal speech, Normal sensory, motor exams PSYCH: Flat Affect SKIN: Warm, Dry, normal turgor, no rashes or lesions noted. Course - Re-evaluation Re-evalutation: Laboratory 06/18/18 06/18/18 06/18/18 14:24 15:04 15:50 WBC 9.8 RBC 4.25 L Hgb 12.9 L Hct 39.2 MCV 92 MCH 30.4 MCHC 32.9 RDW 14.1 H Plt Count 267 Seg Neutrophils % 74.7 Lymphocytes % 14.8 Monocytes % 8.6 Eosinophils % 1.2 Basophils % 0.7 Absolute Neutrophils 7.3 Absolute Lymphocytes 1.4 Absolute Monocytes 0.8 Absolute Eosinophils 0.1 Absolute Basophils 0.1 Sodium 144.6 Potassium 3.6 Chloride 109 H Carbon Dioxide 27 Anion Gap 9 BUN 55 H Creatinine 2.37 H Est GFR ( Amer) 32 L Est GFR (Non-Af Amer) 26 L Glucose 128 H Calcium 10.2 Urine Color YELLOW Urine Appearance TURBID Urine pH 7.0 Ur Specific Uriah 1.017 Urine Protein >=500 H Urine Glucose (UA) NEGATIVE Urine Ketones NEGATIVE Urine Blood SMALL H Urine Nitrite NEGATIVE Urine Bilirubin NEGATIVE Urine Urobilinogen NEGATIVE Ur Leukocyte Esterase MODERATE H Urine WBC (Auto) >182 Urine RBC (Auto) 23 Urine Bacteria (Auto) 3+ Urine WBC Clumps MANY Urine Mucus (Auto) MANY Urine Ascorbic Acid NEGATIVE Head CT 06/18/18 13:57 IMPRESSION: Involutional changes of aging with mild chronic microvascular ischemia. The size of the ventricles is disproportionate to the degree of atrophy. Is there any clinical evidence of normal pressure hydrocephalus? EVIDENCE OF ACUTE STROKE: NO. 06/18/18 16:13 [facility] called but unable to reach anyone regarding patient's baseline. Did to contact the patient's daughter Chela Hilton at phone number message left regarding the fact that her father is currently in the emergency department. 06/18/18 16:21 I did attempt to contact the patient's primary care physician Dr. Chela Florentino but again was unable to do so. I did finally speak to Nany Malone RN surgical garment assembly supervisor at [facility] to inform her that the patient will need neurology follow-up for possible normal pressure hydrocephalus. It is difficult to tell whether patient is more confused, unstable with ambulation since he has dementia a right BKA and a chronic Fajardo. Nany Malone states that she has taken note of this recommendation. 83-year-old male presents via EMS from [facility] with report of increasing confusion. Upon arrival vitals were reviewed. Patient is afebrile, mildly tachycardic and not hypoxic. He is alert and oriented 4. He has no physical complaints at this time. presented at the bedside a few hours after the patient's initial presentation and states that the patient was recently diagnosed with a urinary tract infection. She states that he is at his baseline as far as mentation. She reports a fall recently out of bed and states he was evaluated after that. I see no hospital visits at this facility for a fall recently. CT of the head was obtained and showed no evidence of acute stroke. Questionable hydrocephalus. Difficult to assess this secondary to dementia, chronic Fajardo and right BKA. CBC is without leukocytosis. CMP does show chronic renal insufficiency which is the patient's baseline. Urinalysis is significant for moderate leuk esterase and greater than 182 WBCs. Review of the patient's medications from [place] does not show a current antibiotic. After reviewing the patient's urine culture which was obtained June 12, 2018 by the patient's primary care physician it appears that the patient is allergic to anything that can be taken by mouth that is sensitive to the bacteria that is shown. Patient was given gentamicin 1.7 mg/kg. I did speak to Dr. Francis initially who told me that the patient would have to go to the [address] After speaking to my director I was informed that the current hospitalist has to at least assign a bed which she has currently. Patient was accepted by the hospitalist. Dr. Sampson sanon hospitalist still needs to evaluate the patient. Dr Deshpande is aware of patient. 06/18/18 18:56 - Vital Signs Vital signs: Temp Pulse Resp BP Pulse Ox 97.6 F 103 H 121/75 95 06/18/18 13:36 06/18/18 13:36 06/18/18 13:36 06/18/18 13:36 - Laboratory Result Diagrams: 06/18/18 15:04 06/18/18 14:24 Laboratory results interpreted by me: 06/18/18 06/18/18 06/18/18 14:24 15:04 15:50 RBC 4.25 L Hgb 12.9 L RDW 14.1 H Chloride 109 H BUN 55 H Creatinine 2.37 H Est GFR ( Amer) 32 L Est GFR (Non-Af Amer) 26 L Glucose 128 H Urine Protein >=500 H Urine Blood SMALL H Ur Leukocyte Esterase MODERATE H - Diagnostic Test Radiology reviewed: Image reviewed, Reports reviewed - EKG Interpretation by Me EKG shows normal: Sinus rhythm Rate: Normal [place]/QRS: LBBB When compared to previous EKG there are: No significant change Discharge - Discharge Clinical Impression: Chronic kidney disease, stage III (moderate), Neurogenic bladder, Tachycardia, Normal pressure hydrocephalus concern UTI (urinary tract infection) Qualifiers: Urinary tract infection type: catheter-associated UTI Indwelling urinary catheter type: indwelling urethral catheter Encounter type: sequela Qualified Code(s): T83.511S - Infection and inflammatory reaction due to indwelling urethral catheter, sequela; N39.0 - Urinary tract infection, site not specified ; N39.0 - Urinary tract infection, site not specified Altered mental status Qualifiers: Altered mental status type: unspecified Qualified Code(s): R41.82 - Altered mental status, unspecified Dementia Qualifiers: Dementia type: unspecified type Dementia behavioral disturbance: without behavioral disturbance Qualified Code(s): F03.90 - Unspecified dementia without behavioral disturbance Condition: Fair Disposition: ADMITTED INPATIENT Admitting Provider: Hospitalist Unit Admitted: Medical Floor Referrals: SABRINA NASH DO [Primary Care Provider] - Follow up as needed
[2018-06-18 14:53] LABS: ANION GAP 9 (5-19); BLOOD UREA NITROGEN 55 mg/dL (7-20); CALCIUM 10.2 mg/dL (8.4-10.2); CARBON DIOXIDE 27 mmol/L (22-30); CHLORIDE 109 mmol/L (98-107); GLUCOSE 128 mg/dL (75-110); POTASSIUM 3.6 mmol/L (3.6-5.0); SODIUM 144.6 mmol/L (137-145)
--- NOTE | 2018-06-18 15:00 | RADIOLOGY REPORT (SQ) ---
EXAM DESCRIPTION: CT HEAD WITHOUT COMPLETED DATE/TIME: 06/18/2018 2:42 pm REASON FOR STUDY: confusion COMPARISON: 04/28/2015 TECHNIQUE: Axial images acquired through the brain without intravenous contrast. Images reviewed wi th bone, brain and subdural windows. Additional sagittal and coronal reconstructions were generated. Images stored on PACS. All CT scanners at this facility use dose modulation, iterative reconstruction, and/or weight based d osing when appropriate to reduce radiation dose to as low as reasonably achievable (ALARA). [facility]: Dose Right [facility]: CareDose [facility]: Dose Right [facility]: Teradose 4D [facility]: Smart GeoSentric RADIATION DOSE: CT Rad equipment meets quality standard of care and radiation dose reduction techniq ues were employed. CTDIvol: 23.1 mGy. DLP: 1044 mGy-cm. mGy. LIMITATIONS: None. FINDINGS: VENTRICLES: Prominent ventricles secondary to involutional atrophy. CEREBRUM: Mild cortical atrophy. No masses. No hemorrhage. No midline shift. No evidence for acut e infarction. Small areas of low density in the white matter most likely chronic small vessel ischemi c changes. CEREBELLUM: No masses. No hemorrhage. No alteration of density. No evidence for acute infarction. EXTRAAXIAL SPACES: No fluid collections. No masses. ORBITS AND GLOBE: No intra- or extraconal masses. Normal contour of globe without masses. CALVARIUM: No fracture. PARANASAL SINUSES: No fluid or mucosal thickening. SOFT TISSUES: No mass or hematoma. OTHER: No other significant finding. IMPRESSION: Involutional changes of aging with mild chronic microvascular ischemia. The size of the ventricles is disproportionate to the degree of atrophy. Is there any clinical evide nce of normal pressure hydrocephalus? EVIDENCE OF ACUTE STROKE: NO. COMMENT: Quality ID # [id number]: Final reports with documentation of one or more dose reduction techniques (e.g., Automated exposure control, adjustment of the mA and/or kV according to patient size, use of iterative reconstruction technique) TECHNICAL DOCUMENTATION: JOB ID: [id number]- All Rights Reserved Reading location - IP/workstation name: [email or web address]
[2018-06-18 15:14] LABS: ABSOLUTE BASOPHILS # (AUTO) 0.1 10^3/uL (0.0-0.2); ABSOLUTE EOSINOPHILS # (AUTO) 0.1 10^3/uL (0.0-0.6); ABSOLUTE LYMPHOCYTES (AUTO) 1.4 10^3/uL (0.5-4.7); ABSOLUTE MONOCYTES (AUTO) 0.8 10^3/uL (0.1-1.4); ABSOLUTE NEUT (AUTO) 7.3 10^3/uL (1.7-8.2); BASOPHILS % (AUTO) 0.7 % (0-2); EOSINOPHILS % (AUTO) 1.2 % (0-6); HEMATOCRIT 39.2 % (37.9-51.0); HEMOGLOBIN 12.9 g/dL (13.5-17.0); LYMPHOCYTES % (AUTO) 14.8 % (13-45); MEAN CORPUSCULAR HEMOGLOBIN 30.4 pg (27.0-33.4); MEAN CORPUSCULAR HGB CONC 32.9 g/dL (32.0-36.0); MEAN CORPUSCULAR VOLUME 92 fl (80-97); MONOCYTES % (AUTO) 8.6 % (3-13); PLATELET COUNT 267 10^3/uL (150-450); RED BLOOD COUNT 4.25 10^6/uL (4.35-5.55); RED CELL DISTRIBUTION WIDTH 14.1 % (11.5-14.0); SEGMENTED NEUTROPHILS % (AUTO) 74.7 % (42-78); TOTAL CELLS COUNTED % (AUTO) 100 %; WHITE BLOOD COUNT 9.8 10^3/uL (4.0-10.5)
[2018-06-18] MEDS ORDERED: NORMAL SALINE 1000 ML 1,000 ML IV ONE (15:47)
[2018-06-18 17:02] LABS: APPEARANCE,URINE TURBID; BILIRUBIN,URINE NEGATIVE (NEGATIVE); COLOR,URINE YELLOW; GLUCOSE, URINE NEGATIVE (NEGATIVE); KETONES,URINE NEGATIVE (NEGATIVE); LEUKOCYTE ESTERASE,URINE MODERATE (NEGATIVE); NITRITE,URINE NEGATIVE (NEGATIVE); PROTEIN,URINE >=500 mg/dL (NEGATIVE); URINE SPECIFIC GRAVITY 1.017; UROBILINOGEN,URINE NEGATIVE mg/dL (<2.0)
[2018-06-18] MEDS ORDERED: CEFTRIAXONE 1 GM/D5W RTU 1 GM/50 ML RTUPB IV ONE (17:47)
[2018-06-18] MEDS ORDERED: GENTAMICIN SULFATE INJ 80 MG/2 ML VIAL IV ONE (18:31)
--- NOTE | 2018-06-18 19:47 | EKG REPORT ---
SEVERITY:- ABNORMAL ECG - SINUS RHYTHM LEFT BUNDLE BRANCH BLOCK : Confirmed by: Marvin Castle MD 18-Jun-2018 19:47:21
[2018-06-18] MEDS ORDERED: PROMETHAZINE HCL INJ 25 MG/1 ML VIAL IV PRN (20:20)
[2018-06-18] MEDS ORDERED: ACETAMINOPHEN 325 MG TABLET PO PRN (20:20)
--- NOTE | 2018-06-18 21:06 | PDOC H&P ---
History of Present Illness Admission Date/PCP: 06/18/18 18:54 SABRINA NASH, Patient complains of: Altered mental status History of Present Illness: NELSON BHAT is a 83 year old male with advanced dementia, patient comes from [facility] with altered mental status. I called the [facility] facility and spoke with the nurse who takes care of him and tells me that he is usually confused in location, timing or president. He knows his name. Nurse also tells me that he is usually talkative, he converses with the nurses even though he is blind he can follow them with his eyes; but today he was more lethargic with his head down drooling. Upon my examination the patient seems to be at his baseline mental status, AO 1-2, ED attending reported AOx4? . Patient does not have any complaints or symptomatology. Patient has a chronic indwelling Fajardo for urinary retention, time was changed on 06/07. As per records patient had a fall recently and has been treated for that. Laboratory in the ED was done and came back positive with UTI. Concerns as patient has multiple allergies to sulfas, ciprofloxacin, penicillins to send him to the [facility] facility with p.o. antibiotics. CT of the head with involutional changes, no acute stroke with probably normal pressure hydrocephalus. Has multiple urinary tract infections in the past, urine cultures on 06/12 growing Proteus mirabilis ESBL, 7/ growing Pseudomonas Past Medical History Cardiac Medical History: Reports: Coronary Artery Disease, Myocardial Infarction - NSTEMI 10/25/14, Hyperlipidema, Hypertension Neurological Medical History: Reports: Seizures - r/t episodes of hypoglycemia only Endocrine Medical History: Reports: Diabetes Mellitus Type 2, Hypothyroidism Renal/ Medical History: Malignancy Medical History: GI Medical History: Reports: Gastroesophageal Reflux Disease Musculoskeltal Medical History: Reports: Arthritis Psychiatric Medical History: Reports: Depression Hematology: Reports: Anemia Denies: Hemophilia, Sickle Cell Disease Infectious Medical History: Past Surgical History Past Surgical History: Reports: Appendectomy, Cholecystectomy, Orthopedic Surgery - x2 hip replacement. 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 Family History Family History: Reviewed & Not Pertinent, Other Parental Family History Reviewed: No - Advance dementia unable to recall Children Family History Reviewed: NA Sibling(s) Family History Reviewed.: NA Medication/Allergy Home Medications: Clopidogrel Bisulfate [Plavix 75 mg Tablet] 75 mg PO DAILY 04/19/18 Donepezil HCl [Aricept] 10 mg PO QHS 04/19/18 Ergocalciferol (Vitamin D2) [Vitamin D2] 50,000 unit PO ESQUEDA@1000 04/19/18 Fenofibric Acid (Choline) [Fenofibric Acid] 45 mg PO DAILY 04/19/18 Finasteride [Proscar 5 mg Tablet] 5 mg PO DAILY 04/19/18 Gabapentin [Neurontin 100 mg Capsule] 100 mg PO QHS 04/19/18 Latanoprost [Xalatan 0.005% Oph Soln 2.5 ml] 1 drop OU QHS 04/19/18 Levothyroxine Sodium [Synthroid 0.15 mg Tablet] 0.15 mg PO DAILY 04/19/18 Omeprazole 20 mg PO DAILY 04/19/18 Tamsulosin HCl [Flomax 0.4 mg Cap.sr] 0.4 mg PO DAILY 04/19/18 Tramadol HCl [Ultram 50 mg Tablet] 50 mg PO Q12 04/19/18 Acetaminophen [Tylenol 325 mg Tablet] 650 mg PO Q4HP PRN tablet 04/23/18 Ciprofloxacin HCl [Cipro 500 mg Tablet] 250 mg PO Q12 #14 tablet 04/23/18 Clopidogrel Bisulfate [Plavix 75 mg Tablet] 75 mg PO DAILY tablet 04/23/18 Ferrous Sulfate [Feosol 325 mg Tablet] 325 mg PO BID@0800,1700 #60 tablet Finasteride [Proscar 5 mg Tablet] 5 mg PO DAILY tablet 04/23/18 Hum Insulin NPH/Reg Insulin Hm [Insulin 70-30 (NPH/Reg) 100 unit/mL] 20 unit SUBCUT QHS #1 vial 04/23/18 Hum Insulin NPH/Reg Insulin Hm [Insulin 70-30 (NPH/Reg) 100 unit/mL] 24 unit SUBCUT QAM #1 vial 04/23/18 Methyl Salicylate/Menthol [Calos-Live Analgesic [place]x 29 gm] 1 applic TP Q2HP PRN # 1 tube 04/23/18 Mirtazapine [Remeron 15 mg Tablet] 15 mg PO QHS #30 tablet 04/23/18 Ondansetron [Zofran Odt 4 mg Tablet] 4 mg PO Q6HP PRN #20 tab.rapdis 04/23/18 Tamsulosin HCl [Flomax 0.4 mg Cap.sr] 0.4 mg PO DAILY cap.sr.24h 04/23/18 Allergies/Adverse Reactions: Sulfa (Sulfonamide Antibiotics) Allergy (Unknown, Verified 04/06/18 11:46) Unknown childhood reaction ciprofloxacin [From Cipro] Allergy (Verified 04/06/18 11:46) Vomiting Penicillins Allergy (Verified 04/06/18 11:46) Itch, rash fentanyl [Fentanyl] Adverse Reaction (Verified 04/06/18 11:46) agitation when given in conjunction with Versed midazolam HCl [From Versed] Adverse Reaction (Verified 04/06/18 11:46) agitation when given in conjunction with Fentanyl Review of Systems Review of Systems: As outlined in the HPI, all others negative Physical Exam Vital Signs: Temp Pulse Resp BP Pulse Ox 97.6 F 103 H 121/75 95 06/18/18 13:36 06/18/18 13:36 06/18/18 13:36 06/18/18 13:36 Additional comments: General appearance: Elderly, alert and cooperative, and appears to be in no acute distress Head: Normocephalic Eyes: PEERL, EOMI, blindness. Ears: External auditory canal and tympanic membranes clear, hearing grossly intact. Nose: No nasal discharge. Throat: Oral cavity and pharynx dry. No inflammation, swelling, exudate or lesions. Neck: Neck supple, nontender without lymphadenopathy, masses or thyromegaly. Cardiac: Normal S1 and S2. No S3, S4 or murmurs. Rhythm is regular. There is no peripheral edema, cyanosis or pallor. Extremities are warm and well perfused. Capillary refill is less than 2 seconds. No carotid bruits. Lungs: Clear to auscultation and percussion without rales, rhonchi, wheezing or diminished breath sounds. Not using accessory muscles. Abdomen: Positive bowel sounds. Soft. Nondistended, nontender. No guarding or rebound. No masses. No hepatosplenomegaly Extremities: Right BKA. No varicosities. Neurological: Cranial nerves II through XII grossly intact. Skin: Skin npale, normal texture and turgor with no lesions or eruptions, warm and dry. Psychiatric: The mental examination revealed the patient was oriented to person , he knew he was at [facility], gave me the year as 1914, does not know the date or the president Results Laboratory Results: 06/18/18 06/18/18 06/18/18 14:24 15:04 15:50 WBC 9.8 RBC 4.25 L Hgb 12.9 L Hct 39.2 MCV 92 MCH 30.4 MCHC 32.9 RDW 14.1 H Plt Count 267 Seg Neutrophils % 74.7 Lymphocytes % 14.8 Monocytes % 8.6 Eosinophils % 1.2 Basophils % 0.7 Absolute Neutrophils 7.3 Absolute Lymphocytes 1.4 Absolute Monocytes 0.8 Absolute Eosinophils 0.1 Absolute Basophils 0.1 Sodium 144.6 Potassium 3.6 Chloride 109 H Carbon Dioxide 27 Anion Gap 9 BUN 55 H Creatinine 2.37 H Est GFR ( Amer) 32 L Est GFR (Non-Af Amer) 26 L Glucose 128 H Calcium 10.2 Urine Color YELLOW Urine Appearance TURBID Urine pH 7.0 Ur Specific Mode 1.017 Urine Protein >=500 H Urine Glucose (UA) NEGATIVE Urine Ketones NEGATIVE Urine Blood SMALL H Urine Nitrite NEGATIVE Urine Bilirubin NEGATIVE Urine Urobilinogen NEGATIVE Ur Leukocyte Esterase MODERATE H Urine WBC (Auto) >182 Urine RBC (Auto) 23 Urine Bacteria (Auto) 3+ Urine WBC Clumps MANY Urine Mucus (Auto) MANY Urine Ascorbic Acid NEGATIVE Impressions: Head CT 06/18/18 13:57 IMPRESSION: Involutional changes of aging with mild chronic microvascular ischemia. The size of the ventricles is disproportionate to the degree of atrophy. Is there any clinical evidence of normal pressure hydrocephalus? EVIDENCE OF ACUTE STROKE: NO. Assessment & Plan - Diagnosis (1) Encephalopathy acute Is this a current diagnosis for this admission?: Yes Plan: Patient comes in with altered mental status, he has advanced dementia but he still has interaction with the personnel at the [facility] facility, he was noted more lethargic today. In the ED seems to be to be at his baseline mental status, AO 1-2, as apparently is his baseline after my discussion with his nurse at the [facility] facility (2) UTI (urinary tract infection) Qualifiers: Urinary tract infection type: catheter-associated UTI Indwelling urinary catheter type: indwelling urethral catheter Encounter type: sequela Qualified Code(s): T83.511S - Infection and inflammatory reaction due to indwelling urethral catheter, sequela; N39.0 - Urinary tract infection, site not specified; N39.0 - Urinary tract infection, site not specified Is this a current diagnosis for this admission?: Yes Plan: Recurrent UTIs secondary to chronic indwelling Fajardo catheter secondary to urinary retention/neurogenic bladder. Fajardo catheter was last changed 06/07 in the [facility] facility. After reviewing of the cultures, last review protein was mirabilis ESBL and prior 1 pseudomonad. I will start the patient on IV meropenem until we can follow urine cultures. He has allergies to penicillin but these are rash and itching. IV fluids. Please follow blood cultures. (3) Dementia Qualifiers: Dementia type: unspecified type Dementia behavioral disturbance: without behavioral disturbance Qualified Code(s): F03.90 - Unspecified dementia without behavioral disturbance Is this a current diagnosis for this admission?: Yes Plan: Has advanced dementia. CT of the head shows possible normal pressure hydrocephalus, unknown if the patient had before urinary incontinence or problems walking is now his oral chair bound. If family agrees he could probably follows with neurology as an outpatient. Continue on Aricept (4) Chronic kidney disease, stage III (moderate) Is this a current diagnosis for this admission?: Yes Plan: BUN 55 and creatinine 2.37, patient has history of CKD stage III but suddenly in April his creatinine has increased from 1.37-2.42 and 2.55. Patient will be on IV fluids and we will reassess his renal function in the morning, maybe with IV hydration we can improve these values otherwise he will be transitioned to CKD stage IV. (5) Neurogenic bladder Is this a current diagnosis for this admission?: Yes Plan: Continue with chronic indwelling Fajardo catheter. (6) HTN (hypertension) Qualifiers: Hypertension type: essential hypertension Qualified Code(s): I10 - Essential (primary) hypertension Is this a current diagnosis for this admission?: Yes (7) Insulin dependent diabetes mellitus Is this a current diagnosis for this admission?: Yes Plan: Continue with melena 70/30, insulin lispro sliding scale. Accu-Cheks q. before meals and at bedtime and hypoglycemia protocol. (8) Hypothyroidism Is this a current diagnosis for this admission?: Yes Plan: Continue levothyroxine - Time Time Spent: 30 to 50 Minutes - Inpatient Certification Based on my medical assessment, after consideration of the patient's comorbidities, presenting symptoms, or acuity I expect that the services needed warrant INPATIENT care.: Yes I certify that my determination is in accordance with my understanding of Medicare's requirements for reasonable and necessary INPATIENT services [42 CFR 412.3e].: Yes Medical Necessity: Risk of Complication if Not Cared For in Hospital
[2018-06-18] MEDS ORDERED: GLUCAGON,HUMAN RECOMB 1 MG INJ IM PRN (21:08)
[2018-06-18] MEDS ORDERED: DEXTROSE 40% GEL 15 GM TUBE PO PRN ×2 (21:08)
[2018-06-18] MEDS ORDERED: DEXTROSE 50%-WATER 25 GM/50 ML DISP.SYRIN IV PRN ×2 (21:08)
[2018-06-18] MEDS: HEPARIN SOD (PORCINE) 5,000 UNIT/ML 1 ML SYRINGE SUBCUT SCH (21:12)
[2018-06-18] MEDS ORDERED: (PENDING PHARMACY ID) (Donepezil Hcl [Aricept] 10 MG) PO SCH (22:00)
[2018-06-18] MEDS ORDERED: MEROPENEM 1 GM in NORMAL SALINE 50 ML IV SCH (22:00)
[2018-06-18] MEDS: TRAMADOL HCL 50 MG TABLET PO SCH (22:12)
[2018-06-18] MEDS: GABAPENTIN 100 MG CAPSULE PO SCH (22:13)
[2018-06-18] MEDS: DONEPEZIL HCL 5 MG TABLET PO SCH (22:13)
[2018-06-18] MEDS: MIRTAZAPINE 15 MG TABLET PO SCH (22:13)
[2018-06-19] MEDS: HUM INSULIN NPH/REG INSULIN HM 100 UNIT/1 ML 3 ML SUBCUT SCH ×3 (00:36→21:03)
[2018-06-19] MEDS: LATANOPROST 0.005% OPH SOLN 2.5 ML OU SCH ×2 (01:11→21:04)
[2018-06-19 09:19] LABS: ABSOLUTE BASOPHILS # (AUTO) 0.1 10^3/uL (0.0-0.2); ABSOLUTE EOSINOPHILS # (AUTO) 0.1 10^3/uL (0.0-0.6); ABSOLUTE LYMPHOCYTES (AUTO) 2.2 10^3/uL (0.5-4.7); ABSOLUTE MONOCYTES (AUTO) 0.6 10^3/uL (0.1-1.4); ABSOLUTE NEUT (AUTO) 6.1 10^3/uL (1.7-8.2); BASOPHILS % (AUTO) 0.6 % (0-2); EOSINOPHILS % (AUTO) 1.3 % (0-6); HEMATOCRIT 34.5 % (37.9-51.0); HEMOGLOBIN 11.5 g/dL (13.5-17.0); LYMPHOCYTES % (AUTO) 24.5 % (13-45); MEAN CORPUSCULAR HEMOGLOBIN 30.7 pg (27.0-33.4); MEAN CORPUSCULAR HGB CONC 33.4 g/dL (32.0-36.0); MEAN CORPUSCULAR VOLUME 92 fl (80-97); MONOCYTES % (AUTO) 6.7 % (3-13); PLATELET COUNT 269 10^3/uL (150-450); RED BLOOD COUNT 3.75 10^6/uL (4.35-5.55); RED CELL DISTRIBUTION WIDTH 13.6 % (11.5-14.0); SEGMENTED NEUTROPHILS % (AUTO) 66.9 % (42-78); TOTAL CELLS COUNTED % (AUTO) 100 %; WHITE BLOOD COUNT 9.2 10^3/uL (4.0-10.5)
[2018-06-19 09:29] LABS: ANION GAP 11 (5-19); BLOOD UREA NITROGEN 47 mg/dL (7-20); CALCIUM 10.1 mg/dL (8.4-10.2); CARBON DIOXIDE 21 mmol/L (22-30); CHLORIDE 112 mmol/L (98-107); GLUCOSE 218 mg/dL (75-110); PHOSPHORUS 3.3 mg/dL (2.5-4.5); POTASSIUM 4.1 mmol/L (3.6-5.0); SODIUM 143.7 mmol/L (137-145)
[2018-06-19] MEDS: MEROPENEM 1 GM in NORMAL SALINE 50 ML IV SCH ×2 (09:53→17:06)
[2018-06-19] MEDS: LANSOPRAZOLE 15 MG TAB.RAP.DR PO SCH (09:54)
[2018-06-19] MEDS: LEVOTHYROXINE SODIUM 0.15 MG TABLET PO SCH (09:54)
[2018-06-19] MEDS: HEPARIN SOD (PORCINE) 5,000 UNIT/ML 1 ML SYRINGE SUBCUT SCH ×3 (09:54→21:04)
[2018-06-19] MEDS: FERROUS SULFATE 325 MG TABLET PO SCH ×2 (10:15→16:31)
[2018-06-19] MEDS: CLOPIDOGREL BISULFATE 75 MG TABLET PO SCH (10:15)
[2018-06-19] MEDS: TRAMADOL HCL 50 MG TABLET PO SCH ×2 (10:15→21:02)
[2018-06-19] MEDS: INSULIN LISPRO 100 UNIT/ML 3 ML VIAL SUBCUT PRN ×3 (10:19→17:07)
[2018-06-19] MEDS: FENOFIBRATE NANOCRYSTALLIZED 48 MG TABLET PO SCH (11:07)
[2018-06-19] MEDS: FINASTERIDE 5 MG TABLET PO SCH (11:08)
[2018-06-19] MEDS: FOLIC ACID/VITAMIN B COMP W-C CAPSULE PO SCH (11:08)
[2018-06-19] MEDS: TAMSULOSIN HCL 0.4 MG CAP.SR.24H PO SCH (16:31)
--- NOTE | 2018-06-19 20:55 | PDOC PROGRESS REPORT ---
Subjective Progress Note for:: 06/19/18 Subjective:: NELSON BHAT is a 83 year old male with advanced dementia, presenting from [facility] with altered mental status. He is usually confused to place, time and situation. He is usually oriented to his name and to some degree oriented to person. He is usually talkative, he converses with the nurses. He also is blind, but today he was more lethargic holding his head down and drooling. Patient has a chronic indwelling Fajardo for urinary retention , time was changed on 06/07. Laboratory in the ED was done and came back positive with UTI. CT of the head with involutional changes, no acute stroke with probably normal pressure hydrocephalus. Has multiple urinary tract infections in the past. 06/19/18: Today the patient still remains confused but is talkative and pleasant. He is unable to contribute substantially to his medical therapy but does acknowledge that he is not having any pain. Reason For Visit: UTI/ENCEPHALOPATHY Physical Exam Vital Signs: Temp Pulse Resp BP Pulse Ox 97.9 F 65 15 115/61 98 06/19/18 19:53 06/19/18 19:53 06/19/18 19:53 06/19/18 19:53 06/19/18 19:53 Intake & Output 06/18/18 06/19/18 06/20/18 06:59 06:59 06:59 Intake Total 1500 Output Total 1452 Balance 48 Weight 69.2 kg General appearance: PRESENT: no acute distress, cooperative Head exam: PRESENT: atraumatic, normocephalic Eye exam: PRESENT: conjunctiva pink. ABSENT: nystagmus, scleral icterus Ear exam: PRESENT: normal external ear exam. ABSENT: bleeding, drainage Mouth exam: PRESENT: neck supple, tongue midline Neck exam: ABSENT: JVD, tracheal deviation Respiratory exam: PRESENT: clear to auscultation casey, symmetrical, unlabored Cardiovascular exam: PRESENT: RRR. ABSENT: diastolic murmur, systolic murmur Pulses: PRESENT: normal carotid pulses, normal radial pulses, normal dorsalis pedis pul Vascular exam: PRESENT: normal capillary refill. ABSENT: pallor GI/Abdominal exam: PRESENT: normal bowel sounds, soft. ABSENT: distended, tenderness Neurological exam: PRESENT: alert, awake, oriented to person, CN II-XII grossly intact. ABSENT: oriented to place, oriented to time, oriented to situation, motor sensory deficit Psychiatric exam: PRESENT: appropriate affect, normal mood Skin exam: ABSENT: jaundice, rash, urticaria Results Laboratory Results: 06/19/18 06:34 06/19/18 06:34 18 06/19/18 06:34 06:34 WBC 9.2 RBC 3.75 L Hgb 11.5 L Hct 34.5 L MCV 92 MCH 30.7 MCHC 33.4 RDW 13.6 Plt Count 269 Seg Neutrophils % 66.9 Lymphocytes % 24.5 Monocytes % 6.7 Eosinophils % 1.3 Basophils % 0.6 Absolute Neutrophils 6.1 Absolute Lymphocytes 2.2 Absolute Monocytes 0.6 Absolute Eosinophils 0.1 Absolute Basophils 0.1 Sodium 143.7 Potassium 4.1 Chloride 112 H Carbon Dioxide 21 L Anion Gap 11 BUN 47 H Creatinine 1.85 H Est GFR ( Amer) 43 L Est GFR (Non-Af Amer) 35 L Glucose 218 H Calcium 10.1 Phosphorus 3.3 Magnesium 2.4 H Impressions: Head CT 06/18/18 13:57 IMPRESSION: Involutional changes of aging with mild chronic microvascular ischemia. The size of the ventricles is disproportionate to the degree of atrophy. Is there any clinical evidence of normal pressure hydrocephalus? EVIDENCE OF ACUTE STROKE: NO. Assessment & Plan - Diagnosis (1) Chronic kidney disease, stage III (moderate) Is this a current diagnosis for this admission?: Yes Plan: Treat UTI and continue current medications. Monitor renal function studies closely throughout the hospital course. (2) Dementia Qualifiers: Dementia type: unspecified type Dementia behavioral disturbance: without behavioral disturbance Qualified Code(s): F03.90 - Unspecified dementia without behavioral disturbance Is this a current diagnosis for this admission?: Yes Plan: Dementia complicates the ability to obtain accurate historical information no specific therapy will be employed. (3) Encephalopathy acute Is this a current diagnosis for this admission?: Yes Plan: Patient's encephalopathy seems to be significantly improved at this point he is probably close to his baseline per the description of his normal status. (4) Hypothyroidism Is this a current diagnosis for this admission?: Yes Plan: Continue home medications. Monitor thyroid function at some point during hospital course. (5) Insulin dependent diabetes mellitus Is this a current diagnosis for this admission?: Yes Plan: Use sliding scale insulin to help patient is able to take a diet. At that point reestablishing his home insulin regimen would be appropriate with continued monitoring of before meals and at bedtime blood sugars. (6) UTI (urinary tract infection) Qualifiers: Urinary tract infection type: catheter-associated UTI Indwelling urinary catheter type: indwelling urethral catheter Encounter type: sequela Qualified Code(s): T83.511S - Infection and inflammatory reaction due to indwelling urethral catheter, sequela; N39.0 - Urinary tract infection, site not specified; N39.0 - Urinary tract infection, site not specified Is this a current diagnosis for this admission?: Yes Plan: Continue current antibiotic therapy until such time as urine cultures provide direction for a more focused therapeutic intervention - Time Time Spent with patient: 35 or more minutes Medications reviewed and adjusted accordingly: Yes Anticipated discharge: SNF Within: within 72 hours
[2018-06-19] MEDS: DONEPEZIL HCL 5 MG TABLET PO SCH (21:03)
[2018-06-19] MEDS: GABAPENTIN 100 MG CAPSULE PO SCH (21:03)
[2018-06-19] MEDS: MIRTAZAPINE 15 MG TABLET PO SCH (21:03)
[2018-06-19] MEDS: NORMAL SALINE 1000 ML 1,000 ML IV PRN (22:05)
[2018-06-20] MEDS: MEROPENEM 1 GM in NORMAL SALINE 50 ML IV SCH ×2 (06:27→18:47)
[2018-06-20] MEDS: LEVOTHYROXINE SODIUM 0.15 MG TABLET PO SCH (06:28)
[2018-06-20] MEDS: LANSOPRAZOLE 15 MG TAB.RAP.DR PO SCH (06:28)
[2018-06-20] MEDS: HEPARIN SOD (PORCINE) 5,000 UNIT/ML 1 ML SYRINGE SUBCUT SCH ×3 (06:28→21:12)
[2018-06-20] MEDS: NORMAL SALINE 1000 ML 1,000 ML IV PRN (09:27)
[2018-06-20] MEDS: CLOPIDOGREL BISULFATE 75 MG TABLET PO SCH (09:28)
[2018-06-20] MEDS: TRAMADOL HCL 50 MG TABLET PO SCH ×2 (09:28→21:12)
[2018-06-20] MEDS: FINASTERIDE 5 MG TABLET PO SCH (09:30)
[2018-06-20] MEDS: FOLIC ACID/VITAMIN B COMP W-C CAPSULE PO SCH (09:30)
[2018-06-20] MEDS: FENOFIBRATE NANOCRYSTALLIZED 48 MG TABLET PO SCH (09:30)
[2018-06-20] MEDS: HUM INSULIN NPH/REG INSULIN HM 100 UNIT/1 ML 3 ML SUBCUT SCH ×2 (09:31→21:12)
[2018-06-20] MEDS: FERROUS SULFATE 325 MG TABLET PO SCH ×2 (09:35→18:46)
[2018-06-20] MEDS: INSULIN LISPRO 100 UNIT/ML 3 ML VIAL SUBCUT PRN (14:58)
--- NOTE | 2018-06-20 18:13 | PDOC TRANSFER SUMMARY ---
General - Admit/Disc Date/PCP Admission Date/Primary Care Provider: 06/18/18 18:54 SABRINA NASH, Discharge Date: 06/20/18 - Discharge Diagnosis (1) Chronic kidney disease, stage III (moderate) Is this a current diagnosis for this admission?: No (2) Dementia Is this a current diagnosis for this admission?: No (3) Encephalopathy acute Is this a current diagnosis for this admission?: Yes Summary: Mr. Bhat was admitted to [facility] for acute onset encephalopathy due to a clinically acute exacerbation of his chronic urinary tract infection. He responded well to IV cabipenum antibiotics and IV fluids. He has returned to his usual baseline mental status at discharge. (4) Hypothyroidism Is this a current diagnosis for this admission?: No (5) Insulin dependent diabetes mellitus Is this a current diagnosis for this admission?: No (6) UTI (urinary tract infection) Is this a current diagnosis for this admission?: Yes Summary: Mr. Bhat had a clinically acute exacerbation of his chronic urinary tract infection upon admission as evidenced by his acute encephalopathy. He responded very well to IV antibiotics and IV fluids. Antibotics will be continued parentally (IM) X 5 days after discharge. - Additional Information Discharge Diet: As Tolerated Discharge Activity: Activity As Tolerated Prescriptions: Ertapenem Sodium [Ertapenem] 1 gm IM DAILY 5 Days #5 vial MDD 1 gram Home Medications: Donepezil HCl [Aricept] 10 mg PO QHS 04/19/18 Ergocalciferol (Vitamin D2) [Vitamin D2] 50,000 unit PO ESQUEDA@1000 04/19/18 Gabapentin [Neurontin 100 mg Capsule] 100 mg PO QHS 04/19/18 Latanoprost [Xalatan 0.005% Oph Soln 2.5 ml] 1 drop OU QHS 04/19/18 Levothyroxine Sodium [Synthroid 0.15 mg Tablet] 0.15 mg PO DAILY 04/19/18 Omeprazole 20 mg PO DAILY 04/19/18 Tamsulosin HCl [Flomax 0.4 mg Cap.sr] 0.4 mg PO DAILY 04/19/18 Tramadol HCl [Ultram 50 mg Tablet] 50 mg PO Q12 04/19/18 Clopidogrel Bisulfate [Plavix 75 mg Tablet] 75 mg PO DAILY tablet 04/23/18 Ferrous Sulfate [Feosol 325 mg Tablet] 325 mg PO BID@0800,1700 #60 tablet Finasteride [Proscar 5 mg Tablet] 5 mg PO DAILY tablet 04/23/18 Hum Insulin NPH/Reg Insulin Hm [Insulin 70-30 (NPH/Reg) 100 unit/mL] 20 unit SUBCUT QHS #1 vial 04/23/18 Hum Insulin NPH/Reg Insulin Hm [Insulin 70-30 (NPH/Reg) 100 unit/mL] 24 unit SUBCUT QAM #1 vial 04/23/18 Mirtazapine [Remeron 15 mg Tablet] 15 mg PO QHS #30 tablet 04/23/18 Ondansetron [Zofran Odt 4 mg Tablet] 4 mg PO Q6HP PRN #20 tab.rapdis 04/23/18 Acetaminophen [Tylenol 325 mg Tablet] 650 mg PO Q4HP PRN 06/18/18 Fenofibrate Nanocrystallized [Tricor 48 mg Tablet] 48 mg PO DAILY 06/18/18 Folic Acid/Vitamin B Comp W-C [Nephrocaps Multiple Vitamin Capsule] 1 cap PO DAILY 06/18/18 Insulin Lispro [Humalog] 0 unit SQ .SLIDING SCALE 06/18/18 Ertapenem Sodium [Ertapenem] 1 gm IM DAILY 5 Days #5 vial MDD 1 gram 06/20/18 History of Present Illness Admission Date/PCP: 06/18/18 18:54 SABRINA NASH DO Patient complains of: Altered mental status. History of Present Illness: NELSON BHAT is a 83 year old male ho comes from [facility] with altered mental status, being lethargic and less responsive than his usual state of moderate dementia. Patient has a chronic indwelling Fajardo for urinary retention that was changed on 06/07. Laboratory in the ED was done and came back positive with UTI. He has experienced multiple urinary tract infections in the past with similar symptoms. Hospital Course Hospital Course: Mr. Bhat was admitted to [facility] for acute onset encephalopathy due to a clinically acute exacerbation of his chronic urinary tract infection. He responded well to IV cabipenum antibiotics and IV fluids. He has returned to his usual baseline mental status at discharge. Physical Exam Vital Signs: Temp Pulse Resp BP Pulse Ox 98.5 F 80 16 132/68 H 98 06/20/18 15:13 06/20/18 15:13 06/20/18 15:13 06/20/18 15:13 06/20/18 15:13 Intake & Output 06/19/18 06/20/18 06/21/18 06:59 06:59 06:59 Intake Total 2647 1361 Output Total 1977 1402 Balance 670 -41 Weight 70.1 kg General appearance: PRESENT: no acute distress, cooperative Head exam: PRESENT: atraumatic, normocephalic Eye exam: PRESENT: conjunctiva pink, other - Bilateral blindness. ABSENT: scleral icterus Mouth exam: PRESENT: neck supple, tongue midline Neck exam: ABSENT: thyromegaly, tracheal deviation Respiratory exam: PRESENT: clear to auscultation casey, symmetrical, unlabored Cardiovascular exam: PRESENT: RRR. ABSENT: clicks, diastolic murmur, gallop, rubs, systolic murmur Pulses: PRESENT: normal carotid pulses, normal radial pulses, normal dorsalis pedis pul Vascular exam: PRESENT: normal capillary refill. ABSENT: pallor GI/Abdominal exam: PRESENT: normal bowel sounds, soft. ABSENT: distended, tenderness Extremities exam: PRESENT: other - S/P Right BKA. ABSENT: pedal edema Musculoskeletal exam: ABSENT: dislocation, tenderness Neurological exam: PRESENT: alert, awake, oriented to person. ABSENT: oriented to place, oriented to time, oriented to situation Psychiatric exam: PRESENT: appropriate affect, normal mood Skin exam: ABSENT: jaundice, rash, urticaria Results Laboratory Results: 06/19/18 06:34 06/19/18 06:34 Impressions: Head CT 06/18/18 13:57 IMPRESSION: Involutional changes of aging with mild chronic microvascular ischemia. The size of the ventricles is disproportionate to the degree of atrophy. Is there any clinical evidence of normal pressure hydrocephalus? EVIDENCE OF ACUTE STROKE: NO. Transfer Plan - Disposition Transfer Plan: Transfer to [facility] today per plan. - Time Spent with Patient Time spent with patient: Greater than 30 Minutes Qualifiers - * PATIENT BEING DISCHARGED WITH ANY OF THE FOLLOWING DIAGNOSIS: No Plan Time Spent: Greater than 30 Minutes
[2018-06-20] MEDS: TAMSULOSIN HCL 0.4 MG CAP.SR.24H PO SCH (18:46)
[2018-06-20] MEDS: DONEPEZIL HCL 5 MG TABLET PO SCH (21:11)
[2018-06-20] MEDS: GABAPENTIN 100 MG CAPSULE PO SCH (21:12)
[2018-06-20] MEDS: MIRTAZAPINE 15 MG TABLET PO SCH (21:12)
[2018-06-20] MEDS: LATANOPROST 0.005% OPH SOLN 2.5 ML OU SCH (21:13)
[2018-06-20 23:08] VITALS: BP 112/47
[2018-06-22] MEDS ORDERED: ERGOCALCIFEROL (VITAMIN D2) 50000 UNIT (1.25 MG) CAPSULE PO SCH (10:00)
== END 2018-06-20 23:08 | DRG 698 ==
LOC: ER 13:29 → EH 18:54 → 4W 06-19 08:01
PROVIDERS: ADMIT Internal Medicine; ATTEND Internal Medicine
DX: T83.511A Infection and inflammatory reaction due to indwelling urethral catheter, initial encounter (principal); G93.49 Other encephalopathy; B96.4 Proteus (mirabilis) (morganii) as the cause of diseases classified elsewhere; I12.9 Hypertensive chronic kidney disease with stage 1 through stage 4 chronic kidney disease, or unspecified chronic kidney disease; E11.22 Type 2 diabetes mellitus with diabetic chronic kidney disease; N39.0 Urinary tract infection, site not specified; R33.9 Retention of urine, unspecified; N18.3 Chronic kidney disease, stage 3 (moderate); N31.9 Neuromuscular dysfunction of bladder, unspecified; D64.9 Anemia, unspecified; I25.10 Atherosclerotic heart disease of native coronary artery without angina pectoris; E78.5 Hyperlipidemia, unspecified; E03.9 Hypothyroidism, unspecified; K21.9 Gastro-esophageal reflux disease without esophagitis; H54.7 Unspecified visual loss; F03.90 Unspecified dementia, unspecified severity, without behavioral disturbance, psychotic disturbance, mood disturbance, and anxiety; M19.90 Unspecified osteoarthritis, unspecified site; F32.9 Major depressive disorder, single episode, unspecified; Z79.899 Other long term (current) drug therapy; Z79.02 Long term (current) use of antithrombotics/antiplatelets; Z79.4 Long term (current) use of insulin; I25.2 Old myocardial infarction; Z89.511 Acquired absence of right leg below knee; Z88.2 Allergy status to sulfonamides; Z88.1 Allergy status to other antibiotic agents; Z88.0 Allergy status to penicillin; Z90.49 Acquired absence of other specified parts of digestive tract
CPT/HCPCS: 36415; 70450; 80048; 81001; 82962; 83735; 84100; 85025; 87040; 87086; 87088; 87186; 93005; 93010; 96360; 96361; 99285; J1580; J1644; J1815; J2185; J3490; J7030; J7040

== ENCOUNTER 2018-08-18 17:26 | Inpatient (IN) | payer MEDICARE ==
--- NOTE | 2018-08-14 12:27 | EKG REPORT ---
SEVERITY:- ABNORMAL ECG - SINUS RHYTHM FIRST DEGREE AV BLOCK LEFT BUNDLE BRANCH BLOCK : Confirmed by: Kae Carvalho MD 14-Aug-2018 12:26:36
[2018-08-14 13:15] LABS: HEMATOCRIT 39.4 % (37.9-51.0); HEMOGLOBIN 13.5 g/dL (13.5-17.0); MEAN CORPUSCULAR HEMOGLOBIN 30.6 pg (27.0-33.4); MEAN CORPUSCULAR HGB CONC 34.2 g/dL (32.0-36.0); MEAN CORPUSCULAR VOLUME 90 fl (80-97); PLATELET COUNT 311 10^3/uL (150-450); RED CELL DISTRIBUTION WIDTH 14.2 % (11.5-14.0); WHITE BLOOD COUNT 10.4 10^3/uL (4.0-10.5)
--- NOTE | 2018-08-14 13:27 | RADIOLOGY REPORT (SQ) ---
EXAM DESCRIPTION: CHEST PA/LATERAL COMPLETED DATE/TIME: 08/14/2018 12:43 pm REASON FOR STUDY: PRE-OP COMPARISON: 08/18/2015 EXAM PARAMETERS: NUMBER OF VIEWS: two views TECHNIQUE: Digital Frontal and Lateral radiographic views of the chest acquired. RADIATION DOSE: NA LIMITATIONS: none FINDINGS: LUNGS AND PLEURA: No opacities, masses or pneumothorax. No pleural effusion. MEDIASTINUM AND HILAR STRUCTURES: No masses or contour abnormalities. HEART AND VASCULAR STRUCTURES: Heart normal size. No evidence for failure. BONES: No acute findings. HARDWARE: None in the chest. OTHER: No other significant finding. IMPRESSION: NO SIGNIFICANT RADIOGRAPHIC FINDING IN THE CHEST. TECHNICAL DOCUMENTATION: JOB ID: [id number] [email or web address] All Rights Reserved Reading location - IP/workstation name: [email or web address]
[2018-08-14 13:45] LABS: ANION GAP 13 (5-19); BLOOD UREA NITROGEN 21 mg/dL (7-20); CALCIUM 10.7 mg/dL (8.4-10.2); CARBON DIOXIDE 27 mmol/L (22-30); CHLORIDE 100 mmol/L (98-107); GLUCOSE 197 mg/dL (75-110); POTASSIUM 4.5 mmol/L (3.6-5.0); SODIUM 139.6 mmol/L (137-145)
[2018-08-18 18:23] LABS: HEMATOCRIT 33.6 % (37.9-51.0); HEMOGLOBIN 11.7 g/dL (13.5-17.0); MEAN CORPUSCULAR HEMOGLOBIN 30.9 pg (27.0-33.4); MEAN CORPUSCULAR HGB CONC 34.8 g/dL (32.0-36.0); MEAN CORPUSCULAR VOLUME 89 fl (80-97); PLATELET COUNT 254 10^3/uL (150-450); RED BLOOD COUNT 3.78 10^6/uL (4.35-5.55); RED CELL DISTRIBUTION WIDTH 14.3 % (11.5-14.0); WHITE BLOOD COUNT 7.5 10^3/uL (4.0-10.5)
--- NOTE | 2018-08-18 18:35 | EKG REPORT ---
SEVERITY:- ABNORMAL ECG - SINUS RHYTHM LEFT BUNDLE BRANCH BLOCK : Confirmed by: Marvin Castle MD 18-Aug-2018 18:35:15
[2018-08-18 18:44] LABS: ANION GAP 11 (5-19); BLOOD UREA NITROGEN 19 mg/dL (7-20); CALCIUM 9.9 mg/dL (8.4-10.2); CARBON DIOXIDE 26 mmol/L (22-30); CHLORIDE 100 mmol/L (98-107); GLUCOSE 281 mg/dL (75-110); POTASSIUM 4.3 mmol/L (3.6-5.0); SODIUM 136.7 mmol/L (137-145)
--- NOTE | 2018-08-18 19:02 | RADIOLOGY REPORT (SQ) ---
EXAM DESCRIPTION: CHEST SINGLE VIEW COMPLETED DATE/TIME: 08/18/2018 6:38 pm REASON FOR STUDY: Pre-op Clearance COMPARISON: 08/14/2018 EXAM PARAMETERS: NUMBER OF VIEWS: One view. TECHNIQUE: Single frontal radiographic view of the chest acquired. RADIATION DOSE: NA LIMITATIONS: None. FINDINGS: LUNGS AND PLEURA: No opacities, masses or pneumothorax. No pleural effusion. MEDIASTINUM AND HILAR STRUCTURES: No masses. Contour normal. HEART AND VASCULAR STRUCTURES: Heart normal in size. Normal vasculature. BONES: No acute findings. HARDWARE: None in the chest. OTHER: No other significant finding. IMPRESSION: NO ACUTE RADIOGRAPHIC FINDING IN THE CHEST. TECHNICAL DOCUMENTATION: JOB ID: [id number] [employer]- All Rights Reserved Reading location - IP/workstation name: [email or web address]
[2018-08-18] MEDS ORDERED: ONDANSETRON 4 MG TAB.RAPDIS PO PRN (20:33)
[2018-08-18] MEDS ORDERED: ACETAMINOPHEN 325 MG TABLET PO PRN (20:33)
--- NOTE | 2018-08-18 20:33 | PDOC CONSULTATION ---
Consultation Consult Date: 08/18/18 Attending physician:: KIM RAMIREZ Consult reason:: Management of medical issues during patient hospitalization History of Present Illness Admission Date/PCP: 08/18/18 17:26 BAYLEE FERNANDEZ MD Patient complains of: Failed outpatient therapy for ulceration of the left foot with significant peripheral arterial disease. Patient is already status post right below-knee amputation. History of Present Illness: NELSON BHAT is a 83 year old male with a history of significant peripheral vascular disease. He has already undergone right below-knee amputation. They have been trying to salvage a toe but in fact this has been unsuccessful. Due to the patient's underlying poor vasculature it was felt that a below-knee amputation would be best as opposed to recurrent amputation surgeries. The patient is in a custodial facility so there will be help available through his recovery. Past Medical History Cardiac Medical History: Reports: Myocardial Infarction, Hypertension Denies: Atrial Fibrillation, Congestive Heart Failure, Coronary Artery Disease, Hyperlipidema, Peripheral Vascular Disease, Heart Murmur Neurological Medical History: Reports: Seizures - r/t episodes of hypoglycemia only Endocrine Medical History: Reports: Diabetes Mellitus Type 2 Denies: Hyperthyroidism, Hypothyroidism Endocrine History Note: Hypothyroidism Renal/ Medical History: Reports: End Stage Renal Disease Renal/ History Note: Prosthetic hypertrophy Malignancy Medical History: GI Medical History: Denies: Crohn's Disease, Gastroesophageal Reflux Disease, Hiatal Hernia Musculoskeltal Medical History: Reports: Arthritis Psychiatric Medical History: Reports: Depression Hematology: Reports: Anemia Denies: Hemophilia, Sickle Cell Disease Infectious Medical History: Reports: Methicillin-Resistant Staph Aureus Past Surgical History Past Surgical History: Reports: Appendectomy, Cholecystectomy, Orthopedic Surgery - x2 hip replacement., Other - Prior right leg amputation Denies: Colostomy, Coronary Artery Bypass Graft, Gastric Bypass Surgery, Herniorrhaphy, Pacemaker Comment Only: Tonsillectomy - UNSURE Social History Information Source: Patient, [facility] Records Lives with: [facility] Smoking Status: Former Smoker Frequency of Alcohol Use: None Hx Recreational Drug Use: No Drugs: None Hx Prescription Drug Abuse: No - Advance Directive Resuscitation Status: Full Code Family History Family History: Reviewed & Not Pertinent, Other Parental Family History Reviewed: Yes - Patient cannot recall parental history. Children Family History Reviewed: Yes - Son at 18 years old from motor vehicle accident. Sibling(s) Family History Reviewed.: Unknown Medication/Allergy Home Medications: Donepezil HCl [Aricept] 10 mg PO QHS 04/19/18 Gabapentin [Neurontin 100 mg Capsule] 100 mg PO QHS 04/19/18 Latanoprost [Xalatan 0.005% Oph Soln 2.5 ml] 1 drop OU QHS 04/19/18 Levothyroxine Sodium [Synthroid 0.15 mg Tablet] 0.15 mg PO DAILY 04/19/18 Omeprazole 20 mg PO DAILY 04/19/18 Tamsulosin HCl [Flomax 0.4 mg Cap.sr] 0.4 mg PO DAILY 04/19/18 Tramadol HCl [Ultram 50 mg Tablet] 50 mg PO Q12 04/19/18 Clopidogrel Bisulfate [Plavix 75 mg Tablet] 75 mg PO DAILY tablet 04/23/18 Finasteride [Proscar 5 mg Tablet] 5 mg PO DAILY tablet 04/23/18 Hum Insulin NPH/Reg Insulin Hm [Insulin 70-30 (NPH/Reg) 100 unit/mL] 20 unit SUBCUT QHS #1 vial 04/23/18 Hum Insulin NPH/Reg Insulin Hm [Insulin 70-30 (NPH/Reg) 100 unit/mL] 24 unit SUBCUT QAM #1 vial 04/23/18 Mirtazapine [Remeron 15 mg Tablet] 15 mg PO QHS #30 tablet 04/23/18 Ondansetron [Zofran Odt 4 mg Tablet] 4 mg PO Q6HP PRN #20 tab.rapdis 04/23/18 Acetaminophen [Tylenol 325 mg Tablet] 650 mg PO Q4HP PRN 06/18/18 Fenofibrate Nanocrystallized [Tricor 48 mg Tablet] 48 mg PO DAILY 06/18/18 Insulin Lispro [Humalog] 0 unit SQ .SLIDING SCALE 06/18/18 B Complex W-C No.20/Folic Acid [Nephrocaps Softgel] 1 mg PO DAILY 08/14/18 Eyelid Cleanser Comb No.7 [Ocusoft Lid Scrub] 1 each TP BID 08/14/18 Midodrine HCl 10 mg PO Q12 08/14/18 Tetracycline HCl 250 mg PO BID MDD STARTED 08/05 FOR 10 DAYS 08/14/18 Vancomycin HCl in 5 % Dextrose [Vancomycin 1 Gram/250 ml-D5w] 1 gm IV Q6 MDD STARTED 08/05 FOR 10 DAYS 08/14/18 Ergocalciferol (Vitamin D2) [Drisdol 50,000 Unit (1.25MG) Capsule] 50,000 unit PO ESQUEDA@10 08/18/18 Ferrous Sulfate [Feosol 325 mg Tablet] 325 mg PO Q12 08/18/18 Gentamicin Sulfate [Garamycin 0.3% Oph Oint 3.5 Gm Tube] 1 applic OU DAILY MDD STARTED 08/05 FOR 14 DAYS 08/18/18 Propylene Glycol/Peg 400/Pf [Systane Ultra 0.4-0.3% Eye Drp] 1 each OU QID 08/18 Allergies/Adverse Reactions: Sulfa (Sulfonamide Antibiotics) Allergy (Unknown, Verified 04/06/18 11:46) Unknown childhood reaction ciprofloxacin [From Cipro] Allergy (Verified 04/06/18 11:46) Vomiting Penicillins Allergy (Verified 04/06/18 11:46) Itch, rash fentanyl [Fentanyl] Adverse Reaction (Verified 04/06/18 11:46) agitation when given in conjunction with Versed midazolam HCl [From Versed] Adverse Reaction (Verified 04/06/18 11:46) agitation when given in conjunction with Fentanyl Review of Systems All systems: reviewed and no additional remarkable complaints except as stated Constitutional: PRESENT: weakness Gastrointestinal: PRESENT: heartburn Genitourinary: PRESENT: other - Indwelling Fajardo catheter Musculoskeletal: PRESENT: other - History of right below-knee amputation. Integumentary: PRESENT: wounds - Several skin tears on the right arm. Abrasion on his knee. Ulceration on the left foot. Neurological: PRESENT: memory loss Psychiatric: PRESENT: other - Dementia. Very flat affect. Physical Exam Vital Signs: Temp Pulse Resp BP Pulse Ox 97.9 F 69 15 132/67 H 96 08/18/18 20:03 08/18/18 20:03 08/18/18 20:03 08/18/18 20:03 08/18/18 20:03 Intake & Output 08/17/18 08/18/18 08/19/18 06:59 06:59 06:59 Weight 62.8 kg General appearance: PRESENT: no acute distress, cooperative - But extremely succinct answers. Head exam: PRESENT: atraumatic, normocephalic Eye exam: PRESENT: conjunctiva pink, EOMI. ABSENT: periorbital swelling, scleral icterus Ear exam: PRESENT: normal external ear exam Mouth exam: PRESENT: moist, tongue midline Neck exam: ABSENT: carotid bruit, JVD, lymphadenopathy Respiratory exam: PRESENT: clear to auscultation casey. ABSENT: rales, rhonchi, wheezes Cardiovascular exam: PRESENT: RRR, +S1, +S2 Pulses: PRESENT: normal radial pulses, other - Diminished left dorsalis pedis pulse. Right leg amputation therefore unable to assess. GI/Abdominal exam: PRESENT: normal bowel sounds, soft. ABSENT: distended, tenderness Gentrourinary exam: PRESENT: indwelling catheter Extremities exam: PRESENT: other - Right below-knee amputation. Decreased muscle mass. Musculoskeletal exam: PRESENT: deformity - Osteoarthritis both hands., other - Bedbound. Neurological exam: PRESENT: alert, awake, oriented to person Psychiatric exam: PRESENT: flat affect, other - Fails to make or maintain eye contact. He was constantly looking at the ceiling.. ABSENT: agitated, anxious Skin exam: PRESENT: abrasion - Skin tears on both arms. Dressing on left foot. This is the site of an ulcer. I did not take down the dressing as it was just applied., dry, pallor, warm Results Laboratory Results: 08/18/18 18:03 08/18/18 18:03 08/18/18 08/18/18 18:03 18:03 WBC 7.5 RBC 3.78 L Hgb 11.7 L Hct 33.6 L MCV 89 MCH 30.9 MCHC 34.8 RDW 14.3 H Plt Count 254 Sodium 136.7 L Potassium 4.3 Chloride 100 Carbon Dioxide 26 Anion Gap 11 BUN 19 Creatinine 1.14 Est GFR ( Amer) > 60 Est GFR (Non-Af Amer) > 60 Glucose 281 H Calcium 9.9 Impressions: Chest X-Ray 08/18/18 00:00 IMPRESSION: NO ACUTE RADIOGRAPHIC FINDING IN THE CHEST. Assessment & Plan - Diagnosis (1) Diabetes mellitus Qualifiers: Diabetes mellitus type: type 2 Diabetes mellitus superintendent container terminal insulin use: with superintendent container terminal use Diabetes mellitus complication status: with kidney complications Diabetes mellitus complication detail: with chronic kidney disease Chronic kidney disease stage: stage 3 (moderate) Qualified Code(s): E11.22 - Type 2 diabetes mellitus with diabetic chronic kidney disease; N18.3 - Chronic kidney disease, stage 3 (moderate); N18.3 - Chronic kidney disease, stage 3 (moderate); N18.3 - Chronic kidney disease, stage 3 (moderate); Z79.4 - keno terminal operator (current) use of insulin; Z79.4 - keno terminal operator (current) use of insulin; Z79.4 - keno terminal operator (current) use of insulin; Z79.4 - keno terminal operator (current) use of insulin Plan: The patient will remain on his 7030 insulin. He does dose twice daily. We will hold this evening's dose since he is on the surgery schedule first thing in the morning. He will also have sliding scale coverage. (2) Diabetes mellitus with peripheral artery disease Is this a current diagnosis for this admission?: Yes Plan: Despite Plavix the patient is not on any other medications. Amputation left leg below her knee scheduled for tomorrow. (3) Dementia Qualifiers: Dementia type: unspecified type Dementia behavioral disturbance: without behavioral disturbance Qualified Code(s): F03.90 - Unspecified dementia without behavioral disturbance Is this a current diagnosis for this admission?: Yes Plan: We will monitor the patient. The stress of the surgical procedure sometimes can lead to loss of coping mechanisms. We will continue his Aricept 10 mg daily for now. - Time Time Spent: 30 to 50 Minutes Medications reviewed and adjusted accordingly: Yes Anticipated discharge: SNF - Inpatient Certification Based on my medical assessment, after consideration of the patient's comorbidities, presenting symptoms, or acuity I expect that the services needed warrant INPATIENT care.: Yes I certify that my determination is in accordance with my understanding of Medicare's requirements for reasonable and necessary INPATIENT services [42 CFR 412.3e].: Yes Medical Necessity: Need for Pain Control, Need for IV Antibiotics, Need for Surgery - Plan Summary Plan Summary: The patient will continue on his current medication regimen. He will be n.p.o. past midnight and he will receive some of his medications however no Plavix and insulin. I will continue to follow the patient's medical issues during his hospitalization.
[2018-08-18] MEDS ORDERED: ONDANSETRON HCL INJ/PF 4 MG/2 ML SDV IV PRN (20:40)
[2018-08-18] MEDS ORDERED: DEXTROSE 40% GEL 15 GM TUBE PO PRN ×2 (20:41)
[2018-08-18] MEDS ORDERED: DEXTROSE 50%-WATER 25 GM/50 ML DISP.SYRIN IV PRN ×2 (20:41)
[2018-08-18] MEDS ORDERED: GLUCAGON,HUMAN RECOMB 1 MG INJ IM PRN (20:41)
[2018-08-18] MEDS: DONEPEZIL HCL 5 MG TABLET PO SCH (21:56)
[2018-08-18] MEDS: FERROUS SULFATE 325 MG TABLET PO SCH (21:56)
[2018-08-18] MEDS: MIRTAZAPINE 15 MG TABLET PO SCH (21:57)
[2018-08-18] MEDS: GABAPENTIN 100 MG CAPSULE PO SCH (21:57)
[2018-08-18] MEDS: TRAMADOL HCL 50 MG TABLET PO SCH (21:57)
[2018-08-18] MEDS: INSULIN LISPRO 100 UNIT/ML 3 ML VIAL SUBCUT PRN (21:57)
[2018-08-18] MEDS ORDERED: GENTAMICIN SULFATE 0.3% OPH OINT 3.5 GM OU SCH (22:00)
[2018-08-18] MEDS: HUM INSULIN NPH/REG INSULIN HM 100 UNIT/1 ML 3 ML SUBCUT SCH (22:00)
[2018-08-18] MEDS ORDERED: (PENDING PHARMACY ID) (Donepezil Hcl [Aricept] 10 MG) PO SCH (22:00)
[2018-08-18] MEDS: LATANOPROST 0.005% OPH SOLN 2.5 ML OU SCH (22:00)
[2018-08-18] MEDS ORDERED: (PENDING PHARMACY ID) (Midodrine Hcl [Midodrine Hcl] 10 MG) PO SCH (22:00)
[2018-08-18] MEDS ORDERED: PROPYLENE GLYCOL OU SCH (22:00)
[2018-08-18] MEDS ORDERED: [UNRECOGNIZED DRUG - OTHER] OU SCH (22:00)
[2018-08-18] MEDS ORDERED: PEG OU SCH (22:00)
[2018-08-18] MEDS: CARBOXYMETHYLCELLULOSE SOD 0.5% 0.4 ML DROPERETTE OU SCH (22:00)
[2018-08-18] MEDS: VANCOMYCIN HCL 1,500 MG in DEXTROSE 5%-WATER 250 ML IV SCH (22:02)
[2018-08-19] MEDS ORDERED: (PENDING PHARMACY ID) (Vancomycin Hcl In 5 % Dextrose [Vancomycin 1 Gram/250 Ml-D5w] 1 GM) IV SCH ×2
[2018-08-19] MEDS ORDERED: VANCOMYCIN HCL 500 MG in DEXTROSE 5%-WATER 100 ML IV PRN (05:00)
[2018-08-19] MEDS: LANSOPRAZOLE 15 MG TAB.RAP.DR PO SCH (05:11)
[2018-08-19] MEDS: MIDODRINE HCL 5 MG TABLET PO SCH ×2 (05:11→17:56)
[2018-08-19] MEDS: LACTATED RINGERS 1000 ML IV PRN ×2 (05:22→16:28)
[2018-08-19 05:52] LABS: INTERNATIONAL RATION (INR) 0.98; PROTHROMBIN TIME 13.5 SEC (11.4-15.4)
[2018-08-19 05:53] LABS: PARTIAL THROMBOPLASTIN TIME 32.1 SEC (23.5-35.8)
[2018-08-19] MEDS ORDERED: LIDOCAINE 0.5% INJ-PF (5 MG/ML) 50 ML SDV ONE (07:50)
[2018-08-19] MEDS ORDERED: BACITRACIN INJ 50,000 UNIT VIAL ONE (07:50)
[2018-08-19] MEDS ORDERED: BUPIVACAINE HCL 0.5 % INJ/PF 30 ML SDV ONE (07:50)
[2018-08-19] MEDS ORDERED: SUCCINYLCHOLINE CHLORIDE INJ 200 MG/10 ML VIAL ONE (08:31)
[2018-08-19] MEDS ORDERED: GENTAMICIN SULFATE 0.3% OPH OINT 3.5 GM OU SCH (10:00)
[2018-08-19] MEDS ORDERED: TETRACYCLINE HCL 250 MG PO SCH ×2 (10:00→18:00)
[2018-08-19] MEDS ORDERED: MIDAZOLAM 2 MG/2 ML INJ ONE (10:34)
[2018-08-19] MEDS ORDERED: FENTANYL CITRATE INJ/PF 100 MCG/2 ML AMPUL ONE (10:34)
[2018-08-19] MEDS ORDERED: EPHEDRINE SULFATE INJ 50 MG/1 ML AMPULE ONE (10:34)
[2018-08-19] MEDS ORDERED: PROPOFOL INJ 200 MG/20 ML VIAL IV ONE (10:34)
[2018-08-19] MEDS: FERROUS SULFATE 325 MG TABLET PO SCH (11:02)
[2018-08-19] MEDS: TAMSULOSIN HCL 0.4 MG CAP.SR.24H PO SCH (11:02)
[2018-08-19] MEDS: FOLIC ACID/VITAMIN B COMP W-C CAPSULE PO SCH (11:03)
[2018-08-19] MEDS: CARBOXYMETHYLCELLULOSE SOD 0.5% 0.4 ML DROPERETTE OU SCH ×3 (11:03→17:57)
[2018-08-19] MEDS: TRAMADOL HCL 50 MG TABLET PO SCH (11:03)
[2018-08-19] MEDS ORDERED: MEPERIDINE HCL/PF INJ 25 MG/1 ML DISP.SYRIN IV PRN (11:48)
[2018-08-19] MEDS ORDERED: MORPHINE SULFATE 10 MG/ML INJ IV PRN ×2 (11:48→17:51)
[2018-08-19] MEDS ORDERED: DIPHENHYDRAMINE HCL 50 MG/ML VIAL IV PRN (11:48)
[2018-08-19] MEDS ORDERED: FENTANYL CITRATE INJ/PF 100 MCG/2 ML AMPUL IV PRN ×3 (11:48)
[2018-08-19] MEDS ORDERED: OXYCODONE-ACETAMINOPHEN 5-325 MG TABLET PO PRN ×2 (11:48)
[2018-08-19] MEDS ORDERED: PROMETHAZINE HCL INJ 25 MG/1 ML VIAL IV PRN ×2 (11:48)
[2018-08-19] MEDS ORDERED: ACETAMINOPHEN 1,000 MG/100 ML RTUPB IV ONE (13:22)
[2018-08-19] MEDS ORDERED: HYDROMORPHONE HCL INJ/PF 2 MG/ML AMPULE ONE (13:22)
[2018-08-19] MEDS ORDERED: INSULIN LISPRO 100 UNIT/ML 3 ML VIAL ONE (13:49)
--- NOTE | 2018-08-19 14:55 | Operative Report ---
Operative Report DATE OF SURGERY: 08/19/18 PREOPERATIVE DIAGNOSIS: 1. Necrosis and infection in the left foot. 2. Severe peripheral vascular disease, non reconstructable. 3. Diabetes mellitus type 2. POSTOPERATIVE DIAGNOSIS: 1. Necrosis and infection in the left foot. 2. Severe peripheral vascular disease, non reconstructable. 3. Diabetes mellitus type 2. OPERATION: Left below-knee amputation. SURGEON: KIM NELSON FLOOR WAXER: None. ANESTHESIA: GA TISSUE REMOVED OR ALTERED: Left lower extremity below knee. COMPLICATIONS: None. ESTIMATED BLOOD LOSS: 500 mils. INTRAOPERATIVE FINDINGS: Of healthy tissues at the level of amputation. Major arteries were mostly occluded but it was profuse collaterals and nice pink, active muscle. Skin edges satisfactory. Considerable collateral bleeding controlled with cautery, suture ligatures of 3-0 and 2-0 PDS. Indication: This patient has had necrosis and infection in his left great toe for some time. Worsening gradually. An evaluation with Dr. Soham Gupta is confirmed that there is no further vascular option. He has had a number of angioplasties in the subsequent years. At this point we have come to the end of conservative management. The patient firmly wishes to have the leg removed. So that he can get on with his life. He is aware of the risks, benefits, expected outcome and alternatives as are his family. They wish to proceed. PROCEDURE: The right lower extremity was prepared with chlorhexidine from the upper thigh down to the lower leg it was draped out with sterile linen. After the universal timeout, in which it was verified that the patient continued to get IV antibiotic and it was the right lower extremity that was to be removed, the procedure commenced. A marking pen was used to sketch a relatively short anterior and a long posterior flap. The incision was now made anteriorly from the vicinity of the medial tibia the tibia to the lateral fibula. The uppermost portions of the flap, previously marked were now incised. Dissection proceeded through the investing fascia and the muscular tissues down to the interosseous membrane. The dissection was done with scalpel and with cautery as indicated. Hemostasis was obtained using using cautery were indicated the anterior tibial group of vessels were encountered and doubly clamped divided and suture ligated with 2-0 PDS suture. The periosteum of the tibia was now incised circumferentially and raised a good 3 cm above the level of the skin amputation. The soft tissues were protected with moist laps and a electric saw used to incise the tibia describing an oblique angle superiorly so as to reduce the anterior edge of the tibia and then straight posteriorly. The fibula was now approached similarly. It was decided because of this very muscular man to transect the fibula initially. The periosteum was incised incised circumferentially and raised using a periosteal elevator. The fibula was transected using a electric saw. This allowed access to the posterior group of muscles which are transected including the soleus. The gastrocnemius muscle was left intact. The peroneal and the posterior tibial group of vessels were encountered sequentially. Each was doubly clamped and divided and suture ligated with 2-0 PDS. The nerves when encountered were anesthetized with dilute lidocaine and bupivacaine. Dissection now proceeded inferiorly and the skin flap was now completed. The specimen was thus entirely removed and submitted for pathology. A good portion of time was not taken in obtaining meticulous hemostasis. This was done using hemostats and sutures of 30 and 2-0 PDS. Smaller bleeders were controlled with cautery. Having controlled the bleeding in the posterior flap, the fibula was now further transected after raising the periosteum above the level of the tibia. It is transected with an electric saw. Once again the wound was carefully inspected irrigated, with antibiotic containing solution and careful hemostasis checked for and assured. Having done so the wound was now closed in an osteo-myoplastic fashion. First the periosteum over the tibia was approximated to the investing fascia of the posterior flap. This was done at the tibia and then the fascial approximation continued to the lateral and medial aspects of the incision. This was done with interrupted sutures of 2-0 PDS the skin was now approximated with gypsy in a tension-free fashion. Xeroform form was now applied to the wound followed by a VAC. The VAC was now applied to suction. Once this was achieved a posterior plaster splint was now made and protected with at least 8 layers of Webril. It was applied over the stump and to just above the knee and posteriorly quite long. It was held in place with a layer of Kerlix and then a layer of Elijah wraps. The splint was further anchored using tape. The procedure was now concluded. Copies dictated operative report to Dr. Kim Kennedy MD.
--- NOTE | 2018-08-19 15:04 | PDOC PROGRESS REPORT ---
Subjective Progress Note for:: 08/19/18 Subjective:: Patient just arrived from OR after having left BKA for nonhealing left foot ulcer. Patient has been treated medically for his left foot ulcer but it is nonhealing and unsalvageable. I seen patient awake alert and he does not complain pain. Reason For Visit: LEFT BELOW THE KNEE AMPUTATION Physical Exam Vital Signs: Temp Pulse Resp BP Pulse Ox 97.8 F 81 15 146/55 H 99 08/19/18 07:56 08/19/18 07:56 08/19/18 07:56 08/19/18 07:56 08/19/18 07:56 Intake & Output 08/18/18 08/19/18 08/20/18 06:59 06:59 06:59 Intake Total 250 1020 Output Total 300 1170 Balance -50 -150 Weight 62.3 kg General appearance: PRESENT: no acute distress Eye exam: PRESENT: conjunctiva pink Mouth exam: PRESENT: moist Neck exam: ABSENT: carotid bruit, JVD, lymphadenopathy, thyromegaly Respiratory exam: PRESENT: clear to auscultation casey. ABSENT: rales, rhonchi, wheezes Cardiovascular exam: PRESENT: RRR. ABSENT: diastolic murmur, rubs, systolic murmur GI/Abdominal exam: PRESENT: normal bowel sounds, soft. ABSENT: distended, guarding, mass, organolmegaly, rebound, tenderness Extremities exam: PRESENT: other - Left BKA Neurological exam: PRESENT: alert, awake Results Laboratory Results: 08/18/18 18:03 08/18/18 18:03 08/18/18 08/18/18 18:03 18:03 WBC 7.5 RBC 3.78 L Hgb 11.7 L Hct 33.6 L MCV 89 MCH 30.9 MCHC 34.8 RDW 14.3 H Plt Count 254 Sodium 136.7 L Potassium 4.3 Chloride 100 Carbon Dioxide 26 Anion Gap 11 BUN 19 Creatinine 1.14 Est GFR ( Amer) > 60 Est GFR (Non-Af Amer) > 60 Glucose 281 H Calcium 9.9 Impressions: Chest X-Ray 08/18/18 00:00 IMPRESSION: NO ACUTE RADIOGRAPHIC FINDING IN THE CHEST. Assessment & Plan - Diagnosis (1) Non-healing ulcer of left foot Is this a current diagnosis for this admission?: Yes Plan: The foot is unsalvageable so patient has left BKA. His immediate postop is smooth. (2) Chronic kidney disease, stage III (moderate) Is this a current diagnosis for this admission?: Yes Plan: His creatinine is trending down. We will avoid nephrotoxic agents. (3) Neurogenic bladder Is this a current diagnosis for this admission?: Yes Plan: Patient has chronic suprapubic indwelling Fajardo catheter. (4) Diabetes mellitus with peripheral artery disease Is this a current diagnosis for this admission?: Yes Plan: Patient has type 2 diabetes mellitus. Continue current regimen. (5) Hypothyroidism (acquired) Is this a current diagnosis for this admission?: Yes Plan: Continue Synthroid (6) Dementia Qualifiers: Dementia type: unspecified type Dementia behavioral disturbance: without behavioral disturbance Qualified Code(s): F03.90 - Unspecified dementia without behavioral disturbance Is this a current diagnosis for this admission?: Yes Plan: Home medications.
[2018-08-19] MEDS: INSULIN LISPRO 100 UNIT/ML 3 ML VIAL SUBCUT PRN (17:55)
[2018-08-20] MEDS: VANCOMYCIN HCL 1,500 MG in DEXTROSE 5%-WATER 250 ML IV SCH ×2 (00:02→22:40)
[2018-08-20] MEDS: GABAPENTIN 100 MG CAPSULE PO SCH ×2 (00:03→22:40)
[2018-08-20] MEDS: CARBOXYMETHYLCELLULOSE SOD 0.5% 0.4 ML DROPERETTE OU SCH ×5 (00:03→22:41)
[2018-08-20] MEDS: FERROUS SULFATE 325 MG TABLET PO SCH ×3 (00:03→22:35)
[2018-08-20] MEDS: TRAMADOL HCL 50 MG TABLET PO SCH ×3 (00:04→22:35)
[2018-08-20] MEDS: MIRTAZAPINE 15 MG TABLET PO SCH ×2 (00:04→22:41)
[2018-08-20] MEDS: HUM INSULIN NPH/REG INSULIN HM 100 UNIT/1 ML 3 ML SUBCUT SCH ×3 (00:04→22:37)
[2018-08-20] MEDS: DONEPEZIL HCL 5 MG TABLET PO SCH ×2 (00:04→22:36)
[2018-08-20] MEDS: LATANOPROST 0.005% OPH SOLN 2.5 ML OU SCH ×2 (00:05→22:40)
[2018-08-20 05:49] LABS: HEMATOCRIT 27.8 % (37.9-51.0); HEMOGLOBIN 9.8 g/dL (13.5-17.0); MEAN CORPUSCULAR HEMOGLOBIN 31.1 pg (27.0-33.4); MEAN CORPUSCULAR HGB CONC 35.2 g/dL (32.0-36.0); MEAN CORPUSCULAR VOLUME 89 fl (80-97); PLATELET COUNT 248 10^3/uL (150-450); RED BLOOD COUNT 3.14 10^6/uL (4.35-5.55); RED CELL DISTRIBUTION WIDTH 13.7 % (11.5-14.0); WHITE BLOOD COUNT 11.9 10^3/uL (4.0-10.5)
[2018-08-20 06:17] LABS: ANION GAP 11 (5-19); BLOOD UREA NITROGEN 18 mg/dL (7-20); CALCIUM 9.7 mg/dL (8.4-10.2); CARBON DIOXIDE 25 mmol/L (22-30); CHLORIDE 102 mmol/L (98-107); GLUCOSE 169 mg/dL (75-110); POTASSIUM 4.2 mmol/L (3.6-5.0); SODIUM 137.6 mmol/L (137-145)
[2018-08-20] MEDS: LANSOPRAZOLE 15 MG TAB.RAP.DR PO SCH (06:22)
[2018-08-20] MEDS: MIDODRINE HCL 5 MG TABLET PO SCH ×2 (06:22→17:58)
[2018-08-20] MEDS ORDERED: FOLIC ACID/VITAMIN B COMP W-C CAPSULE PO SCH (10:00)
[2018-08-20] MEDS: FOLIC ACID/VITAMIN B COMP W-C CAPSULE PO SCH (10:17)
[2018-08-20] MEDS: LEVOTHYROXINE SODIUM 0.15 MG TABLET PO SCH (10:17)
[2018-08-20] MEDS: FINASTERIDE 5 MG TABLET PO SCH (10:17)
[2018-08-20] MEDS: TAMSULOSIN HCL 0.4 MG CAP.SR.24H PO SCH (10:18)
[2018-08-20] MEDS: CLOPIDOGREL BISULFATE 75 MG TABLET PO SCH (10:18)
[2018-08-20] MEDS: FENOFIBRATE NANOCRYSTALLIZED 48 MG TABLET PO SCH (10:20)
--- NOTE | 2018-08-20 13:48 | PDOC PROGRESS REPORT ---
Subjective Progress Note for:: 08/20/18 Subjective:: I seen patient lying in bed. He is awake alert not in pain or distress. He has mild hypothermia with temperature of 97. He is wound culture from his left foot grew gram-positive cocci in cluster. The septic focus had been removed after the left BKA. Currently patient is getting IV vancomycin. Reason For Visit: LEFT BELOW THE KNEE AMPUTATION Physical Exam Vital Signs: Temp Pulse Resp BP Pulse Ox 97.5 F 89 20 114/50 L 98 08/20/18 09:41 08/20/18 09:41 08/20/18 09:41 08/20/18 09:41 08/20/18 12:27 Intake & Output 08/19/18 08/20/18 08/21/18 06:59 06:59 06:59 Intake Total 250 3370 Output Total 300 1970 Balance -50 1400 Weight 62.3 kg 62.3 kg General appearance: PRESENT: no acute distress Head exam: PRESENT: atraumatic Neck exam: PRESENT: carotid bruit Respiratory exam: PRESENT: clear to auscultation casey. ABSENT: rales, rhonchi, wheezes Cardiovascular exam: PRESENT: RRR. ABSENT: diastolic murmur, rubs, systolic murmur GI/Abdominal exam: PRESENT: normal bowel sounds, soft. ABSENT: distended, guarding, mass, organolmegaly, rebound, tenderness Neurological exam: PRESENT: alert, awake Results Laboratory Results: 08/20/18 05:21 08/20/18 05:21 08/20/18 08/20/18 05:21 05:21 WBC 11.9 H RBC 3.14 L Hgb 9.8 L Hct 27.8 L MCV 89 MCH 31.1 MCHC 35.2 RDW 13.7 Plt Count 248 Sodium 137.6 Potassium 4.2 Chloride 102 Carbon Dioxide 25 Anion Gap 11 BUN 18 Creatinine 1.21 Est GFR ( Amer) > 60 Est GFR (Non-Af Amer) 58 L Glucose 169 H Calcium 9.7 Impressions: Chest X-Ray 08/18/18 00:00 IMPRESSION: NO ACUTE RADIOGRAPHIC FINDING IN THE CHEST. Assessment & Plan - Diagnosis (1) Non-healing ulcer of left foot Is this a current diagnosis for this admission?: Yes Plan: The foot is unsalvageable so patient has left BKA. His immediate postop is smooth. (2) Chronic kidney disease, stage III (moderate) Is this a current diagnosis for this admission?: Yes Plan: His creatinine is trending down. We will avoid nephrotoxic agents. (3) Neurogenic bladder Is this a current diagnosis for this admission?: Yes Plan: Patient has chronic suprapubic indwelling Fajardo catheter. (4) Diabetes mellitus with peripheral artery disease Is this a current diagnosis for this admission?: Yes Plan: Patient has type 2 diabetes mellitus. Continue current regimen. (5) Hypothyroidism (acquired) Is this a current diagnosis for this admission?: Yes Plan: Continue Synthroid (6) Dementia Qualifiers: Dementia type: unspecified type Dementia behavioral disturbance: without behavioral disturbance Qualified Code(s): F03.90 - Unspecified dementia without behavioral disturbance Is this a current diagnosis for this admission?: Yes Plan: Home medications.
--- NOTE | 2018-08-20 16:54 | PDOC PROGRESS REPORT ---
Subjective Progress Note for:: 08/20/18 Subjective:: Postoperative day #1 after left [id number] amputation. Reason For Visit: LEFT BELOW THE KNEE AMPUTATION Date of visit after left. The patient has been stable resting quietly somewhat less interactive than he normally is. Family may have visited during the day. Physical Exam Vital Signs: Temp Pulse Resp BP Pulse Ox 99.3 F 89 24 H 108/66 98 08/20/18 12:00 08/20/18 12:00 08/20/18 12:00 08/20/18 12:00 08/20/18 12:27 Intake & Output 08/19/18 08/20/18 08/21/18 06:59 06:59 06:59 Intake Total 250 3370 Output Total 300 1970 Balance -50 1400 Weight 62.3 kg 62.3 kg Additional comments: Constitutional: Well-developed well-nourished -[place] gentleman. No apparent acute distress. Sleeping quietly. Respiratory: Normal respiratory effort. Psychiatric: Not evaluated. . Lower extremities show left below-knee amputation dressings in place. Clean. Results Laboratory Results: 08/20/18 05:21 08/20/18 05:21 08/20/18 08/20/18 05:21 05:21 WBC 11.9 H RBC 3.14 L Hgb 9.8 L Hct 27.8 L MCV 89 MCH 31.1 MCHC 35.2 RDW 13.7 Plt Count 248 Sodium 137.6 Potassium 4.2 Chloride 102 Carbon Dioxide 25 Anion Gap 11 BUN 18 Creatinine 1.21 Est GFR ( Amer) > 60 Est GFR (Non-Af Amer) 58 L Glucose 169 H Calcium 9.7 Impressions: Chest X-Ray 08/18/18 00:00 IMPRESSION: NO ACUTE RADIOGRAPHIC FINDING IN THE CHEST. 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 (2) Diabetes mellitus with peripheral artery disease Is this a current diagnosis for this admission?: Yes (3) Chronic kidney disease, stage III (moderate) Is this a current diagnosis for this admission?: Yes (4) Diabetes mellitus Qualifiers: Diabetes mellitus type: type 2 Diabetes mellitus longterm insulin use: with long term care pharmacist use Diabetes mellitus complication status: with kidney complications Diabetes mellitus complication detail: with chronic kidney disease Chronic kidney disease stage: stage 3 (moderate) Qualified Code(s): E11.22 - Type 2 diabetes mellitus with diabetic chronic kidney disease; N18.3 - Chronic kidney disease, stage 3 (moderate); N18.3 - Chronic kidney disease, stage 3 (moderate); N18.3 - Chronic kidney disease, stage 3 (moderate); Z79.4 - long term care administrator (current) use of insulin; Z79.4 - residential (current) use of insulin; Z79.4 - residential (current) use of insulin; Z79.4 - long term care administrator (current) use of insulin Is this a current diagnosis for this admission?: Yes (5) HTN (hypertension) Qualifiers: Hypertension type: essential hypertension Qualified Code(s): I10 - Essential (primary) hypertension Is this a current diagnosis for this admission?: Yes (6) History of MRSA infection Is this a current diagnosis for this admission?: Yes - Plan Summary Plan Summary: Overall reasonable recovery so far in this elderly gentleman with multiple comorbidities. Hemoglobin down to 9.8 from 13.5 before. We will start the patient on oral iron with vitamins. Also Megace for his reduced appetite. Family involvement solicited.
[2018-08-20] MEDS: INSULIN LISPRO 100 UNIT/ML 3 ML VIAL SUBCUT PRN ×2 (18:09→22:37)
[2018-08-21] MEDS: MIDODRINE HCL 5 MG TABLET PO SCH ×2 (06:15→17:08)
[2018-08-21] MEDS: LANSOPRAZOLE 15 MG TAB.RAP.DR PO SCH (06:17)
[2018-08-21] MEDS: HUM INSULIN NPH/REG INSULIN HM 100 UNIT/1 ML 3 ML SUBCUT SCH ×2 (07:54→22:49)
[2018-08-21] MEDS ORDERED: MEGESTROL ACETATE SUSP 400 MG/10 ML UDCUP PO PRN (08:18)
[2018-08-21] MEDS: FOLIC ACID/VITAMIN B COMP W-C CAPSULE PO SCH (09:15)
[2018-08-21] MEDS: TRAMADOL HCL 50 MG TABLET PO SCH ×2 (09:15→22:51)
[2018-08-21] MEDS: CARBOXYMETHYLCELLULOSE SOD 0.5% 0.4 ML DROPERETTE OU SCH ×4 (09:16→22:47)
[2018-08-21] MEDS: FINASTERIDE 5 MG TABLET PO SCH (09:16)
[2018-08-21] MEDS: LEVOTHYROXINE SODIUM 0.15 MG TABLET PO SCH (09:16)
[2018-08-21] MEDS: FENOFIBRATE NANOCRYSTALLIZED 48 MG TABLET PO SCH (09:16)
[2018-08-21] MEDS: CLOPIDOGREL BISULFATE 75 MG TABLET PO SCH (09:16)
[2018-08-21] MEDS: MULTIVITAMIN TABLET PO SCH (09:17)
[2018-08-21] MEDS: FERROUS SULFATE 325 MG TABLET PO SCH ×2 (09:17→22:51)
[2018-08-21] MEDS: TAMSULOSIN HCL 0.4 MG CAP.SR.24H PO SCH (09:17)
--- NOTE | 2018-08-21 11:13 | PDOC PROGRESS REPORT ---
Subjective Progress Note for:: 08/21/18 Subjective:: I seen patient propped up in bed and being fed by patient technician telecommunication systems. No significant event overnight. Reason For Visit: LEFT BELOW THE KNEE AMPUTATION Physical Exam Vital Signs: Temp Pulse Resp BP Pulse Ox 98.8 F 77 15 111/50 L 99 08/21/18 07:41 08/21/18 07:41 08/21/18 07:41 08/21/18 07:41 08/21/18 07:41 Intake & Output 08/20/18 08/21/18 08/22/18 06:59 06:59 06:59 Intake Total 3370 418 Output Total 1970 500 Balance 1400 -82 Weight 62.3 kg 64.4 kg General appearance: PRESENT: no acute distress Mouth exam: PRESENT: moist Neck exam: ABSENT: carotid bruit, JVD, lymphadenopathy, thyromegaly Respiratory exam: PRESENT: clear to auscultation casey. ABSENT: rales, rhonchi, wheezes Cardiovascular exam: PRESENT: RRR. ABSENT: diastolic murmur, rubs, systolic murmur Neurological exam: PRESENT: alert, awake Results Laboratory Results: 08/20/18 05:21 08/20/18 05:21 Impressions: Chest X-Ray 08/18/18 00:00 IMPRESSION: NO ACUTE RADIOGRAPHIC FINDING IN THE CHEST. Assessment & Plan - Diagnosis (1) Non-healing ulcer of left foot Is this a current diagnosis for this admission?: Yes Plan: The foot is unsalvageable so patient has left BKA. His immediate postop is smooth. (2) Chronic kidney disease, stage III (moderate) Is this a current diagnosis for this admission?: Yes Plan: His creatinine is trending down. We will avoid nephrotoxic agents. (3) Neurogenic bladder Is this a current diagnosis for this admission?: Yes Plan: Patient has chronic suprapubic indwelling Fajardo catheter. (4) Diabetes mellitus with peripheral artery disease Is this a current diagnosis for this admission?: Yes Plan: Patient has type 2 diabetes mellitus. Continue current regimen. (5) Hypothyroidism (acquired) Is this a current diagnosis for this admission?: Yes Plan: Continue Synthroid (6) Dementia Qualifiers: Dementia type: unspecified type Dementia behavioral disturbance: without behavioral disturbance Qualified Code(s): F03.90 - Unspecified dementia without behavioral disturbance Is this a current diagnosis for this admission?: Yes Plan: Home medications.
[2018-08-21] MEDS: INSULIN LISPRO 100 UNIT/ML 3 ML VIAL SUBCUT PRN (17:20)
[2018-08-21 22:10] LABS: VANCOMYCIN,TROUGH 20.8 ug/mL (5.0-20.0)
[2018-08-21] MEDS: VANCOMYCIN HCL 1,500 MG in DEXTROSE 5%-WATER 250 ML IV SCH (22:38)
[2018-08-21] MEDS: LATANOPROST 0.005% OPH SOLN 2.5 ML OU SCH (22:47)
[2018-08-21] MEDS: GABAPENTIN 100 MG CAPSULE PO SCH (22:51)
[2018-08-21] MEDS: DONEPEZIL HCL 5 MG TABLET PO SCH (22:51)
[2018-08-21] MEDS: MIRTAZAPINE 15 MG TABLET PO SCH (22:53)
[2018-08-22 05:16] LABS: HEMATOCRIT 26.6 % (37.9-51.0); HEMOGLOBIN 9.1 g/dL (13.5-17.0); MEAN CORPUSCULAR HGB CONC 34.3 g/dL (32.0-36.0); MEAN CORPUSCULAR VOLUME 90 fl (80-97); PLATELET COUNT 226 10^3/uL (150-450); RED BLOOD COUNT 2.95 10^6/uL (4.35-5.55); WHITE BLOOD COUNT 8.6 10^3/uL (4.0-10.5)
[2018-08-22] MEDS: LANSOPRAZOLE 15 MG TAB.RAP.DR PO SCH (05:32)
[2018-08-22] MEDS: MIDODRINE HCL 5 MG TABLET PO SCH ×2 (05:32→17:29)
[2018-08-22] MEDS: HUM INSULIN NPH/REG INSULIN HM 100 UNIT/1 ML 3 ML SUBCUT SCH ×2 (08:36→22:12)
[2018-08-22] MEDS: VANCOMYCIN HCL 1,000 MG in DEXTROSE 5%-WATER 250 ML IV SCH (08:45)
--- NOTE | 2018-08-22 08:56 | PDOC PROGRESS REPORT ---
Subjective Progress Note for:: 08/21/18 Subjective:: This note is for postoperative day #2 after left below-knee amputation. The patient is more alert communicative and denies any significant discomfort. His is present and quite pleased with his progress so far. Reason For Visit: LEFT BELOW THE KNEE AMPUTATION Daily visit. Physical Exam Vital Signs: Temp Pulse Resp BP Pulse Ox 99.5 F 80 17 116/53 L 95 08/21/18 15:33 08/21/18 15:33 08/21/18 15:33 08/21/18 15:33 08/21/18 15:33 Intake & Output 08/20/18 08/21/18 08/22/18 06:59 06:59 06:59 Intake Total 3370 418 193 Output Total 1970 500 325 Balance 1400 -82 -132 Weight 62.3 kg 64.4 kg Additional comments: Constitutional: Well-developed well-nourished gentleman. No apparent acute distress. Eyes: Mucous membranes pink and moist, pupils equal and reactive to light. Conjunctiva normal. Cornea normal. ENT: Hearing grossly normal. External pinna normal to inspection. Teeth intact. Tongue normal to inspection. Respiratory: Normal respiratory effort. S Psychiatric: Judgment, memory, insight seem normal. Mood is pleasant and appropriate. Extremities: Upper extremities show normal range of movement. Pulses present noted to the radial arteries. Capillary refill normal. No cyanosis noted. No muscle wasting noted. Lower extremities left lower extremity dressing from BKA in place. Quite clean and dry. Cast in place. Results Laboratory Results: 08/20/18 05:21 08/20/18 05:21 08/18/18 18:50 Toe - Diabetic Ulcer Gram Stain - Final 08/18/18 18:50 Toe - Diabetic Ulcer Wound Culture - Final Mrsa (Meth Resis Staph Aureus) Impressions: Chest X-Ray 08/18/18 00:00 IMPRESSION: NO ACUTE RADIOGRAPHIC FINDING IN THE CHEST. 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 Qualified Code(s): Z89.512 - Acquired absence of left leg below knee Is this a current diagnosis for this admission?: Yes (2) Diabetes mellitus with peripheral artery disease Is this a current diagnosis for this admission?: Yes (3) Chronic kidney disease, stage III (moderate) Is this a current diagnosis for this admission?: Yes (4) Diabetes mellitus Qualifiers: Diabetes mellitus type: type 2 Diabetes mellitus analysis specialist insulin use: with half-way use Diabetes mellitus complication status: with kidney complications Diabetes mellitus complication detail: with chronic kidney disease Chronic kidney disease stage: stage 3 (moderate) Qualified Code(s): E11.22 - Type 2 diabetes mellitus with diabetic chronic kidney disease; N18.3 - Chronic kidney disease, stage 3 (moderate); N18.3 - Chronic kidney disease, stage 3 (moderate); N18.3 - Chronic kidney disease, stage 3 (moderate); Z79.4 - correction (current) use of insulin; Z79.4 - tractor driver teamster (current) use of insulin; Z79.4 - correction (current) use of insulin; Z79.4 - tractor driver teamster (current) use of insulin Is this a current diagnosis for this admission?: Yes (5) HTN (hypertension) Qualifiers: Hypertension type: essential hypertension Qualified Code(s): I10 - Essential (primary) hypertension Is this a current diagnosis for this admission?: Yes (6) History of MRSA infection Is this a current diagnosis for this admission?: Yes - Plan Summary Plan Summary: The patient has improved considerably and postoperative day 2. He is eating more, about 50% of his requirement, noted much not much discomfort. Still significantly anemic. Early discharge is hoped for. This patient is quite frail and optimal packaging before discharge to the [facility] is necessary to prevent readmission or compromise. Anticipate discharge on Saturday of next week. Or before if his progress is satisfactory.
[2018-08-22] MEDS: FERROUS SULFATE 325 MG TABLET PO SCH ×2 (09:24→22:08)
[2018-08-22] MEDS: MULTIVITAMIN TABLET PO SCH (09:24)
[2018-08-22] MEDS: TRAMADOL HCL 50 MG TABLET PO SCH ×2 (09:24→21:58)
[2018-08-22] MEDS: TAMSULOSIN HCL 0.4 MG CAP.SR.24H PO SCH (09:24)
[2018-08-22] MEDS: CLOPIDOGREL BISULFATE 75 MG TABLET PO SCH (09:24)
[2018-08-22] MEDS: FINASTERIDE 5 MG TABLET PO SCH (09:24)
[2018-08-22] MEDS: FENOFIBRATE NANOCRYSTALLIZED 48 MG TABLET PO SCH (09:24)
[2018-08-22] MEDS: LEVOTHYROXINE SODIUM 0.15 MG TABLET PO SCH (09:24)
[2018-08-22] MEDS: FOLIC ACID/VITAMIN B COMP W-C CAPSULE PO SCH (09:24)
[2018-08-22] MEDS: CARBOXYMETHYLCELLULOSE SOD 0.5% 0.4 ML DROPERETTE OU SCH ×4 (09:25→21:58)
--- NOTE | 2018-08-22 13:47 | PDOC PROGRESS REPORT ---
Subjective Progress Note for:: 08/22/18 Subjective:: No new complaint. Patient eats well and tolerates well. His pain is well controlled. Reason For Visit: LEFT BELOW THE KNEE AMPUTATION Physical Exam Vital Signs: Temp Pulse Resp BP Pulse Ox 98.8 F 79 20 108/54 L 100 08/22/18 11:50 08/22/18 11:50 08/22/18 11:50 08/22/18 11:50 08/22/18 11:50 Intake & Output 08/21/18 08/22/18 08/23/18 06:59 06:59 06:59 Intake Total 418 459 250 Output Total 500 1325 Balance -82 -866 250 Weight 64.4 kg 64.8 kg General appearance: PRESENT: no acute distress Head exam: PRESENT: atraumatic Eye exam: PRESENT: conjunctiva pink. ABSENT: scleral icterus Mouth exam: PRESENT: moist Neck exam: ABSENT: carotid bruit, JVD, lymphadenopathy, thyromegaly Respiratory exam: ABSENT: rales, rhonchi, wheezes Cardiovascular exam: PRESENT: RRR. ABSENT: diastolic murmur, rubs, systolic murmur Pulses: PRESENT: normal dorsalis pedis pul Vascular exam: PRESENT: normal capillary refill GI/Abdominal exam: PRESENT: normal bowel sounds, soft. ABSENT: distended, guarding, mass, organolmegaly, rebound, tenderness Neurological exam: PRESENT: alert, awake. ABSENT: motor sensory deficit Psychiatric exam: ABSENT: homicidal ideation, suicidal ideation Skin exam: ABSENT: cyanosis, rash Results Laboratory Results: 08/22/18 04:14 08/21/18 21:40 08/21/18 08/22/18 21:40 04:14 WBC 8.6 RBC 2.95 L Hgb 9.1 L Hct 26.6 L MCV 90 MCH 31.0 MCHC 34.3 RDW 14.0 Plt Count 226 Creatinine 1.28 H Est GFR ( Amer) > 60 Est GFR (Non-Af Amer) 54 L 08/18/18 18:50 Toe - Diabetic Ulcer Gram Stain - Final 08/18/18 18:50 Toe - Diabetic Ulcer Wound Culture - Final Mrsa (Meth Resis Staph Aureus) Impressions: Chest X-Ray 08/18/18 00:00 IMPRESSION: NO ACUTE RADIOGRAPHIC FINDING IN THE CHEST. Assessment & Plan - Diagnosis (1) Non-healing ulcer of left foot Is this a current diagnosis for this admission?: Yes Plan: The foot is unsalvageable so patient has left BKA. His immediate postop is smooth. (2) Chronic kidney disease, stage III (moderate) Is this a current diagnosis for this admission?: Yes Plan: His creatinine is trending down. We will avoid nephrotoxic agents. (3) Neurogenic bladder Is this a current diagnosis for this admission?: Yes Plan: Patient has chronic suprapubic indwelling Fajardo catheter. (4) Diabetes mellitus with peripheral artery disease Is this a current diagnosis for this admission?: Yes Plan: Patient has type 2 diabetes mellitus. Continue current regimen. (5) Hypothyroidism (acquired) Is this a current diagnosis for this admission?: Yes Plan: Continue Synthroid (6) Dementia Qualifiers: Dementia type: unspecified type Dementia behavioral disturbance: without behavioral disturbance Qualified Code(s): F03.90 - Unspecified dementia without behavioral disturbance Is this a current diagnosis for this admission?: Yes Plan: Home medications.
[2018-08-22] MEDS: GABAPENTIN 100 MG CAPSULE PO SCH (21:57)
[2018-08-22] MEDS: DONEPEZIL HCL 5 MG TABLET PO SCH (21:58)
[2018-08-22] MEDS: MIRTAZAPINE 15 MG TABLET PO SCH (21:58)
[2018-08-22] MEDS: LATANOPROST 0.005% OPH SOLN 2.5 ML OU SCH (21:59)
[2018-08-22] MEDS: INSULIN LISPRO 100 UNIT/ML 3 ML VIAL SUBCUT PRN (22:19)
[2018-08-23] MEDS: MIDODRINE HCL 5 MG TABLET PO SCH ×2 (05:16→18:01)
[2018-08-23] MEDS: LANSOPRAZOLE 15 MG TAB.RAP.DR PO SCH (05:16)
[2018-08-23] MEDS: HUM INSULIN NPH/REG INSULIN HM 100 UNIT/1 ML 3 ML SUBCUT SCH ×2 (10:47→21:35)
[2018-08-23] MEDS: TAMSULOSIN HCL 0.4 MG CAP.SR.24H PO SCH (10:48)
[2018-08-23] MEDS: LEVOTHYROXINE SODIUM 0.15 MG TABLET PO SCH (10:48)
[2018-08-23] MEDS: CLOPIDOGREL BISULFATE 75 MG TABLET PO SCH (10:48)
[2018-08-23] MEDS: FINASTERIDE 5 MG TABLET PO SCH (10:48)
[2018-08-23] MEDS: FERROUS SULFATE 325 MG TABLET PO SCH ×2 (10:48→21:34)
[2018-08-23] MEDS: FOLIC ACID/VITAMIN B COMP W-C CAPSULE PO SCH (10:48)
[2018-08-23] MEDS: MULTIVITAMIN TABLET PO SCH (10:48)
[2018-08-23] MEDS: TRAMADOL HCL 50 MG TABLET PO SCH ×2 (10:49→21:36)
[2018-08-23] MEDS: CARBOXYMETHYLCELLULOSE SOD 0.5% 0.4 ML DROPERETTE OU SCH ×4 (10:49→21:36)
[2018-08-23] MEDS: FENOFIBRATE NANOCRYSTALLIZED 48 MG TABLET PO SCH (10:50)
[2018-08-23] MEDS: VANCOMYCIN HCL 1,000 MG in DEXTROSE 5%-WATER 250 ML IV SCH (10:50)
--- NOTE | 2018-08-23 10:54 | PDOC PROGRESS REPORT ---
Subjective Progress Note for:: 08/23/18 Subjective:: No significant event overnight. Reason For Visit: LEFT BELOW THE KNEE AMPUTATION Physical Exam Vital Signs: Temp Pulse Resp BP Pulse Ox 99.4 F 69 16 119/42 L 100 08/23/18 08:38 08/23/18 08:38 08/23/18 08:38 08/23/18 08:38 08/23/18 08:38 Intake & Output 08/22/18 08/23/18 08/24/18 06:59 06:59 06:59 Intake Total 459 1583 Output Total 1325 1650 Balance -866 -67 Weight 64.8 kg 64.8 kg General appearance: PRESENT: no acute distress Mouth exam: PRESENT: moist Neck exam: ABSENT: carotid bruit, JVD, lymphadenopathy, thyromegaly Respiratory exam: PRESENT: clear to auscultation casey. ABSENT: rales, rhonchi, wheezes Cardiovascular exam: PRESENT: RRR. ABSENT: diastolic murmur, rubs, systolic murmur GI/Abdominal exam: PRESENT: normal bowel sounds, soft. ABSENT: distended, guarding, mass, organolmegaly, rebound, tenderness Neurological exam: PRESENT: alert, awake Results Laboratory Results: 08/22/18 04:14 08/21/18 21:40 Impressions: Chest X-Ray 08/18/18 00:00 IMPRESSION: NO ACUTE RADIOGRAPHIC FINDING IN THE CHEST. Assessment & Plan - Diagnosis (1) Non-healing ulcer of left foot Is this a current diagnosis for this admission?: Yes Plan: The foot is unsalvageable so patient has left BKA. His immediate postop is smooth. (2) Chronic kidney disease, stage III (moderate) Is this a current diagnosis for this admission?: Yes Plan: His creatinine is trending down. We will avoid nephrotoxic agents. (3) Neurogenic bladder Is this a current diagnosis for this admission?: Yes Plan: Patient has chronic suprapubic indwelling Fajardo catheter. (4) Diabetes mellitus with peripheral artery disease Is this a current diagnosis for this admission?: Yes Plan: Patient has type 2 diabetes mellitus. Continue current regimen. (5) Hypothyroidism (acquired) Is this a current diagnosis for this admission?: Yes Plan: Continue Synthroid (6) Dementia Qualifiers: Dementia type: unspecified type Dementia behavioral disturbance: without behavioral disturbance Qualified Code(s): F03.90 - Unspecified dementia without behavioral disturbance Is this a current diagnosis for this admission?: Yes Plan: Home medications.
[2018-08-23] MEDS: INSULIN LISPRO 100 UNIT/ML 3 ML VIAL SUBCUT PRN ×2 (11:18→18:13)
--- NOTE | 2018-08-23 14:34 | PDOC PROGRESS REPORT ---
Subjective Progress Note for:: 08/22/18 Subjective:: The patient is visit on daily hospital visits. Reason For Visit: LEFT BELOW THE KNEE AMPUTATION Follow-up and ongoing. After left below-knee amputation in this patient with multiple medical illness, a resident of a senior care. Physical Exam Vital Signs: Temp Pulse Resp BP Pulse Ox 98.6 F 76 16 112/47 L 98 08/22/18 08:00 08/22/18 08:00 08/22/18 08:00 08/22/18 08:00 08/22/18 08:00 Intake & Output 08/21/18 08/22/18 08/23/18 06:59 06:59 06:59 Intake Total 418 459 250 Output Total 500 1325 Balance -82 -866 250 Weight 64.4 kg 64.8 kg Additional comments: Constitutional: Well-developed well-nourished gentleman. No apparent acute distress. Eyes: Mucous membranes pink and moist, pupils equal and reactive to light. Conjunctiva normal. Cornea normal. Respiratory: Normal respiratory effort. Psychiatric: The patient was asleep on rounds. No distress. Lower extremities show fresh left below-knee amputation in dressing. Clean. Right old below-knee amputation unremarkable Results Laboratory Results: 08/22/18 04:14 08/21/18 21:40 08/21/18 08/22/18 21:40 04:14 WBC 8.6 RBC 2.95 L Hgb 9.1 L Hct 26.6 L MCV 90 MCH 31.0 MCHC 34.3 RDW 14.0 Plt Count 226 Creatinine 1.28 H Est GFR ( Amer) > 60 Est GFR (Non-Af Amer) 54 L 08/18/18 18:50 Toe - Diabetic Ulcer Gram Stain - Final 08/18/18 18:50 Toe - Diabetic Ulcer Wound Culture - Final Mrsa (Meth Resis Staph Aureus) Impressions: Chest X-Ray 08/18/18 00:00 IMPRESSION: NO ACUTE RADIOGRAPHIC FINDING IN THE CHEST. 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 Qualified Code(s): Z89.512 - Acquired absence of left leg below knee Is this a current diagnosis for this admission?: Yes (2) Diabetes mellitus with peripheral artery disease Is this a current diagnosis for this admission?: Yes (3) Chronic kidney disease, stage III (moderate) Is this a current diagnosis for this admission?: Yes (4) Diabetes mellitus Qualifiers: Diabetes mellitus type: type 2 Diabetes mellitus mcc insulin use: with mcc use Diabetes mellitus complication status: with kidney complications Diabetes mellitus complication detail: with chronic kidney disease Chronic kidney disease stage: stage 3 (moderate) Qualified Code(s): E11.22 - Type 2 diabetes mellitus with diabetic chronic kidney disease; N18.3 - Chronic kidney disease, stage 3 (moderate); N18.3 - Chronic kidney disease, stage 3 (moderate); N18.3 - Chronic kidney disease, stage 3 (moderate); Z79.4 - superintendent marine oil terminal (current) use of insulin; Z79.4 - superintendent marine oil terminal (current) use of insulin; Z79.4 - shelter (current) use of insulin; Z79.4 - shelter (current) use of insulin Is this a current diagnosis for this admission?: Yes (5) HTN (hypertension) Qualifiers: Hypertension type: essential hypertension Qualified Code(s): I10 - Essential (primary) hypertension Is this a current diagnosis for this admission?: Yes (6) History of MRSA infection Is this a current diagnosis for this admission?: Yes - Plan Summary Plan Summary: This patient continues to make progress and stabilizing. He continues to eat fairly well about 50% of his requirements. He is more alert although he was asleep on today's visit. His hemoglobin remains fairly low however there seems no justification for transfusion. He is on multivitamins with iron. Dressings are appropriate and the involvement of the hospitalist service is much appreciated. Dressing change and discharge is sent. For Saturday the all being well.
--- NOTE | 2018-08-23 14:48 | PDOC PROGRESS REPORT ---
Subjective Progress Note for:: 08/23/18 Subjective:: The patient is seen on daily visits status post below-knee amputation. Reason For Visit: LEFT BELOW THE KNEE AMPUTATION The patient seen on daily visits. He is alert and awake and very comfortable. His is present. Findings and plans were discussed. Physical Exam Vital Signs: Temp Pulse Resp BP Pulse Ox 97.8 F 76 24 H 121/58 L 99 08/23/18 12:42 08/23/18 12:42 08/23/18 12:42 08/23/18 12:42 08/23/18 12:42 Intake & Output 08/22/18 08/23/18 08/24/18 06:59 06:59 06:59 Intake Total 459 1583 Output Total 1325 1650 Balance -866 -67 Weight 64.8 kg 64.8 kg Additional comments: Constitutional: Well-developed well-nourished gentleman. No apparent acute distress. Eyes: Mucous membranes pink and moist, pupils equal and reactive to light. C ENT: Hearing grossly normal. External pinna normal to inspection. Teeth intact. Tongue normal to inspection. Respiratory: Normal respiratory effort. Psychiatric: Judgment, memory, insight seem normal. Mood is pleasant and appropriate. Extremities: Upper extremities show normal range of movement. Pulses present noted to the radial arteries. Capillary refill normal. No cyanosis noted. No muscle wasting noted. Lower extremities show old healed right below-knee amputation, fresh left below- knee amputation in dressings. Quite clean dressings Results Laboratory Results: 08/22/18 04:14 08/21/18 21:40 Impressions: Chest X-Ray 08/18/18 00:00 IMPRESSION: NO ACUTE RADIOGRAPHIC FINDING IN THE CHEST. 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 Qualified Code(s): Z89.512 - Acquired absence of left leg below knee Is this a current diagnosis for this admission?: Yes (2) Diabetes mellitus with peripheral artery disease Is this a current diagnosis for this admission?: Yes (3) Chronic kidney disease, stage III (moderate) Is this a current diagnosis for this admission?: Yes (4) Diabetes mellitus Qualifiers: Diabetes mellitus type: type 2 Diabetes mellitus filler leaf cutter long insulin use: with residential use Diabetes mellitus complication status: with kidney complications Diabetes mellitus complication detail: with chronic kidney disease Chronic kidney disease stage: stage 3 (moderate) Qualified Code(s): E11.22 - Type 2 diabetes mellitus with diabetic chronic kidney disease; N18.3 - Chronic kidney disease, stage 3 (moderate); N18.3 - Chronic kidney disease, stage 3 (moderate); N18.3 - Chronic kidney disease, stage 3 (moderate); Z79.4 - half-way (current) use of insulin; Z79.4 - rn long term care (current) use of insulin; Z79.4 - rn long term care (current) use of insulin; Z79.4 - half-way (current) use of insulin Is this a current diagnosis for this admission?: Yes (5) HTN (hypertension) Qualifiers: Hypertension type: essential hypertension Qualified Code(s): I10 - Essential (primary) hypertension Is this a current diagnosis for this admission?: Yes (6) History of MRSA infection Is this a current diagnosis for this admission?: Yes - Plan Summary Plan Summary: Overall the patient is improving. His appetite is improving. His hemoglobin remains low at about 9.1. Vital signs acceptable. Respiratory rate of 24 is remarkable although this is not noted on rounds. He has no respiratory difficulty. His dressings remain intact. The plan is to continue current therapy including IV antibiotic. The hope is to have him appropriately stable for discharge on Saturday the . These plans were discussed with the patient and his . They seem overall agreeable.
[2018-08-23] MEDS: DONEPEZIL HCL 5 MG TABLET PO SCH (21:34)
[2018-08-23] MEDS: GABAPENTIN 100 MG CAPSULE PO SCH (21:36)
[2018-08-23] MEDS: MIRTAZAPINE 15 MG TABLET PO SCH (21:36)
[2018-08-23] MEDS: LATANOPROST 0.005% OPH SOLN 2.5 ML OU SCH (21:38)
[2018-08-24] MEDS: LANSOPRAZOLE 15 MG TAB.RAP.DR PO SCH (05:19)
[2018-08-24] MEDS: MIDODRINE HCL 5 MG TABLET PO SCH ×2 (05:19→17:19)
[2018-08-24] MEDS: HUM INSULIN NPH/REG INSULIN HM 100 UNIT/1 ML 3 ML SUBCUT SCH ×2 (08:00→22:52)
[2018-08-24] MEDS ORDERED: ERGOCALCIFEROL (VITAMIN D2) 50000 UNIT (1.25 MG) CAPSULE PO SCH (10:00)
--- NOTE | 2018-08-24 10:50 | PDOC PROGRESS REPORT ---
Subjective Subjective:: Patient seen resting in bed comfortably. He is awake alert and conversant. He eats well and tolerates well. No fever, cough, nausea or vomiting. His potential discharge tomorrow per his primary attending Dr. Kennedy. Reason For Visit: LEFT BELOW THE KNEE AMPUTATION Physical Exam Vital Signs: Temp Pulse Resp BP Pulse Ox 97.5 F 79 16 132/52 H 100 08/24/18 07:39 08/24/18 07:39 08/24/18 07:39 08/24/18 07:39 08/24/18 07:39 Intake & Output 08/23/18 08/24/18 08/25/18 06:59 06:59 06:59 Intake Total 1583 918 Output Total 1650 1350 Balance -67 -432 Weight 64.8 kg 66.2 kg General appearance: PRESENT: no acute distress Respiratory exam: PRESENT: clear to auscultation casey. ABSENT: rales, rhonchi, wheezes Cardiovascular exam: PRESENT: RRR. ABSENT: diastolic murmur, rubs, systolic murmur GI/Abdominal exam: PRESENT: normal bowel sounds, soft. ABSENT: distended, guarding, mass, organolmegaly, rebound, tenderness Neurological exam: PRESENT: alert, awake Results Laboratory Results: 08/22/18 04:14 08/21/18 21:40 Impressions: Chest X-Ray 08/18/18 00:00 IMPRESSION: NO ACUTE RADIOGRAPHIC FINDING IN THE CHEST. Assessment & Plan - Diagnosis (1) Non-healing ulcer of left foot Is this a current diagnosis for this admission?: Yes Plan: The foot is unsalvageable so patient has left BKA. His immediate postop is smooth. (2) Chronic kidney disease, stage III (moderate) Is this a current diagnosis for this admission?: Yes Plan: His creatinine is trending down. We will avoid nephrotoxic agents. (3) Neurogenic bladder Is this a current diagnosis for this admission?: Yes Plan: Patient has chronic suprapubic indwelling Fajardo catheter. (4) Diabetes mellitus with peripheral artery disease Is this a current diagnosis for this admission?: Yes Plan: Patient has type 2 diabetes mellitus. Continue current regimen. (5) Hypothyroidism (acquired) Is this a current diagnosis for this admission?: Yes Plan: Continue Synthroid (6) Dementia Qualifiers: Dementia type: unspecified type Dementia behavioral disturbance: without behavioral disturbance Qualified Code(s): F03.90 - Unspecified dementia without behavioral disturbance Is this a current diagnosis for this admission?: Yes Plan: Home medications.
--- NOTE | 2018-08-24 11:51 | PDOC PROGRESS REPORT ---
Subjective Progress Note for:: 08/24/18 Subjective:: The patient was seen today on the postoperative evaluation. This is postoperative day #4. Reason For Visit: LEFT BELOW THE KNEE AMPUTATION Daily postoperative visit. The patient offers no complaint. No significant pain. Eating much better. 50-90% of his food. Physical Exam Vital Signs: Temp Pulse Resp BP Pulse Ox 97.5 F 79 16 132/52 H 100 08/24/18 07:39 08/24/18 07:39 08/24/18 07:39 08/24/18 07:39 08/24/18 07:39 Intake & Output 08/23/18 08/24/18 08/25/18 06:59 06:59 06:59 Intake Total 1583 918 Output Total 1650 1350 Balance -67 -432 Weight 64.8 kg 66.2 kg Additional comments: Constitutional: Well-developed well-nourished gentleman. No apparent acute distress. Eyes: Mucous membranes pink and moist, pupils equal and reactive to light. Conjunctiva normal. Cornea normal. ENT: Hearing grossly normal. External pinna normal to inspection. Teeth intact. Tongue normal to inspection. Respiratory: Normal respiratory effort. S Psychiatric: Judgment, memory, insight seem normal. Mood is pleasant and appropriate. Extremities: Upper extremities show normal range of movement. Pulses present noted to the radial arteries. Capillary refill normal. No cyanosis noted. No muscle wasting noted. Lower extremities show bilateral below-knee amputation. Mature on the right, fracture of the left. Dressings in place on the left. Clean and dry. Results Laboratory Results: 08/22/18 04:14 08/21/18 21:40 Impressions: Chest X-Ray 08/18/18 00:00 IMPRESSION: NO ACUTE RADIOGRAPHIC FINDING IN THE CHEST. 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 Qualified Code(s): Z89.512 - Acquired absence of left leg below knee Is this a current diagnosis for this admission?: Yes (2) Diabetes mellitus with peripheral artery disease Is this a current diagnosis for this admission?: Yes (3) Chronic kidney disease, stage III (moderate) Is this a current diagnosis for this admission?: Yes (4) Diabetes mellitus Qualifiers: Diabetes mellitus type: type 2 Diabetes mellitus assisted insulin use: with terminal clerk use Diabetes mellitus complication status: with kidney complications Diabetes mellitus complication detail: with chronic kidney disease Chronic kidney disease stage: stage 3 (moderate) Qualified Code(s): E11.22 - Type 2 diabetes mellitus with diabetic chronic kidney disease; N18.3 - Chronic kidney disease, stage 3 (moderate); N18.3 - Chronic kidney disease, stage 3 (moderate); N18.3 - Chronic kidney disease, stage 3 (moderate); Z79.4 - long term (current) use of insulin; Z79.4 - care home (current) use of insulin; Z79.4 - long term (current) use of insulin; Z79.4 - long term (current) use of insulin Is this a current diagnosis for this admission?: Yes (5) HTN (hypertension) Qualifiers: Hypertension type: essential hypertension Qualified Code(s): I10 - Essential (primary) hypertension Is this a current diagnosis for this admission?: Yes (6) History of MRSA infection Is this a current diagnosis for this admission?: Yes - Plan Summary Plan Summary: Overall the patient appears to be reasonably stable and progressing towards maximal hospital benefit. He is eating better, his vital signs are stable. The dressings are intact. The hope is to change his below-knee amputation dressings tomorrow and discharge him. He will have received the appropriate amount of antibiotic for the admitting infection.
[2018-08-24] MEDS: FERROUS SULFATE 325 MG TABLET PO SCH ×2 (11:57→22:51)
[2018-08-24] MEDS: FINASTERIDE 5 MG TABLET PO SCH (11:57)
[2018-08-24] MEDS: FOLIC ACID/VITAMIN B COMP W-C CAPSULE PO SCH (11:57)
[2018-08-24] MEDS: MULTIVITAMIN TABLET PO SCH (11:57)
[2018-08-24] MEDS: LEVOTHYROXINE SODIUM 0.15 MG TABLET PO SCH (11:57)
[2018-08-24] MEDS: CLOPIDOGREL BISULFATE 75 MG TABLET PO SCH (11:58)
[2018-08-24] MEDS: FENOFIBRATE NANOCRYSTALLIZED 48 MG TABLET PO SCH (11:58)
[2018-08-24] MEDS: TAMSULOSIN HCL 0.4 MG CAP.SR.24H PO SCH (11:58)
[2018-08-24] MEDS: TRAMADOL HCL 50 MG TABLET PO SCH ×2 (11:59→22:51)
[2018-08-24] MEDS: CARBOXYMETHYLCELLULOSE SOD 0.5% 0.4 ML DROPERETTE OU SCH ×4 (11:59→22:51)
[2018-08-24] MEDS: VANCOMYCIN HCL 1,000 MG in DEXTROSE 5%-WATER 250 ML IV SCH (12:00)
[2018-08-24] MEDS: INSULIN LISPRO 100 UNIT/ML 3 ML VIAL SUBCUT PRN ×2 (17:18→22:52)
[2018-08-24] MEDS: LATANOPROST 0.005% OPH SOLN 2.5 ML OU SCH (22:51)
[2018-08-24] MEDS: DONEPEZIL HCL 5 MG TABLET PO SCH (22:51)
[2018-08-24] MEDS: GABAPENTIN 100 MG CAPSULE PO SCH (22:52)
[2018-08-24] MEDS: MIRTAZAPINE 15 MG TABLET PO SCH (22:52)
[2018-08-25] MEDS: MIDODRINE HCL 5 MG TABLET PO SCH (05:50)
[2018-08-25] MEDS: LANSOPRAZOLE 15 MG TAB.RAP.DR PO SCH (05:51)
[2018-08-25] MEDS: VANCOMYCIN HCL 1,000 MG in DEXTROSE 5%-WATER 250 ML IV SCH (08:37)
[2018-08-25] MEDS: HUM INSULIN NPH/REG INSULIN HM 100 UNIT/1 ML 3 ML SUBCUT SCH (08:43)
[2018-08-25 08:59] LABS: VANCOMYCIN,TROUGH 19.7 ug/mL (5.0-20.0)
[2018-08-25] MEDS: FERROUS SULFATE 325 MG TABLET PO SCH (09:02)
[2018-08-25] MEDS: TAMSULOSIN HCL 0.4 MG CAP.SR.24H PO SCH (09:02)
[2018-08-25] MEDS: MULTIVITAMIN TABLET PO SCH (09:05)
[2018-08-25] MEDS: CLOPIDOGREL BISULFATE 75 MG TABLET PO SCH (09:05)
[2018-08-25] MEDS: FINASTERIDE 5 MG TABLET PO SCH (09:05)
[2018-08-25] MEDS: FOLIC ACID/VITAMIN B COMP W-C CAPSULE PO SCH (09:05)
[2018-08-25] MEDS: LEVOTHYROXINE SODIUM 0.15 MG TABLET PO SCH (09:05)
[2018-08-25] MEDS: FENOFIBRATE NANOCRYSTALLIZED 48 MG TABLET PO SCH (09:06)
[2018-08-25] MEDS: CARBOXYMETHYLCELLULOSE SOD 0.5% 0.4 ML DROPERETTE OU SCH ×2 (09:06→13:15)
[2018-08-25] MEDS: INSULIN LISPRO 100 UNIT/ML 3 ML VIAL SUBCUT PRN (11:23)
--- NOTE | 2018-08-25 11:47 | PDOC DISCHARGE SUMMARY ---
General - Admit/Disc Date/PCP Admission Date/Primary Care Provider: 08/18/18 17:26 SABRINA Rhiannon NASH, Admitted August 18, 2018 for treatment of infection, left foot diabetic wound. Also for major amputation the following day. Discharge Date: 08/25/18 - Discharge Diagnosis (1) Below knee amputation status Is this a current diagnosis for this admission?: Yes (2) Diabetic infection of left foot Is this a current diagnosis for this admission?: Yes (3) Diabetes mellitus with peripheral artery disease Is this a current diagnosis for this admission?: Yes (4) Chronic kidney disease, stage III (moderate) Is this a current diagnosis for this admission?: Yes (5) Diabetes mellitus Is this a current diagnosis for this admission?: Yes (6) HTN (hypertension) Is this a current diagnosis for this admission?: Yes (7) History of MRSA infection Is this a current diagnosis for this admission?: Yes - Additional Information Resuscitation Status: Full Code Home Medications: Donepezil HCl [Aricept] 10 mg PO QHS 04/19/18 Gabapentin [Neurontin 100 mg Capsule] 100 mg PO QHS 04/19/18 Latanoprost [Xalatan 0.005% Oph Soln 2.5 ml] 1 drop OU QHS 04/19/18 Levothyroxine Sodium [Synthroid 0.15 mg Tablet] 0.15 mg PO DAILY 04/19/18 Omeprazole 20 mg PO DAILY 04/19/18 Tamsulosin HCl [Flomax 0.4 mg Cap.sr] 0.4 mg PO DAILY 04/19/18 Tramadol HCl [Ultram 50 mg Tablet] 50 mg PO Q12 04/19/18 Clopidogrel Bisulfate [Plavix 75 mg Tablet] 75 mg PO DAILY tablet 04/23/18 Finasteride [Proscar 5 mg Tablet] 5 mg PO DAILY tablet 04/23/18 Hum Insulin NPH/Reg Insulin Hm [Insulin 70-30 (NPH/Reg) 100 unit/mL] 20 unit SUBCUT QHS #1 vial 04/23/18 Hum Insulin NPH/Reg Insulin Hm [Insulin 70-30 (NPH/Reg) 100 unit/mL] 24 unit SUBCUT QAM #1 vial 04/23/18 Mirtazapine [Remeron 15 mg Tablet] 15 mg PO QHS #30 tablet 04/23/18 Ondansetron [Zofran Odt 4 mg Tablet] 4 mg PO Q6HP PRN #20 tab.rapdis 04/23/18 Acetaminophen [Tylenol 325 mg Tablet] 650 mg PO Q4HP PRN 06/18/18 Fenofibrate Nanocrystallized [Tricor 48 mg Tablet] 48 mg PO DAILY 06/18/18 Insulin Lispro [Humalog] 0 unit SQ .SLIDING SCALE 06/18/18 B Complex W-C No.20/Folic Acid [Nephrocaps Softgel] 1 mg PO DAILY 08/14/18 Eyelid Cleanser Comb No.7 [Ocusoft Lid Scrub] 1 each TP BID 08/14/18 Midodrine HCl 10 mg PO Q12 08/14/18 Tetracycline HCl 250 mg PO BID MDD STARTED 08/05 FOR 10 DAYS 08/14/18 Vancomycin HCl in 5 % Dextrose [Vancomycin 1 Gram/250 ml-D5w] 1 gm IV Q6 MDD STARTED 08/05 FOR 10 DAYS 08/14/18 Ergocalciferol (Vitamin D2) [Drisdol 50,000 Unit (1.25MG) Capsule] 50,000 unit PO ESQUEDA@10 08/18/18 Ferrous Sulfate [Feosol 325 mg Tablet] 325 mg PO Q12 08/18/18 Gentamicin Sulfate [Garamycin 0.3% Oph Oint 3.5 Gm Tube] 1 applic OU DAILY MDD STARTED 08/05 FOR 14 DAYS 08/18/18 Propylene Glycol/Peg 400/Pf [Systane Ultra 0.4-0.3% Eye Drp] 1 each OU QID 08/18 History of Present Illness History of Present Illness: NELSON BHAT is a 83 year old male Hospital Course Hospital Course: The patient was admitted and placed on IV antibiotic as well as topical wound care. He was taken to the operating room the following day and a left below- knee amputation done. Subsequently continued on IV antibiotic. Problems intervening were poor appetite and somnolence. Also of significant anemia. These were treated fairly conservatively. The patient has made slow but steady progress. At this point he is quite alert and his vital signs are normal. His hemoglobin has not been checked for a few days. His renal function seems stable. The amputation site looks clean with a dressing of Steri-Strips on it. At this point the patient has achieved maximal hospital benefit and will be discharged. Physical Exam Vital Signs: Temp Pulse Resp BP Pulse Ox 98.5 F 77 18 111/54 L 100 08/25/18 08:25 08/25/18 08:25 08/25/18 08:25 08/25/18 08:25 08/25/18 08:25 Intake & Output 08/24/18 08/25/18 08/26/18 06:59 06:59 06:59 Intake Total 918 731 250 Output Total 1350 1000 Balance -432 -269 250 Weight 66.2 kg 62.4 kg Results Laboratory Results: 08/22/18 04:14 08/21/18 21:40 Impressions: Chest X-Ray 08/18/18 00:00 IMPRESSION: NO ACUTE RADIOGRAPHIC FINDING IN THE CHEST. Qualifiers - * PATIENT BEING DISCHARGED WITH ANY OF THE FOLLOWING DIAGNOSIS: No VTE patient discharged on overlapping Therapy?: No Reason(s) for not prescribing Overlap Therapy:: Not indicated Stroke Pt being discharged on Anti-thrombolytic therapy?: No Reason(s) for not prescribing Anti-thrombolytic therapy:: Not indicated Stroke Pt being discharged on Anti-coagulation therapy?: No Reason(s) for not prescribing Anti-coagulation therapy:: Not indicated Stroke Pt being discharged on Statins?: No Reason(s) for not prescribing Statins therapy:: Not indicated AR Pt being discharged on Aspirin therapy?: No Reason(s) for not prescribing Aspirin therapy:: Not indicated AR Pt being discharged on Statins?: No Reason(s) for not prescribing Statin therapy:: Not indicated AR Pt discharged ACEI/ARBS?: No Reason(s) for not prescribing ACEI/ARBS:: Not indicated HF Pt being discharged on ACEI for LVEF less than 40%?: No Reason(s) for not prescribing ACEI:: Not indicated HF Pt being discharged on ARBS for LVEF less than 40%?: No Reason(s) for not prescribing ARBS:: Not indicated HF Pt with Afib discharged with Warfarin?: No Reason(s) for not prescribing Warfarin:: Not indicated HF Pt discharged on evidence-based Beta Alice:: No Reason(s) for not prescribing evidence-based Beta Alcie:: Not indicated Plan Discharge Plan: The patient will be discharged back to his intermediate. His medications are to be as pre-discharge with addition of oral Percocet. A prescription for as needed Percocet is written and left on the chart. The left leg amputation site to be changed with Kerlix dressings as needed. 1 to be left intact on the office. The patient is to be seen in office by Dr. Mirza Kennedy MD or of the providers and also surgical clinic in 1-2 weeks.
[2018-08-25] MEDS: TRAMADOL HCL 50 MG TABLET PO SCH (12:14)
[2018-08-25 12:26] VITALS: BP 100/55
== END 2018-08-25 15:00 | DRG 240 ==
LOC: 4N 17:26
PROVIDERS: ADMIT Surgery; ATTEND Surgery
PROC: 0Y6J0Z2 Detachment at Left Lower Leg, Mid, Open Approach (ICD-10-PCS; principal; 2018-08-19 10:30)
DX: E11.51 Type 2 diabetes mellitus with diabetic peripheral angiopathy without gangrene (principal); M86.9 Osteomyelitis, unspecified; L97.409 Non-pressure chronic ulcer of unspecified heel and midfoot with unspecified severity; L97.509 Non-pressure chronic ulcer of other part of unspecified foot with unspecified severity; I73.9 Peripheral vascular disease, unspecified; I12.9 Hypertensive chronic kidney disease with stage 1 through stage 4 chronic kidney disease, or unspecified chronic kidney disease; E11.22 Type 2 diabetes mellitus with diabetic chronic kidney disease; N18.3 Chronic kidney disease, stage 3 (moderate); E03.9 Hypothyroidism, unspecified; N40.0 Benign prostatic hyperplasia without lower urinary tract symptoms; N31.9 Neuromuscular dysfunction of bladder, unspecified; F03.90 Unspecified dementia, unspecified severity, without behavioral disturbance, psychotic disturbance, mood disturbance, and anxiety; B95.62 Methicillin resistant Staphylococcus aureus infection as the cause of diseases classified elsewhere; E21.3 Hyperparathyroidism, unspecified; Z89.511 Acquired absence of right leg below knee; Z79.01 Long term (current) use of anticoagulants; Z79.82 Long term (current) use of aspirin; Z79.899 Other long term (current) drug therapy
CPT/HCPCS: 1482; 36415; 71045; 71046; 80048; 80202; 82565; 82962; 85027; 85610; 85730; 87070; 87077; 87186; 87205; 88307; 88311; 93005; 93010; 94799; J0131; J0330; J1170; J1815; J2250; J2270; J2704; J3010; J3370; J3490; J7060; J7120

== ENCOUNTER 2018-08-31 23:08 | Emergency (ER) | payer MEDICARE ==
[2018-09-01] MEDS ORDERED: DEXTROSE 50%-WATER 25 GM/50 ML DISP.SYRIN IV ONE (00:06)
[2018-09-01 00:31] LABS: HEMATOCRIT 33.2 % (37.9-51.0); HEMOGLOBIN 11.2 g/dL (13.5-17.0); MEAN CORPUSCULAR HEMOGLOBIN 30.5 pg (27.0-33.4); MEAN CORPUSCULAR HGB CONC 33.8 g/dL (32.0-36.0); MEAN CORPUSCULAR VOLUME 90 fl (80-97); PLATELET COUNT 518 10^3/uL (150-450); RED BLOOD COUNT 3.67 10^6/uL (4.35-5.55); RED CELL DISTRIBUTION WIDTH 14.4 % (11.5-14.0); WHITE BLOOD COUNT 10.6 10^3/uL (4.0-10.5)
--- NOTE | 2018-09-01 00:39 | ER Document Report ---
ED General - General Chief Complaint: Nausea/Vomiting Stated Complaint: NAUSEA,VOMITING Time Seen by Provider: 08/31/18 23:30 TRAVEL OUTSIDE OF THE [place] IN LAST 30 DAYS: No - HPI Notes: Is an 83-year-old male who is a detention resident with a recent BKA on August 18 was brought in by ambulance with chief complaint of nausea and vomiting. Patient is an unreliable historian but endorses nausea, denies vomiting, denies dizziness or lightheadedness, denies chest pain, denies shortness of breath, denies abdominal pain. - Related Data Allergies/Adverse Reactions: Sulfa (Sulfonamide Antibiotics) Allergy (Unknown, Verified 04/06/18 11:46) Unknown childhood reaction ciprofloxacin [From Cipro] Allergy (Verified 04/06/18 11:46) Vomiting Penicillins Allergy (Verified 08/20/18 10:03) Itch, rash fentanyl [Fentanyl] Adverse Reaction (Verified 04/06/18 11:46) agitation when given in conjunction with Versed midazolam HCl [From Versed] Adverse Reaction (Verified 04/06/18 11:46) agitation when given in conjunction with Fentanyl Past Medical History - Social History Smoking Status: Unknown if Ever Smoked Frequency of alcohol use: None Drug Abuse: None Family History: Reviewed & Not Pertinent, Other Patient has suicidal ideation: No Patient has homicidal ideation: No - Past Medical History Cardiac Medical History: Reports: Hx Coronary Artery Disease, Hx Heart Attack, Hx Hypercholesterolemia, Hx Hypertension Neurological Medical History: Reports: Hx Cerebrovascular Accident - x 2, 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 Denies: Hx Peritoneal Dialysis Malignancy Medical History: GI Medical History: Reports: Hx Gastroesophageal Reflux Disease. Denies: Hx Pancreatitis Musculoskeletal Medical History: Reports Hx Arthritis Psychiatric Medical History: Reports: Hx Depression Traumatic Medical History: Reports: Hx Fractures - LT hip approx 6 years ago Infectious Medical History: Reports: Hx MRSA Past Surgical History: Reports: Hx Appendectomy, Hx Cholecystectomy, Hx Orthopedic Surgery - x2 hip replacement., Other - Prior right leg amputation - Immunizations Hx Diphtheria, Pertussis, Tetanus Vaccination: Yes Hx Pneumococcal Vaccination: 10/14/14 Review of Systems - Review of Systems Constitutional: See HPI EENT: See HPI Cardiovascular: See HPI Respiratory: See HPI Gastrointestinal: See HPI Genitourinary: See HPI Male Genitourinary: No symptoms reported Musculoskeletal: No symptoms reported Skin: No symptoms reported Hematologic/Lymphatic: No symptoms reported Neurological/Psychological: No symptoms reported Physical Exam - Vital signs Vitals: Temp Pulse Resp BP Pulse Ox 98.4 F 99 17 124/61 99 08/31/18 23:13 08/31/18 23:13 08/31/18 23:13 08/31/18 23:13 08/31/18 23:13 Interpretation: Normal - General General appearance: Appears well, Alert - HEENT Head: Normocephalic, Atraumatic Eyes: Normal Pupils: PERRL - Respiratory Respiratory status: No respiratory distress Chest status: Nontender Breath sounds: Normal Chest palpation: Normal - Cardiovascular Rhythm: Regular Heart sounds: Normal auscultation Murmur: No - Abdominal Inspection: Normal Distension: No distension Bowel sounds: Normal Tenderness: Nontender Organomegaly: No organomegaly - Genitourinary Notes: Fajardo catheter present on admission. No evidence of infection at the meatus, no discharge, no erythema. - Back Back: Normal, Nontender - Extremities General upper extremity: Normal inspection, Nontender, Normal color, Normal ROM , Normal temperature General lower extremity: Normal color, Normal temperature, Other - Patient with bilateral BKA. Most recent surgery August 18. Elijah bandage still present. - Neurological Neuro grossly intact: Yes Cognition: Normal Orientation: AAOx4 [place] Coma Scale Eye Opening: Spontaneous [place] Coma Scale Verbal: Oriented [place] Coma Scale Motor: Obeys Commands [place] Coma Scale Total: 15 Speech: Normal Motor strength normal: LUE, RUE, LLE, RLE Sensory: Normal - Psychological Associated symptoms: Normal affect, Normal mood - Skin Skin Temperature: Warm Skin Moisture: Dry Skin Color: Normal Course - Re-evaluation Re-evalutation: 09/01/18 04:18 Upon reevaluation patient appeared comfortable and denied nausea. EKG showed left bundle branch block consistent with old EKG of acute STEMI. Troponin was negative. Chest x-ray showed no evidence of infiltrate or any lung pathology. CT abdomen unremarkable for any acute infection or bleed. Urinalysis showed positive leuk esterase consistent with a UTI spec graph very concentrated at 1.060. Will give additional fluid, will give ceftriaxone 1 g IV, and Keflex p.o. for discharge. - Vital Signs Vital signs: Temp Pulse Resp BP Pulse Ox 98.4 F 99 20 99/69 L 96 08/31/18 23:13 08/31/18 23:13 09/01/18 03:37 09/01/18 03:37 09/01/18 03:37 - Laboratory Result Diagrams: 08/31/18 23:45 09/01/18 00:20 Laboratory results interpreted by me: 08/31/18 09/01/18 09/01/18 23:45 00:20 03:36 WBC 10.6 H RBC 3.67 L Hgb 11.2 L Hct 33.2 L RDW 14.4 H Plt Count 518 H ALT 18 L Alkaline Phosphatase 36 L Urine Protein 100 H Urine Blood SMALL H Ur Leukocyte Esterase LARGE H Discharge - Discharge Clinical Impression: Urinary tract infection associated with indwelling urethral catheter Qualifiers: Encounter type: initial encounter Qualified Code(s): T83.511A - Infection and inflammatory reaction due to indwelling urethral catheter, initial encounter; N39.0 - Urinary tract infection, site not specified; N39.0 - Urinary tract infection, site not specified Condition: Stable Disposition: HOME-ASSISTED LIVING Additional Instructions: Were in the hospital today for nausea and vomiting. Overall, all your lab work and your scans were normal. But you were diagnosed with a urinary tract infection. You were given 1 dose of IV antibiotics while in the emergency room. You are being sent home with a of oral antibiotics that you need to take for 7 days. Develop fever chills, nausea, vomiting or your symptoms get worse please return to the emergency department. Referrals: SABRINA NASH DO [Primary Care Provider] - Follow up as needed
[2018-09-01 00:47] LABS: ALANINE AMINOTRANSFERASE 18 U/L (21-72); ALBUMIN 4.3 g/dL (3.5-5.0); ALKALINE PHOSPHATASE 36 U/L (38-126); ANION GAP 13 (5-19); ASPARTATE AMINO TRANSFERASE 19 U/L (17-59); BILIRUBIN,DIRECT 0.2 mg/dL (0.0-0.4); BILIRUBIN,TOTAL 0.6 mg/dL (0.2-1.3); BLOOD UREA NITROGEN 14 mg/dL (7-20); CALCIUM 9.1 mg/dL (8.4-10.2); CARBON DIOXIDE 23 mmol/L (22-30); CHLORIDE 105 mmol/L (98-107); GLUCOSE 100 mg/dL (75-110); POTASSIUM 4.1 mmol/L (3.6-5.0); SODIUM 141.3 mmol/L (137-145); TOTAL PROTEIN 7.1 g/dL (6.3-8.2)
--- NOTE | 2018-09-01 01:23 | RADIOLOGY REPORT (SQ) ---
EXAM DESCRIPTION: XR CHEST 1 VIEW COMPLETED DATE/TME: 09/01/2018 00:40 CLINICAL HISTORY: 83 years, Male, nausea, labored breathing COMPARISON: 08/18/2018 chest x-ray NUMBER OF VIEWS: 1 TECHNIQUE: Frontal view the chest LIMITATIONS: None. FINDINGS: Heart size is normal. Osteopenia. Multiple old right rib fractures. Lungs are clear. No pneumothorax. IMPRESSION: No acute cardiopulmonary process 2010 [employer]- All Rights Reserved
[2018-09-01] MEDS ORDERED: LIDOCAINE 2% URO-JET 5 ML KIT MM ONE (01:54)
--- NOTE | 2018-09-01 02:29 | RADIOLOGY REPORT (SQ) ---
EXAM DESCRIPTION: CT ABDOMEN PELVIS WITH IV CONTRAST COMPLETED DATE/TME: 09/01/2018 00:48 CLINICAL HISTORY: 83 years, Male, nausea, vomiting COMPARISON: 04/06/2018 CT TECHNIQUE: 415 Images stored on PACS. All CT scanners at this facility use dose modulation, iterative reconstruction, and/or weight based dosing when appropriate to reduce radiation dose to as low as reasonably achievable (ALARA). [facility]: Dose Right [facility]: CareDose [facility]: Dose Right [facility]: Teradose 4D [facility]: [employer] LIMITATIONS: None. FINDINGS: Limited evaluation of the lung bases shows minor left basilar pleural thickening. Patchy airspace opacities in the left lung base which may reflect minor pneumonitis. Osseous structures of the abdomen/pelvis demonstrate postsurgical changes with bilateral hip prostheses. Osseous structures are otherwise grossly intact. The liver, spleen, adrenal glands are unremarkable. Atrophic appearance to the pancreas. Status post cholecystectomy. The kidneys are unremarkable bilaterally. Distention of the stomach and proximal duodenum with narrowing of the bowel as it passes posterior to the superior mesenteric artery. SMA syndrome could be considered in the appropriate clinical setting. . Large amount of stool in the rectal vault. Fajardo catheter in the urinary bladder. Some equivocal rectal wall thickening and perirectal inflammatory change could reflect nonspecific proctitis. Postsurgical changes in the right midabdomen. Correlate with history. IMPRESSION: Equivocal rectal wall thickening with mild perirectal inflammatory change may reflect nonspecific proctitis. Distention of the stomach and proximal small bowel as it passes posterior to the superior mesenteric artery there is relative narrowing of the duodenum which could reflect SMA syndrome in the appropriate clinical setting. Minor left basilar pleural thickening with adjacent airspace opacity which may reflect minor pneumonitis. TECHNICAL DOCUMENTATION: Quality ID # [id number]: Final reports with documentation of one or more dose reduction techniques (e.g., Automated exposure control, adjustment of the mA and/or kV according to patient size, use of iterative reconstruction technique) 2010 [employer]- All Rights Reserved
[2018-09-01] MEDS ORDERED: NORMAL SALINE 1000 ML 500 ML IV ONE (03:07)
[2018-09-01 03:48] LABS: APPEARANCE,URINE CLOUDY; BILIRUBIN,URINE NEGATIVE (NEGATIVE); COLOR,URINE YELLOW; GLUCOSE, URINE NEGATIVE (NEGATIVE); KETONES,URINE NEGATIVE (NEGATIVE); LEUKOCYTE ESTERASE,URINE LARGE (NEGATIVE); NITRITE,URINE NEGATIVE (NEGATIVE); PROTEIN,URINE 100 mg/dL (NEGATIVE); URINE SPECIFIC GRAVITY > 1.060; UROBILINOGEN,URINE NEGATIVE mg/dL (<2.0)
[2018-09-01] MEDS ORDERED: NORMAL SALINE 1000 ML 1,000 ML IV ONE (04:23)
[2018-09-01] MEDS ORDERED: CEFTRIAXONE 1 GM/D5W RTU 1 GM/50 ML RTUPB IV SCH ×2 (05:00→06:00)
[2018-09-01] MEDS ORDERED: CEFTRIAXONE INJ 1000 MG VIAL ONE (05:02)
--- NOTE | 2018-09-01 06:59 | EKG REPORT ---
SEVERITY:- ABNORMAL ECG - SINUS TACHYCARDIA PROBABLE LEFT ATRIAL ABNORMALITY LEFT BUNDLE BRANCH BLOCK : Confirmed by: Rupali Stephen 01-Sep-2018 06:57:44
[2018-09-01 07:23] VITALS: BP 111/57
== END 2018-09-01 09:55 | disposition home health service (06) ==
LOC: ER 23:08
DX: T83.511A Infection and inflammatory reaction due to indwelling urethral catheter, initial encounter (principal); N39.0 Urinary tract infection, site not specified; Y73.8 Miscellaneous gastroenterology and urology devices associated with adverse incidents, not elsewhere classified; Y84.6 Urinary catheterization as the cause of abnormal reaction of the patient, or of later complication, without mention of misadventure at the time of the procedure; R11.2 Nausea with vomiting, unspecified; I44.7 Left bundle-branch block, unspecified; I25.2 Old myocardial infarction; E11.9 Type 2 diabetes mellitus without complications; I25.10 Atherosclerotic heart disease of native coronary artery without angina pectoris; I10 Essential (primary) hypertension; Z89.511 Acquired absence of right leg below knee; Z88.2 Allergy status to sulfonamides; Z88.1 Allergy status to other antibiotic agents; Z88.0 Allergy status to penicillin; Z86.14 Personal history of Methicillin resistant Staphylococcus aureus infection; Z90.49 Acquired absence of other specified parts of digestive tract
CPT/HCPCS: 93005; 99284; 96361; 96375; 96365; 36415; 82962; 83735; 85027; 80053; 81001; 84484; 71045; 74177; 93010; C1758; J3490; J0696; J7030; A9270